=== PATIENT | male | born 1945 | race Caucasian/White ===

== ENCOUNTER 2016-11-21 09:59 | Outpatient (CLI) | payer MEDICARE ==
[~2016-11-21] VITALS: Ht 167.6 cm; Wt 105.8 kg
[~2016-11-21 09:59] MED LIST: ASPI-587 PO; ATEN100T PO; ATEN100T88 PO; CYCL10TA45 PO; EZET1TAB26 PO; EZET1TAB41 PO; FENO135C PO; FENO135C4 PO; GLUC100016 PO; GLUC1TAB20 PO; HCT25T PO; HYDR25TA4 PO; IRBE150T19 PO; IRBE150T26 PO; LANS30CA PO; LIRA0.6P2 SQ; LIRA0.6P3 SQ; MECL-124 PO; MTF500T PO; MULT-1029 PO; NIAC500T6 PO; OMEG-109 PO; OMEG1CAP PO; OXYC-12 PO
[2016-11-21] MEDS ORDERED: FENO135C PO (10:14)
[2016-11-21] MEDS ORDERED: VITA1CAP PO (10:14)
[2016-11-21] MEDS ORDERED: TAMS0.4C98 PO (10:14)
[2016-11-21 10:18] VITALS: BP 143/82
[2016-11-21 10:47] LABS: BASOPHILS # (AUTO) 0.1 10^3/uL (0.0-0.1); BASOPHILS % (AUTO) 1 % (0-10); BILIRUBIN,URINE NEGATIVE (NEGATIVE); EOSINOPHILS # (AUTO) 0.3 10^3/uL (0.0-0.3); EOSINOPHILS % (AUTO) 4 % (0-10); KETONES,URINE NEGATIVE (NEGATIVE); LEUKOCYTE ESTERASE ,URINE NEGATIVE (NEGATIVE); LYMPHOCYTES # (AUTO) 2.2 X 10^3 (1.0-4.0); LYMPHOCYTES % (AUTO) 29 % (12-44); MEAN CORPUSCULAR HEMOGLOBIN 31 PG (25-34); MEAN CORPUSCULAR HGB CONC 35 G/DL (32-36); MEAN CORPUSCULAR VOLUME 89 FL (80-99); MEAN PLATELET VOLUME 10.2 FL (7.4-10.4); MONOCYTES # (AUTO) 0.8 X 10^3 (0.0-1.0); MONOCYTES % (AUTO) 11 % (0-12); NEUTROPHILS # (AUTO) 4.1 X 10^3 (1.8-7.8); NEUTROPHILS % (AUTO) 55 % (42-75); NITRITE,URINE NEGATIVE (NEGATIVE); PH,URINE 5 (5-9); PLATELET COUNT 117 10^3/uL (130-400); PROTEIN,URINE NEGATIVE (NEGATIVE); RED BLOOD COUNT 4.94 10^6/uL (4.35-5.85); RED CELL DISTRIBUTION WIDTH 13.5 % (10.0-14.5); UROBILINOGEN,URINE NORMAL (NORMAL); WHITE BLOOD COUNT 7.5 10^3/uL (4.3-11.0)
[2016-11-21 10:56] LABS: PROTHROMBIN TIME PATIENT 12.8 SEC (12.2-14.7)
[2016-11-21 10:58] LABS: SQUAMOUS EPITHELIAL CELL,UR RARE /HPF
[2016-11-21 11:09] LABS: ERYTHROCYTE SEDIMENTATION RATE 3 MM/HR (0-30)
[2016-11-21 11:42] LABS: ALBUMIN 4.3 GM/DL (3.2-4.5); BILIRUBIN,TOTAL 0.5 MG/DL (0.1-1.0); CALCIUM 9.4 MG/DL (8.5-10.1); CREATININE SERUM 1.37 MG/DL (0.60-1.30); POTASSIUM 3.9 MMOL/L (3.6-5.0); TOTAL PROTEIN 7.1 GM/DL (6.4-8.2)
--- NOTE | 2016-11-21 12:03 | Diagnostic Imaging Report ---
PA and lateral chest 1104 hours. INDICATION: Preop total knee replacement. FINDINGS: The heart size is within normal limits and stable when compared to 12/03/13. The lungs remain clear. There is still no sign of failure, pneumonia or pleural effusion. Mediastinum is not widened. The osseous structures are intact. IMPRESSION: There is no evidence for an acute cardiopulmonary abnormality. When compared to the prior study, there has been no significant change. Dictated by: Dictated on workstation # [id number]
[2016-11-28] MEDS ORDERED: OXYC-197 PO (12:48)
== END 2016-11-21 12:59 | disposition home or self-care (01) ==
LOC: PREOP 09:59
PROVIDERS: ATTEND Orthopaedic Surgery
DX: Z01.812 Encounter for preprocedural laboratory examination (principal); Z01.810 Encounter for preprocedural cardiovascular examination; M17.11 Unilateral primary osteoarthritis, right knee
CPT/HCPCS: 36415; 71020; 80053; 81000; 85025; 85610; 85652; 86850; 86900; 86901; 87081; 93005

== ENCOUNTER 2016-11-28 05:59 | Inpatient (IN) | payer MEDICARE ==
--- NOTE | 2016-11-20 12:48 | HISTORY AND PHYSICAL ---
DATE OF SERVICE: REASON FOR ADMISSION: On 11/28/2016 for a right total knee arthroplasty. HISTORY: The patient is a 71-year-old with progressively worsening right knee pain. He has undergone treatment with injections, arthroscopy and antiinflammatories as well as activity modifications without relief. Radiographs reveal complete loss of his medial and patellofemoral joint spaces. He reports functional impairment that has been progressive and because of this, the patient has elected to proceed with surgical intervention. REVIEW OF SYSTEMS: No chest pain, no shortness of breath, no dysuria. PAST MEDICAL HISTORY: Diabetes, reflux, hypertension, osteoarthritis, sleep apnea, hypercholesterolemia. PAST SURGICAL HISTORY: Herniorrhaphy, lipoma, bilateral knee arthroscopy, left total knee arthroplasty. FAMILY HISTORY: Significant for hypertension. PRIMARY CARE PROVIDER: ____ MEDICATIONS: 1. Victoza. 2. Metformin. 3. Avapro. 4. Prevacid. 6. Trilipix. 7. Atenolol. 8. Hydrochlorothiazide. 9 Vytorin. 10. Niacin. 11. Flomax. ALLERGIES: No known drug allergies. SOCIAL HISTORY: The patient is a former smoker and drinks alcohol socially. PHYSICAL EXAM: GENERAL: The patient is well-developed, well-nourished, in no acute distress. HEENT: Normocephalic, atraumatic. Pupils are equal, round and reactive to light. Oropharynx is clear. NECK: Supple. No lymphadenopathy. LUNGS: Clear to auscultation bilaterally. HEART: Regular rate and rhythm. ABDOMEN: Soft, nontender, nondistended. EXTREMITIES: The right knee demonstrates a moderate effusion. There is no erythema or warmth. He ambulates with an antalgic gait on the right. He has varus alignment. He has patellofemoral crepitus. Pain with patellar loading. Range of motion is 0/4/120. There is no varus or valgus laxity. Negative anterior and posterior drawer. IMPRESSION: Right knee, severe osteoarthritis, unresponsive to conservative measures. PLAN: Right total knee arthroplasty. The risks, benefits, options, ramifications and recovery were discussed at length with the patient. He understands and wishes to proceed. Job ID: [id number] DocumentID: [id number] Dictated Date: 11/20/2016 09:48:21 Woven Label Designer Date: 11/20/2016 10:06:59 Dictated By: YUDELKA URRUTIA MD
[~2016-11-28] VITALS: Ht 167.6 cm; Wt 105.8 kg
[~2016-11-28 05:59] MED LIST changes: +TAMS0.4C98 PO; +VITA1CAP PO
[2016-11-28] MEDS: LACTATED RINGERS 1,000 ML IV PRN ×3 (06:20→09:51)
[2016-11-28] MEDS ORDERED: FAMOTIDINE 20MG/2ML IV (PEPCID) ONE (06:24)
[2016-11-28] MEDS ORDERED: CEFUROXIME 1.5 GM (ZINACEF) VIAL ONE (06:24)
[2016-11-28] MEDS ORDERED: NS (IVPB) 50 ML ONE (06:25)
[2016-11-28] MEDS ORDERED: SEVOFLURANE (ULTANE) 15 ML INHAL SOLN ONE (06:30)
[2016-11-28] MEDS ORDERED: ROCURONIUM 50 MG/5 ML (ZEMURON) VIAL IV ONE (06:30)
[2016-11-28] MEDS ORDERED: proPOfol 200 MG/20 ML (DIPRIVAN) VIAL IV ONE (06:30)
[2016-11-28] MEDS ORDERED: LIDOCAINE PF 2% 5 ML (XYLOCAINE) VIAL ONE (06:30)
[2016-11-28] MEDS ORDERED: MIDAZOLAM 2 MG/2 ML (VERSED) VIAL ONE (06:30)
[2016-11-28] MEDS ORDERED: ONDANSETRON 4 MG/2 ML (SDV) Z0FRAN ONE (06:30)
[2016-11-28] MEDS ORDERED: LACTATED RINGERS 1,000 ML IV ONE ×2 (06:30→09:45)
[2016-11-28] MEDS ORDERED: fentaNYL INJECTION 100 MCG/2 ML AMP ONE (06:30)
[2016-11-28] MEDS ORDERED: CEFUROXIME 1.5 GM/NS 50 ML IVPB IV ONE ×2 (06:45)
--- NOTE | 2016-11-28 07:27 | Progress Note-Pre Operative ---
Pre-Operative Progress Note H&P Reviewed The H&P was reviewed, patient examined and no changes noted. Date Seen by Provider: Nov 28, 2016 Time Seen by Provider: 07:15 Date H&P Reviewed: Nov 28, 2016 Time H&P Reviewed: 07:11 Pre-Operative Diagnosis: right knee primary osteoarthritis YUDELKA URRUTIA MD Nov 28, 2016 07:27
--- NOTE | 2016-11-28 07:28 | Progress Note-Post Operative ---
Post-Operative Progess Note Surgeon (s)/Punch Machine Operator (s) Surgeon YUDELKA URRUTIA MD Punch Machine Operator: Blake Greco Pre-Operative Diagnosis right knee primary osteoarthritis Post-Operative Diagnosis right knee primary osteoarthritis Procedure & Operative Findings Date of Procedure 11/28/16 Procedure Performed/Findings right total knee arthroplasty Anesthesia Type GETA Estimated Blood Loss Estimated blood loss (mL): minimal Specimens/Packing Specimens Removed none Packing: none YUDELKA URRUTIA MD Nov 28, 2016 07:28
[2016-11-28] MEDS ORDERED: diphenhydrAMINE 50 MG/ML INJ (BENADRYL) IVP PRN (07:30)
[2016-11-28] MEDS ORDERED: ONDANSETRON 4 MG/2 ML (SDV) Z0FRAN IVP PRN ×2 (07:30→08:45)
[2016-11-28] MEDS ORDERED: ACETAMINOPHEN 325 MG TABLET/CAPLET (TYLENOL) PO PRN (07:30)
[2016-11-28] MEDS ORDERED: FAMOTIDINE 20MG/2ML IV (PEPCID) IV ONE (07:45)
[2016-11-28] MEDS ORDERED: INTRA-ARTICULAR INJ ONE ×5 (07:45)
[2016-11-28] MEDS ORDERED: fentaNYL INJECTION 250 MCG/5 ML AMP ONE (07:57)
[2016-11-28] MEDS ORDERED: NEOSTIGMINE (BLOXIVERZ ) 1 MG/1ML 10 ML VIAL ONE (08:17)
[2016-11-28] MEDS ORDERED: GLYCOPYRROLATE 0.2 MG/ML (ROBINUL) 2 ML VIAL ONE (08:17)
[2016-11-28] MEDS ORDERED: HYDROmorphone (DILAUDID) 2 MG/ML VIAL ONE (09:37)
[2016-11-28] MEDS: morphine INJ 10 MG/ML 1ML (SYR OR VIAL) IVP PRN ×3 (09:38→11:05)
[2016-11-28] MEDS: HYDROmorphone (DILAUDID) 2 MG/ML VIAL IVP PRN ×2 (09:45→09:55)
[2016-11-28 10:30] VITALS: BP 171/76
--- NOTE | 2016-11-28 10:52 | Diagnostic Imaging Report ---
EXAMINATION: Right knee in OR at 0933 hours. INDICATION: Total knee replacement. TECHNIQUE: AP and lateral views of the right knee were received from the OR. COMPARISON: There are no prior studies available for comparison. FINDINGS: There is a total knee prosthesis in place. The prosthetic components seem to be in good position. There is also some gas in the soft tissues about the knee joint and there are skin yen evident along the anterior margin of the knee joint. There is no fracture or acute bony abnormality evident. IMPRESSION: Stable post operative right knee. Dictated by: Dictated on workstation # [id number]
[2016-11-28] MEDS ORDERED: NS IV 500 ML 500 ML IV SCH (11:00)
[2016-11-28] MEDS: morphine PCA 30 MG/30 ML VIAL IV PRN (11:11)
[2016-11-28] MEDS: NS IV 1000 ML 1,000 ML IV SCH (11:15)
[2016-11-28 12:00] VITALS: BP 122/77
[2016-11-28] MEDS: SENNA W/DOCUSATE (SENOKOT S) TABLET PO SCH ×2 (12:06→21:16)
--- NOTE | 2016-11-28 12:31 | OPERATIVE REPORT ---
DATE OF SERVICE: 11/28/2016 PREOPERATIVE DIAGNOSIS: Right knee primary osteoarthritis. POSTOPERATIVE DIAGNOSIS: Right knee primary osteoarthritis. PROCEDURE: Right total knee arthroplasty. SURGEON: YUDELKA URRUTIA MD WELL BLOWER: CHANDRIKA NORMAN who assisted throughout the procedure and closed the incision. ANESTHESIA: General endotracheal by Billy Isaac CRNA. TOURNIQUET TIME: Approximately 70 minutes at 300 mmHg. ESTIMATED BLOOD LOSS: Minimal. DRAINS: None. COMPLICATIONS: None. MATERIALS: MicroPort cemented size 5 humerus, cemented size 5 tibia with a 10 mm insert and cemented size 32 patella. The patient was transported to the recovery room awake and in stable condition. STATEMENT OF MEDICAL NECESSITY: The patient is a 71-year-old gentleman with progressively worsening right knee pain with tricompartmental osteoarthritis. He had undergone treatment with injections, arthroscopy, activity modifications and anti-inflammatories without relief due to functional impairment and failure to improve with conservative measures. The patient elected to proceed with surgical intervention. PROCEDURE: After risks and benefits of the procedure were discussed and questions were answered, an informed consent was signed and placed on the chart. The operative site was confirmed in the preoperative area and initialed by surgeon. The patient was then transported to the operating room and a time out was performed confirming the operative site. The right lower extremity was then prepped and draped in the usual sterile fashion with the leg elevated and the knee flexed. The tourniquet was deflated to 300 mmHg. A standard anterior approach was utilized, hemostasis was obtained with cautery. A new parapatellar arthrotomy was performed leaving a 1 cm cuff on the patella for later reattachment and a portion of the fat pad was resected. The ACL was resected. Subperiosteal release was performed in the proximal medial tibia, with a curved osteotome, being careful to stay on the bony surface. The intramedullary guide was passed into the femur and the distal cutting block was placed. A distal cut was made and the femur sized to size 5. The 5 cutting block was placed parallel to the epicondylar axis and cuts were made from posterior to anterior. Subperiosteal release was then performed on the posterior distal femur, being careful to stay on the bony surface. The intramedullary guide was then passed into the tibia and the cutting block was placed. The drop colleen transected the intramedullary access and the cut was made. A 5 baseplate was placed and prepared with the drill and Keel punch after ensuring the drop colleen was well positioned. The femoral trial was placed and the trochlear cut was made. The 10 mm insert was placed. The patella was then prepared by using the free-hand technique and resecting 10 mm off the undersurface. The peg guide was placed and the peg holes were drilled. The trial was placed and the knee was taken through range of motion. Full extension was easily obtained. There was no varus/valgus laxity in flexion or extension. Trace anterior drawer and flexion. No anterior/posterior laxity in extension or through the mid range of motion. The trials were removed. The joint was copiously irrigated with the pulse lavage. The tami-articular block was placed in the posterior capsule, medial and lateral retinaculum extensor mechanism and subcutaneous tissues. The bone ends were irrigated and dried. The tibial baseplate was cemented into position and excessive cement was removed. The superior surface was irrigated and the polyethylene insert was placed. The distal femur was irrigated and dried and the femoral prosthesis was cemented into position removing excessive cement. The knee was brought out at full extension and held until the cement had cured. The undersurface of the patella was irrigated and dried and the patella button was cemented into position and held until the cement had cured. Once the cement had cured, the knee was taken through range of motion and the patella tracked well. There was no varus/valgus laxity or anterior/posterior laxity in flexion or extension. The joint was further irrigated with the pulse lavage. The arthrotomy was closed with #2 Tevdek in figure of eight interrupted fashion. The knee was then flexed and no undue tension was noted at the repair site and the patella tracked well. Subcutaneous tissues were irrigated with pulse lavage using a total of 6 liters throughout the procedure. A 0 Vicryl was used to reapproximate the deep subcutaneous tissue, 2-0 Vicryl for the superficial subcutaneous tissue. The skin was closed with yen. A soft dressing was applied and the tourniquet was deflated and the patient was transported to the recovery room awake and in stable condition. Job ID: [id number] DocumentID: [id number] Dictated Date: 11/28/2016 09:29:56 Creative Arts Therapist Date: 11/28/2016 12:31:37 Dictated By: YUDELKA URRUTIA MD
--- NOTE | 2016-11-28 12:46 | Progress Note-Standard ---
Standard Progress Note Progress Notes/Assess & Plan Date Seen by Provider: Nov 28, 2016 Time Seen by Provider: 11:40 Progress/Assessment & Plan Post op check No complaints radiographs--HW well positioned. No fractures RLE-- 2 plus DP pulse with brisk cap refill. Intact sensation throughout. Intact DF and PF of toes and ankle s/p RTKA doing well Mobilize as able YUDELKA URRUTIA MD Nov 28, 2016 12:46
[2016-11-28] MEDS ORDERED: OXYC-197 PO (12:48)
--- NOTE | 2016-11-28 12:50 | D/C HH Face to Face Order ---
D/C Face to Face Orders Instructions for Patient Patient Instructions/FollowUp: three weeks Physician to follow Patient: three weeks Discharge Diet for Home: Regular Diet Patient Data-Allergies,Ht & Wt Patient Allergies: Coded Allergies: No Known Drug Allergies (Unverified , 11/21/16) Height (Feet): 5 Height (Inches): 6.00 Weight (Pounds): 233 Weight (Ounces): 3.0 Home Health Need/Face to Face Date of Face to Face: Nov 28, 2016 Clinical Findings: Generalized weakness and fatigue, Non or partial weight bearing, Pain with ambulation I have seen Pt [id number]: Yes Discharged To: Home Diagnosis/Conditions: right total knee arthroplasty Problems/Diagnosis/Condition: Patient is Homebound due to: Joan fall risk due to instabilty, Pain w/ ambulation Homebound Status Due to the above stated illness, injury or surgical procedure (medical condition or diagnosis) and associated clinical findings, the patient is homebound because of his/her inability to leave home except with aid of a supportive device and/or person AND leaving the home requires a considerable and taxing effort or is medically contraindicated. Pt req the following assistanc: Walker Home Health Nursing Orders Home Health Services Order: Physical Therapy-Evaluate & Treat Home Health Infusion Therapy Line Start Date: Nov 28, 2016 Line Start Time: 0620 Line Type: Saline Lock Site Location: Wrist Certify Stmt I certify that this patient is under my care and that I, a nurse practitioner or a physician; a retail assistant store manager working with me, had a face to face encounter that - meets the physician face to face encounter requirements with this patient as dated. YUDELKA URRUTIA MD Nov 28, 2016 12:50
--- NOTE | 2016-11-28 14:34 | Physical Therapy Evaluation ---
PT Evaluation-General Medical Diagnosis Admission Date Nov 28, 2016 at 05:59 Medical Diagnosis: right TKA Onset Date: Nov 28, 2016 Therapy Diagnosis Therapy Diagnosis: impaired mobility, strength, ROM Height/Weight Height (Feet): 5 Height (Inches): 6.00 Weight (Pounds): 233 Weight (Ounces): 3.0 Precautions Precautions/Isolations: Standard Precautions Weight Bear Status Weight Bearing Restriction: Weight Bearing/Tolerated Location Restriction: R LE Referral Physician: Blake Greco Reason for Referral: Evaluation/Treatment Medical History Pertinent Medical History: DM, HTN, OA Additional Medical History reflux, sleep apnea, hypercholesterolemia, surg (herniorrhaphy, lipoma, bilateral knee arthroscopy, left total knee) Current History progressively worsening right knee pain, loss of medial and patellofemoral joint spaces Reviewed History: Yes Social History Home: Single Level Current Living Status: Spouse Entry Into Home: Stairs With Railing PT Steps Into Home: 1 Prior/Core FIM Prior Level of Function Functional Gunpowder Measure 0=Not Assessed/NA 4=Minimal Assistance 1=Total Assistance 5=Supervision or Setup 2=Maximal Assistance 6=Modified Gunpowder 3=Moderate Assistance 7=Complete Gunpowder Bed Mobility: 7 Transfers (B,C,W/C) (FIM): 7 Gait: 7 PT Evaluation-Current Subjective Patient in bed pre tx, agrees to PT, has no pain, states that his leg is pretty numb, but he does have intact light touch sensation. Pt/Family Goals to be independent at home Objective Patient Orientation: Person, Place, Situation Attachments: IV ROM/Strength ROM Lower Extremities right knee flexion 90 degrees, extension +5 degrees Strenght Lower Extremities NT due to recent surgery Integumentary/Posture Bowel Incontinence: No Bladder Incontinence: No Neuromuscular (Tone, Coordination, Reflexes) WNL Sensory Vision: Wears Glasses Hearing: Functional Sensation Right Lower Extremit: Intact Sensation Left Lower Extremity: Intact Transfers Functional Gunpowder Measure 0=Not Assessed/NA 4=Minimal Assistance 1=Total Assistance 5=Supervision or Setup 2=Maximal Assistance 6=Modified Gunpowder 3=Moderate Assistance 7=Complete Gunpowder Transfers (B, C, W/C) (FIM): 4 Scootin Rollin Supine to/from Sit: 5 Sit to/from Stand: 4 Patient did have some minor dizziness upon sitting and standing but it resolved quickly. Cues for safety and hand placement. Gait Mode of Locomotion: Walk Anticipated Mode of Locomotion: Walk Gait (FIM): 1 Distance: 20'x2 Gait Level of Assist: 4 Gait Persons Needed: 1 Gait Assistive Device: FWW Comments/Gait Description Antalgic, slow, decreased right step length and knee flexion Balance Sitting Static: Normal Sitting Dynamic: Normal Standing Static: Fair Standing Dynamic: Fair Treatment Patient in bed post tx with CPM donned at 60 degrees flexion and -2 degrees extension. He also performed right lower extremity supine exercises x10 (AP, QS , HS, SLR, SAQ) Assessment/Needs Patient has impaired mobility, strength, ROM post right TKA Rehab Potential: Good PT It Risk And Assurance Senior Manager Goals It Risk And Assurance Senior Manager Goals PT [facility] Goals Time Frame: Dec 05, 2016 Transfers (B,C,W/C) (FIM): 5 Gait (FIM): 5 Distance: 150' Gait Level of Assist: 5 Gait Assistive Device: FWW PT Plan Problem List Problem List: Activity Tolerance, Functional Strength, Safety, Balance, Gait, Transfer, Bed Mobility, ROM Treatment/Plan Treatment Plan: Continue Plan of Care Treatment Plan: Bed Mobility, Concurrent Therapy, Education, Functional Activity Ho, Functional Strength, Gait, Therapeutic Exercise, Transfers Treatment Duration: Dec 05, 2016 Frequency: Twice Daily (6 days a week) Estimated Hrs Per Day: .25 hour per day (15-30' per day) Patient and/or Family Agrees t: Yes Safety Risks/Education Patient Education: Gait Training, Transfer Techniques, Correct Positioning, Safety Issues Teaching Recipient: Patient Teaching Methods: Demonstration, Discussion Response to Teaching: Reinforcement Needed Discharge Recommendations Plan Patient will perform bed mobility and transfer training, balance and endurance training, functional strengthening, stair training, gait training, and education , to improve functional mobility and independence at home. Therapy D/C Recommendations: Home w/ Family Support Time/GCodes Time In: 1405 Time Out: 1430 Total Billed Treatment Time: 25 Total Billed Treatment 1 visit EVL 15' GT 10' FLORECITA GARZA PT Nov 28, 2016 14:34
[2016-11-28] MEDS: CEFUROXIME INJECTION 750 MG in NS (IVPB) 50 ML IV SCH (15:58)
[2016-11-28 16:40] VITALS: BP 133/75
[2016-11-28 19:40] VITALS: BP 128/87
[2016-11-28 23:40] VITALS: BP 130/60
[2016-11-29] MEDS: NS IV 1000 ML 1,000 ML IV SCH ×3 (00:33→13:10)
[2016-11-29] MEDS: CEFUROXIME INJECTION 750 MG in NS (IVPB) 50 ML IV SCH (00:33)
[2016-11-29 03:30] VITALS: BP 129/68
[2016-11-29] MEDS ORDERED: MULTIVIT W/MINERALS TAB (THERAGRAN M) PO SCH (07:00)
--- NOTE | 2016-11-29 07:49 | Progress Note-Standard ---
Standard Progress Note Progress Notes/Assess & Plan Date Seen by Provider: Nov 29, 2016 Time Seen by Provider: 07:48 Progress/Assessment & Plan Post op check No complaints radiographs--HW well positioned. No fractures RLE-- 2 plus DP pulse with brisk cap refill. Intact sensation throughout. Intact DF and PF of toes and ankle s/p RTKA doing well Mobilize as able Final Diagnosis No complaints Vital Signs Date Time Temp Pulse Resp B/P (MAP) Pulse Ox O2 Delivery O2 Flow Rate FiO2 11/29/16 03:30 98.6 75 20 129/68 96 Nasal Cannula 1.00 11/28/16 23:40 98.9 77 20 130/60 96 Nasal Cannula 1.00 11/28/16 20:00 95 Nasal Cannula 1.00 11/28/16 19:40 98.9 80 20 128/87 97 Nasal Cannula 1.00 11/28/16 18:24 20 11/28/16 16:40 97.0 75 18 133/75 97 Nasal Cannula 2.00 11/28/16 12:10 93 Nasal Cannula 2.50 11/28/16 12:02 98.1 11/28/16 12:02 98.1 11/28/16 12:00 97.0 71 20 122/77 95 Nasal Cannula 2.00 11/28/16 11:15 20 11/28/16 11:11 20 11/28/16 11:05 98.1 11/28/16 10:30 98.1 67 20 171/76 92 Simple Mask 2.50 11/28/16 10:30 93 Simple Mask 2.50 Laboratory Tests Test 11/29/16 06:02 Range/Units Hemoglobin 10.6 L 13.3-17.7 G/DL Hematocrit 32 L 40-54 % RLE--dressing intact. NVI distally. No calf tenderness. Neg Chloe's s/p RTKA mobilize YUDELKA URRUTIA MD Nov 29, 2016 07:49
[2016-11-29 08:00] VITALS: BP 113/70
[2016-11-29] MEDS: SENNA W/DOCUSATE (SENOKOT S) TABLET PO SCH ×2 (08:17→20:10)
[2016-11-29] MEDS: ASPIRIN E.C. 81 MG (ECOTRIN) TAB PO SCH ×2 (08:19→09:25)
[2016-11-29] MEDS: ENOXAPARIN 30 MG/0.3 ML (LOVENOX) SYR SC SCH ×2 (08:19→20:10)
[2016-11-29] MEDS: oxyCODONE/APAP 5/325MG (PERCOCET 5) TABLET PO PRN ×8 (08:59→23:29)
[2016-11-29] MEDS ORDERED: ATENOLOL 50 MG (TENORMIN) TAB PO SCH (10:28)
[2016-11-29] MEDS ORDERED: PANTOPRAZOLE 40 MG (PROTONIX) TAB PO SCH (10:29)
--- NOTE | 2016-11-29 10:53 | Consultation-Hospitalist ---
HPI History of Present Illness: HPI/Chief Complaint CC: Medical management following uncomplicated right total knee replacement POD # 1 HPI: This is a [address] Gutierrez who presented after surgery with Dr. Martinez. 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 Pt states that he already took his home meds by himself today Pt confirms PCP as Dr. 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 Pt states he recently took his pain meds Pt confirmed working with PT Physical exam stable Pt denies having BMs but is urinating regularly Pt wondered why we needed to take labs again tomorrow Scribed by Agnieszka Champagne under the direct supervision of Dr. Dowd. 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) Alcohol Use: Occasionally Uses Recreational Drug Use: No Smoking Status: Former Smoker Former Smoker, Quit: Apr 02, 1994 Physical Abuse Screen: No Sexual Abuse: No Recent Foreign Travel: No Contact w/other who traveled: No Recent Hopitalizations: No Recent Infectious Disease Expo: No Immunizations Up To Date Tetanus Booster (TDap): Unknown Pediatric: No Date of Pneumonia Vaccine: Feb 03, 2015 Seasonal Allergies Seasonal Allergies: No Surgeries Yes (ING HERNIA, BL KNEE SCOPES, GOITER REMOVED, LYPOMAS REMOVED, SKIN LESIONS, ) Respiratory Yes (USES CPAP) Sleep Apnea Currently Using CPAP: Yes Currently Using BIPAP: No Cardiovascular Yes High Cholesterol, Hypertension Neurological No Reproductive System Hx Reproductive Disorders: No Sexually Transmitted Disease: No HIV/AIDS: No Genitourinary Yes (URINARY FREQUENCY) Gastrointestinal Yes Gastroesophageal Reflux Musculoskeletal Yes (OSTEOARTHRITIS) Degenerate Disk Disease, Arthritis Endocrine History of Endocrine Disorders: Yes Endocrine Disorders: Diabetes, Non-Insulin dep HEENT History of HEENT Disorders: Yes (GLASSES, BEGINING OF CATARACTS) HEENT Disorders: Cataract Loss of Vision: Bilateral Hearing Impairment: Denies Cancer Yes (PRE-SKIN CANCER REMOVAL) Skin Psychosocial History of Psychiatric Problem: No Integumentary History of Skin or Integumenta: No Blood Transfusions History of Blood Disorders: No Adverse Reaction to a Blood Tr: No Family Medical History Family Hx: Alcoholism 19 FATHER G8 BROTHER Drug abuse G8 BROTHER No Family History of: AIDS Alzheimer's disease Arthritis Asthma Cancer of mouth Cardiovascular disease Colon cancer Completed stroke Dementia Diabetes mellitus Hypertension Kidney disease Myocardial infarction Parkinson's disease Prostate cancer Psychosocial problem Respiratory disorder Seizure disorder Severe allergy Thyroid disease Tuberculosis Review of Systems Constitutional: see HPI EENTM: no symptoms reported Respiratory: no symptoms reported Cardiovascular: no symptoms reported Gastrointestinal: no symptoms reported Genitourinary: no symptoms reported Musculoskeletal: joint pain Skin: no symptoms reported Psychiatric/Neurological: No Symptoms Reported All Other Systems Reviewed Negative Unless Noted: Yes Physical Exam Physical Exam Vital Signs Vital Sign - Last 12Hours 11/28/ 10:30 Temp 98.1 Pulse 67 Resp 20 B/P (MAP) 171/76 Pulse Ox 93 O2 Delivery Simple Mask O2 Flow Rate 2.50 Capillary Refill : Less Than 3 Seconds General Appearance: No Apparent Distress, WD/WN, Obese Eyes: Bilateral Eye Normal Inspection, Bilateral Eye PERRL HEENT: PERRL/EOMI, Normal ENT Inspection, Pharynx Normal Neck: Full Range of Motion, Normal Inspection, Non Tender, Supple, Carotid Bruit Respiratory: Chest Non Tender, Lungs Clear, Normal Breath Sounds, No Accessory Muscle Use, No Respiratory Distress Cardiovascular: Regular Rate, Rhythm, No Edema, No Gallop, No JVD, No Murmur, Normal Peripheral Pulses Gastrointestinal: Normal Bowel Sounds, No Organomegaly, No Pulsatile Mass, Non Tender, Soft Back: Normal Inspection, No CVA Tenderness, No Vertebral Tenderness Extremity: Normal Capillary Refill, Normal Inspection, Normal Range of Motion, Non Tender, No Calf Tenderness, No Pedal Edema Neurologic/Psychiatric: Alert, Oriented x3, No Motor/Sensory Deficits, Normal Mood/Affect Skin: Normal Color, Warm/Dry Lymphatic: No Adenopathy Results Results/Procedures Lab Laboratory Tests 11/29/16 06:02 Assessment/Plan Admission Diagnosis Assessment: Status post uncomplicated right total knee replacement POD # 1 Diabetes mellitus Hypertension Hyperlipidemia Obstructive sleep apnea maintained on CPAP Assessment and Plan Plan: Restart home meds Hold Hydrochlorothiazide due to low BP and propensity for hyponatremia Labs in am Clinical Quality Measures DVT/VTE Risk/Contraindication: Risk Factor Score Per Nursin RFS Level Per Nursing on Admit: 4+=Very High MARILYN DOWD DO Nov 29, 2016 10:53
[2016-11-29] MEDS ORDERED: PATIENT MAY USE OWN MEDS, ALL MC SCH (11:15)
--- NOTE | 2016-11-29 11:29 | Physical Therapy Daily Note ---
PT Daily Note-Current Subjective Patient agrees to PT. No c/o at this time. Pain Numeric Pain Scale: 8 Location: Right Location Body Site: Knee Pain Description: Acute Mental Status Patient Orientation: Normal For Age Attachments: Polar Pack, IV Transfers Functional [place] Measure 0=Not Assessed/NA 4=Minimal Assistance 1=Total Assistance 5=Supervision or Setup 2=Maximal Assistance 6=Modified [place] 3=Moderate Assistance 7=Complete IndependenceIRFPAI Quality Coding Scale 6 Independent with activity with or without an assistive device 5 Patient requires set up or clean up by helper. Patient completes activity by themselves 4 Supervision or touching assist (CGA). [place] provide cues , steadying assist 3 The helper provides less than half the effort to complete the activity 2 The helper provides more than half the effort to complete the activity 1 Dependent. The helper does all the effort to complete an activity 7 Patient refused to complete or attempt activity 9 The patient did not perform the activity before the current illness or injury 88 Not attempted due to Medical conditions or safety concerns Transfers (B, C, W/C) (FIM): 5 Scootin Rollin Supine to/from Sit: 5 Sit to/from Stand: 5 Weight Bearing Weight Bearing Restriction: Weight Bearing/Tolerated Location Restriction: R LE Gait Training Gait (FIM): 5 Distance (FIM): 3=150 ft Distance: 225' Gait Level of Assist: 5 Gait Assistive Device: FWW safe and functional with FWW Exercises Supine Ex: Ankle pumps, Quad Set, Heel Slides, Straight leg raise Supine Reps: 10 Seated Therapy Exercises: Ankle pumps, Long arc quads Seated Reps: 15 Treatments CPM 0-[address] Assessment Patient improving with treatment plan. PT encouraged patient to perform exercises PRN. PT Cooper Apprentice Goals Shelter Goals PT Cooper Apprentice Goals Time Frame: Dec 05, 2016 Transfers (B,C,W/C) (FIM): 5 Gait (FIM): 5 Distance: 150' Gait Level of Assist: 5 Gait Assistive Device: FWW PT Plan Treatment/Plan Treatment Plan: Continue Plan of Care Treatment Plan: Bed Mobility, Concurrent Therapy, Education, Functional Activity Ho, Functional Strength, Gait, Therapeutic Exercise, Transfers Treatment Duration: Dec 05, 2016 Frequency: Twice Daily (6 days a week) Estimated Hrs Per Day: .25 hour per day (15-30' per day) Patient and/or Family Agrees t: Yes Time/GCodes Time In: 810 Time Out: 835 Total Billed Treatment Time: 25 Total Billed Treatment 1 visit EX 15 min GT 10 min NOEMI HUGGINS PT Nov 29, 2016 11:29
[2016-11-29 12:00] VITALS: BP 152/72
[2016-11-29] MEDS: OMEGA 3 (FISH OIL) 1000 MG CAP PO SCH ×2 (12:33→17:30)
--- NOTE | 2016-11-29 13:39 | Physical Therapy Daily Note ---
PT Daily Note-Current Subjective Patient c/o 9/10 right knee pain. RN notified and is issuing. Pain Numeric Pain Scale: 9 Location: Right Location Body Site: Knee Pain Description: Acute Mental Status Patient Orientation: Normal For Age Attachments: Polar Pack, IV Transfers Functional [place] Measure 0=Not Assessed/NA 4=Minimal Assistance 1=Total Assistance 5=Supervision or Setup 2=Maximal Assistance 6=Modified [place] 3=Moderate Assistance 7=Complete IndependenceIRFPAI Quality Coding Scale 6 Independent with activity with or without an assistive device 5 Patient requires set up or clean up by helper. Patient completes activity by themselves 4 Supervision or touching assist (CGA). [place] provide cues , steadying assist 3 The helper provides less than half the effort to complete the activity 2 The helper provides more than half the effort to complete the activity 1 Dependent. The helper does all the effort to complete an activity 7 Patient refused to complete or attempt activity 9 The patient did not perform the activity before the current illness or injury 88 Not attempted due to Medical conditions or safety concerns Transfers (B, C, W/C) (FIM): 5 Scootin Rollin Supine to/from Sit: 5 Sit to/from Stand: 5 Weight Bearing Weight Bearing Restriction: Weight Bearing/Tolerated Location Restriction: R LE Gait Training Gait (FIM): 5 Distance (FIM): 3=150 ft Distance: 225' Gait Level of Assist: 5 Gait Assistive Device: FWW antalgic, reciprocal pattern Exercises Supine Ex: Ankle pumps, Quad Set, Heel Slides, Straight leg raise, Hip abd/add Supine Reps: 15 (to increase ROM right knee; patient has ~20 degree lack of extension) Assessment CPM 0-60 degrees with polar pack in place. Patient improving with treatment plan and is very aware of knee "block" wearing off. Patient is limited with right knee ROM due to pain and edema. Education with patient on importance of attaining knee ROM actively to benefit from elective surgery. PT Professor Of Business Administration Goals Professor Of Business Administration Goals PT Professor Of Business Administration Goals Time Frame: Dec 05, 2016 Transfers (B,C,W/C) (FIM): 5 Gait (FIM): 5 Distance: 150' Gait Level of Assist: 5 Gait Assistive Device: FWW PT Plan Treatment/Plan Treatment Plan: Continue Plan of Care Treatment Plan: Bed Mobility, Concurrent Therapy, Education, Functional Activity Ho, Functional Strength, Gait, Therapeutic Exercise, Transfers Treatment Duration: Dec 05, 2016 Frequency: Twice Daily (6 days a week) Estimated Hrs Per Day: .25 hour per day (15-30' per day) Patient and/or Family Agrees t: Yes Time/GCodes Time In: 1305 Time Out: 1330 Total Billed Treatment Time: 25 Total Billed Treatment 1 visit EX 15 min GT 10 min NOEMI HUGGINS PT Nov 29, 2016 13:39
--- NOTE | 2016-11-29 13:44 | Occ Therapy Progress Note ---
Therapy Progress Note 1330 to 1335 Pt seen in room, up in bed, present. After introduction to OT, pt indicated that he has done this before and he had no questions or concerns. Per hx, he has had L TKA. pt did not feel that he needed OT because he has all the equipment that he needs. Per patient's wishes, will DC OT. KATHIE ANDUJAR OT Nov 29, 2016 13:44
--- NOTE | 2016-11-29 14:06 | Anesthesia-General Post-Op ---
General Patient Condition Mental Status/LOC: Same as Preop Cardiovascular: Satisfactory Nausea/Vomiting: Absent Respiratory: Satisfactory Pain: Controlled Complications: Absent Post Op Complications Complications None Follow Up Care/Instructions Patient Instructions None needed. Anesthesia/Patient Condition Patient Condition Patient is doing well, no complaints, stable vital signs, no apparent adverse anesthesia problems. No complications reported per nursing. MIREYA SADLER CRNA Nov 29, 2016 14:06
[2016-11-29] MEDS: morphine PCA 30 MG/30 ML VIAL IV PRN (14:47)
[2016-11-29 16:00] VITALS: BP 148/75
[2016-11-29] MEDS: metFORMIN 500 MG (GLUCOPHAGE) TAB PO SCH (17:29)
[2016-11-29] MEDS: TAMSULOSIN 0.4MG PO SCH (17:29)
[2016-11-29 20:06] VITALS: BP 145/78
[2016-11-29] MEDS: ATENOLOL 100 MG PO SCH (20:10)
[2016-11-29] MEDS: VYTORIN PO SCH (20:11)
[2016-11-29] MEDS: FENOFIBRIC 135 MG PO SCH (20:12)
[2016-11-29] MEDS: IRBESARTAN 150 MG (AVAPRO) TAB PO SCH (20:13)
[2016-11-29] MEDS ORDERED: eZETimibe 10 MG (ZETIA) TABLET PO SCH (21:00)
[2016-11-29] MEDS ORDERED: SIMvastatin 40 MG (ZOCOR) TAB PO SCH (21:00)
[2016-11-29] MEDS: NIACIN ER (NIASPAN) 500 MG TAB PO SCH (21:30)
[2016-11-29 23:40] VITALS: BP 127/69
[2016-11-30] MEDS: NS IV 1000 ML 1,000 ML IV SCH (01:14)
[2016-11-30] MEDS: oxyCODONE/APAP 5/325MG (PERCOCET 5) TABLET PO PRN ×10 (01:31→23:40)
[2016-11-30 03:30] VITALS: BP 119/51
[2016-11-30] MEDS: OMEGA 3 (FISH OIL) 1000 MG CAP PO SCH ×2 (06:08→17:16)
[2016-11-30] MEDS: metFORMIN 500 MG (GLUCOPHAGE) TAB PO SCH ×2 (06:09→17:11)
[2016-11-30] MEDS: MULTIVIT W/MINERALS TAB (THERAGRAN M) PO SCH (06:09)
[2016-11-30] MEDS: LANSOPRAZOLE 30 MG PO SCH (06:09)
[2016-11-30 06:11] LABS: BASOPHILS % (AUTO) 0 % (0-10); EOSINOPHILS # (AUTO) 0.1 10^3/uL (0.0-0.3); EOSINOPHILS % (AUTO) 1 % (0-10); LYMPHOCYTES # (AUTO) 1.5 X 10^3 (1.0-4.0); LYMPHOCYTES % (AUTO) 14 % (12-44); MEAN CORPUSCULAR HEMOGLOBIN 31 PG (25-34); MEAN CORPUSCULAR HGB CONC 35 G/DL (32-36); MEAN CORPUSCULAR VOLUME 91 FL (80-99); MEAN PLATELET VOLUME 9.6 FL (7.4-10.4); MONOCYTES # (AUTO) 1.8 X 10^3 (0.0-1.0); MONOCYTES % (AUTO) 16 % (0-12); NEUTROPHILS # (AUTO) 7.4 X 10^3 (1.8-7.8); NEUTROPHILS % (AUTO) 69 % (42-75); PLATELET COUNT 144 10^3/uL (130-400); RED CELL DISTRIBUTION WIDTH 13.5 % (10.0-14.5); WHITE BLOOD COUNT 10.7 10^3/uL (4.3-11.0)
[2016-11-30 06:33] LABS: ALBUMIN 3.5 GM/DL (3.2-4.5); BILIRUBIN,TOTAL 0.8 MG/DL (0.1-1.0); CALCIUM 8.1 MG/DL (8.5-10.1); CREATININE SERUM 1.39 MG/DL (0.60-1.30); POTASSIUM 3.7 MMOL/L (3.6-5.0); TOTAL PROTEIN 6.1 GM/DL (6.4-8.2)
[2016-11-30] MEDS ORDERED: morphine INJ 4 MG/ML 1 ML (VIAL/SYRINGE) IVP PRN (07:00)
--- NOTE | 2016-11-30 07:02 | Progress Note-Standard ---
Standard Progress Note Progress Notes/Assess & Plan Date Seen by Provider: Nov 30, 2016 Time Seen by Provider: 06:33 Progress/Assessment & Plan POD2 Patient has no complaints and reports good pain control. States he feels ready to go home tomorrow. Rt. knee incision well approx with no warmth, erythema or drainage. Small fracture blister noted with no warmth or erythema or purulence. H and H 32 and 11. Tmax 98.3 and VSS. Calves soft and nontender with negative Chloe's signs. Able to SLR. Doing well S/P Rt. TKA Continue PT/OT/mobilization and DVT prophylaxis DC IV and SENIOR TAX ANALYST Dressing changed today. Plan to discharge to home tomorrow. CHANDRIKA PATTERSON Nov 30, 2016 07:02
[2016-11-30 08:00] VITALS: BP 142/62
[2016-11-30] MEDS: ATENOLOL 100 MG PO SCH ×2 (08:43→21:26)
[2016-11-30] MEDS: SENNA W/DOCUSATE (SENOKOT S) TABLET PO SCH ×2 (08:47→21:25)
[2016-11-30] MEDS: LIRAGLUTIDE SQ SCH (08:50)
[2016-11-30] MEDS: ENOXAPARIN 30 MG/0.3 ML (LOVENOX) SYR SC SCH ×2 (08:51→21:25)
[2016-11-30] MEDS: ASPIRIN E.C. 81 MG (ECOTRIN) TAB PO SCH (08:53)
--- NOTE | 2016-11-30 09:07 | Physical Therapy Daily Note ---
PT Daily Note-Current Subjective Patient agrees to PT. C/o 5/10 pain. Pain Numeric Pain Scale: 5-Moderate Pain Location: Right Location Body Site: Knee Pain Description: Acute Mental Status Patient Orientation: Normal For Age Attachments: Polar Pack Transfers Functional [place] Measure 0=Not Assessed/NA 4=Minimal Assistance 1=Total Assistance 5=Supervision or Setup 2=Maximal Assistance 6=Modified [place] 3=Moderate Assistance 7=Complete IndependenceIRFPAI Quality Coding Scale 6 Independent with activity with or without an assistive device 5 Patient requires set up or clean up by helper. Patient completes activity by themselves 4 Supervision or touching assist (CGA). [place] provide cues , steadying assist 3 The helper provides less than half the effort to complete the activity 2 The helper provides more than half the effort to complete the activity 1 Dependent. The helper does all the effort to complete an activity 7 Patient refused to complete or attempt activity 9 The patient did not perform the activity before the current illness or injury 88 Not attempted due to Medical conditions or safety concerns Transfers (B, C, W/C) (FIM): 6 Scootin Rollin Supine to/from Sit: 6 Sit to/from Stand: 6 Weight Bearing Weight Bearing Restriction: Weight Bearing/Tolerated Location Restriction: R LE Gait Training Gait (FIM): 6 Distance (FIM): 3=150 ft Distance: 350' Gait Level of Assist: 6 Gait Assistive Device: FWW reciprocal pattern Exercises Supine Ex: Ankle pumps, Quad Set, Heel Slides, Straight leg raise Supine Reps: 20 (to increase AROM to improve functional mobility) Seated Therapy Exercises: Long arc quads Seated Reps: 25 Assessment Patient progressing with treatment plan. He is actively performing 15-88 degrees ROM right knee. PT Shelter Goals Crisis Mental Health Therapist Goals PT Shelter Goals Time Frame: Dec 05, 2016 Transfers (B,C,W/C) (FIM): 5 Gait (FIM): 5 Distance: 150' Gait Level of Assist: 5 Gait Assistive Device: FWW PT Plan Treatment/Plan Treatment Plan: Continue Plan of Care Treatment Plan: Bed Mobility, Concurrent Therapy, Education, Functional Activity Ho, Functional Strength, Gait, Therapeutic Exercise, Transfers Treatment Duration: Dec 05, 2016 Frequency: Twice Daily (6 days a week) Estimated Hrs Per Day: .25 hour per day (15-30' per day) Patient and/or Family Agrees t: Yes Time/GCodes Time In: 815 Time Out: 838 Total Billed Treatment Time: 23 Total Billed Treatment 1 visit EX 13 min GT 10 min NOEMI HUGGINS PT Nov 30, 2016 09:07
--- NOTE | 2016-11-30 11:21 | Progress Note-Hospitalist ---
Progress Note HPI/CC on Admission CC: Medical management following uncomplicated right total knee replacement POD # 1 HPI: This is a [address] 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 Pt states that he already took his home meds by himself today Pt confirms PCP as Dr. 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 Pt states he recently took his pain meds Pt confirmed working with PT Physical exam stable Pt denies having BMs but is urinating regularly Pt wondered why we needed to take labs again tomorrow Scribed by Agnieszka Champagne under the direct supervision of Dr. Dowd. Progress Notes/Assess & Plan Date Seen 11/30/16 Time Seen by Provider: 10:00 Admission Dx/Process Assessment: Status post uncomplicated right total knee replacement POD # 1 Diabetes mellitus Hypertension Hyperlipidemia Obstructive sleep apnea maintained on CPAP Diagonsis/Assessment & Plan Patient appears to not remember me seeing him yesterday but took off his CPAP to talk to me today Rales or not moving and declines any additional medications Hyponatremia of 131 resulted from taking the hydrochlorothiazide that I told him not to yesterday and mild dehydration noted from diuretic of creatinine elevation Set for discharge tomorrow AFVSS, pleasant, O x 3 but subtle slow recall RRR, CTAB No edema Laboratory Tests 11/30/16 06:03 Assessment: Status post uncomplicated right total knee replacement POD # 2 Diabetes mellitus Hypertension Hyperlipidemia Obstructive sleep apnea maintained on CPAP Hyponatremia due to HCTZ taken yesterday before I told him to hold it since he took his home meds that his brought Mild elevated creatinine due to diuretic Post op constipation Plan: Restart home meds Hold Hydrochlorothiazide due to low BP and propensity for hyponatremia DC in am MARILYN DOWD DO Nov 30, 2016 11:21
[2016-11-30 12:00] VITALS: BP 115/55
--- NOTE | 2016-11-30 14:23 | Physical Therapy Daily Note ---
PT Daily Note-Current Subjective Patient c/o fatigue and 6/10 right knee pain. Nursing aware. Pain Numeric Pain Scale: 6 Location: Right Location Body Site: Knee Pain Description: Acute Mental Status Patient Orientation: Normal For Age Transfers Functional [place] Measure 0=Not Assessed/NA 4=Minimal Assistance 1=Total Assistance 5=Supervision or Setup 2=Maximal Assistance 6=Modified [place] 3=Moderate Assistance 7=Complete IndependenceIRFPAI Quality Coding Scale 6 Independent with activity with or without an assistive device 5 Patient requires set up or clean up by helper. Patient completes activity by themselves 4 Supervision or touching assist (CGA). [place] provide cues , steadying assist 3 The helper provides less than half the effort to complete the activity 2 The helper provides more than half the effort to complete the activity 1 Dependent. The helper does all the effort to complete an activity 7 Patient refused to complete or attempt activity 9 The patient did not perform the activity before the current illness or injury 88 Not attempted due to Medical conditions or safety concerns Transfers (B, C, W/C) (FIM): 6 Scootin Rollin Supine to/from Sit: 6 Sit to/from Stand: 6 Weight Bearing Weight Bearing Restriction: Weight Bearing/Tolerated Location Restriction: R LE Gait Training Gait (FIM): 6 Distance (FIM): 3=150 ft Distance: 350' Gait Level of Assist: 6 Gait Assistive Device: FWW antalgic, functional Exercises Supine Ex: Ankle pumps, Quad Set, Heel Slides Supine Reps: 15 Seated Therapy Exercises: Long arc quads Seated Reps: 25 Assessment Patient improving with right knee ROM. Limited by pain and edema. Will dismiss to home tomorrow. PT Professional Bass Fisher Goals Professional Bass Fisher Goals PT Skilled Nursing Goals Time Frame: Dec 05, 2016 Transfers (B,C,W/C) (FIM): 5 Gait (FIM): 5 Distance: 150' Gait Level of Assist: 5 Gait Assistive Device: FWW PT Plan Treatment/Plan Treatment Plan: Continue Plan of Care Treatment Plan: Bed Mobility, Concurrent Therapy, Education, Functional Activity Ho, Functional Strength, Gait, Therapeutic Exercise, Transfers Treatment Duration: Dec 05, 2016 Frequency: Twice Daily (6 days a week) Estimated Hrs Per Day: .25 hour per day (15-30' per day) Patient and/or Family Agrees t: Yes Time/GCodes Time In: 1300 Time Out: 1323 Total Billed Treatment Time: 23 Total Billed Treatment 1 visit EX 13 min GT 10 min NOEMI HUGGINS PT Nov 30, 2016 14:23
[2016-11-30 16:00] VITALS: BP 131/76
[2016-11-30] MEDS: TAMSULOSIN 0.4MG PO SCH (18:14)
[2016-11-30 20:43] VITALS: BP 127/60
[2016-11-30] MEDS: FENOFIBRIC 135 MG PO SCH (21:26)
[2016-11-30] MEDS: VYTORIN PO SCH (21:26)
[2016-11-30] MEDS: IRBESARTAN 150 MG (AVAPRO) TAB PO SCH (21:26)
[2016-11-30] MEDS: NIACIN ER (NIASPAN) 500 MG TAB PO SCH (21:26)
[2016-12-01 00:36] VITALS: BP 137/61
[2016-12-01] MEDS: oxyCODONE/APAP 5/325MG (PERCOCET 5) TABLET PO PRN ×4 (01:37→07:58)
[2016-12-01 03:24] VITALS: BP 117/70
[2016-12-01] MEDS: LANSOPRAZOLE 30 MG PO SCH (06:29)
[2016-12-01] MEDS: metFORMIN 500 MG (GLUCOPHAGE) TAB PO SCH (06:29)
[2016-12-01] MEDS: OMEGA 3 (FISH OIL) 1000 MG CAP PO SCH (06:29)
[2016-12-01] MEDS: MULTIVIT W/MINERALS TAB (THERAGRAN M) PO SCH (06:29)
[2016-12-01] MEDS: ENOXAPARIN 30 MG/0.3 ML (LOVENOX) SYR SC SCH (07:59)
[2016-12-01 08:00] VITALS: BP 117/56
[2016-12-01] MEDS: LIRAGLUTIDE SQ SCH (08:00)
[2016-12-01] MEDS: ATENOLOL 100 MG PO SCH (08:01)
--- NOTE | 2016-12-01 08:42 | Progress Note-Standard ---
Standard Progress Note Progress Notes/Assess & Plan Date Seen by Provider: Dec 01, 2016 Time Seen by Provider: 08:41 Progress/Assessment & Plan Post op check No complaints radiographs--HW well positioned. No fractures RLE-- 2 plus DP pulse with brisk cap refill. Intact sensation throughout. Intact DF and PF of toes and ankle s/p RTKA doing well Mobilize as able Final Diagnosis NO complaints Vital Signs Date Time Temp Pulse Resp B/P (MAP) Pulse Ox O2 Delivery O2 Flow Rate FiO2 12/01/16 03:24 98.8 93 18 117/70 95 Nasal Cannula 1.00 12/01/16 00:36 98.7 97 19 137/61 96 Nasal Cannula 1.00 11/30/16 23:05 Nasal Cannula 1.00 11/30/16 20:43 98.9 93 21 127/60 95 Nasal Cannula 1.00 11/30/16 16:00 97.3 83 20 131/76 96 Nasal Cannula 1.00 11/30/16 12:00 96.2 84 16 115/55 96 Nasal Cannula 1.00 Laboratory Tests Test 12/01/16 05:25 Range/Units Hemoglobin 9.1 L 13.3-17.7 G/DL Hematocrit 27 L 40-54 % RLE--dressing intact. No calf tenderness. pos SLR. flexion to 90 s/p RTKA doing well DC home YUDELKA URRUTIA MD Dec 01, 2016 08:42
--- NOTE | 2016-12-01 08:50 | Physical Therapy Daily Note ---
PT Daily Note-Current Subjective States that he is doing well and ready to go home. Transfers Functional [place] Measure 0=Not Assessed/NA 4=Minimal Assistance 1=Total Assistance 5=Supervision or Setup 2=Maximal Assistance 6=Modified [place] 3=Moderate Assistance 7=Complete IndependenceIRFPAI Quality Coding Scale 6 Independent with activity with or without an assistive device 5 Patient requires set up or clean up by helper. Patient completes activity by themselves 4 Supervision or touching assist (CGA). [place] provide cues , steadying assist 3 The helper provides less than half the effort to complete the activity 2 The helper provides more than half the effort to complete the activity 1 Dependent. The helper does all the effort to complete an activity 7 Patient refused to complete or attempt activity 9 The patient did not perform the activity before the current illness or injury 88 Not attempted due to Medical conditions or safety concerns Transfers (B, C, W/C) (FIM): 6 Scootin Rollin Supine to/from Sit: 6 Sit to/from Stand: 6 Gait Training Gait (FIM): 6 Distance (FIM): 3=150 ft Distance: 300 feet Gait Level of Assist: 6 Gait Assistive Device: FWW Exercises Supine Ex: Ankle pumps, Quad Set Supine Reps: 20 Seated Therapy Exercises: Long arc quads Seated Reps: 20 Assessment Current Status: Excellent Progress Patient is doing well. PT Senior Care Goals Senior Care Goals PT Senior Care Goals Time Frame: Dec 05, 2016 Transfers (B,C,W/C) (FIM): 5 Gait (FIM): 5 Distance: 150' Gait Level of Assist: 5 Gait Assistive Device: FWW PT Plan Treatment/Plan Treatment Plan: Continue Plan of Care Treatment Plan: Bed Mobility, Concurrent Therapy, Education, Functional Activity Ho, Functional Strength, Gait, Therapeutic Exercise, Transfers Treatment Duration: Dec 05, 2016 Frequency: Twice Daily (6 days a week) Estimated Hrs Per Day: .25 hour per day (15-30' per day) Patient and/or Family Agrees t: Yes Time/GCodes Time In: 819 Time Out: 0845 Total Billed Treatment Time: 25 Total Billed Treatment 1, GT x 15, EX x 10 EDIHT THORPE PT Dec 01, 2016 08:50
[2016-12-01] MEDS: SENNA W/DOCUSATE (SENOKOT S) TABLET PO SCH (09:59)
[2016-12-01] MEDS: ASPIRIN E.C. 81 MG (ECOTRIN) TAB PO SCH (09:59)
--- NOTE | 2016-12-01 11:41 | Progress Note-Hospitalist ---
Progress Note HPI/CC on Admission CC: Medical management following uncomplicated right total knee replacement POD # 1 HPI: This is a [address] 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 Pt states that he already took his home meds by himself today Pt confirms PCP as Dr. 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 Pt states he recently took his pain meds Pt confirmed working with PT Physical exam stable Pt denies having BMs but is urinating regularly Pt wondered why we needed to take labs again tomorrow Scribed by Agnieszka Champagne under the direct supervision of Dr. Dowd. Progress Notes/Assess & Plan Date Seen 12/01/16 Time Seen by Provider: 10:45 Admission Dx/Process Assessment: Status post uncomplicated right total knee replacement POD # 1 Diabetes mellitus Hypertension Hyperlipidemia Obstructive sleep apnea maintained on CPAP Diagonsis/Assessment & Plan Pt being DC today no BM but has meds at home to use AFVSS, pleasant, O x 3 but subtle slow recall RRR, CTAB No edema Assessment: Status post uncomplicated right total knee replacement POD # 3 Diabetes mellitus Hypertension Hyperlipidemia Obstructive sleep apnea maintained on CPAP Hyponatremia due to HCTZ taken yesterday before I told him to hold it since he took his home meds that his brought Mild elevated creatinine due to diuretic Post op constipation Plan: DC home MARILYN DOWD DO Dec 01, 2016 11:41
--- NOTE | 2016-12-02 10:33 | DISCHARGE SUMMARY ---
DATE OF SERVICE: 12/01/2016 DIAGNOSES: 1. Right knee primary osteoarthritis. 2. Diabetes mellitus. 3. Reflux. 4. Hypertension. 5. Osteoarthritis. 6. Sleep apnea. 7. Hypercholesterolemia. PROCEDURE: 1. Right total knee arthroplasty. SUMMARY: The patient is a 71-year-old gentleman who underwent a right total knee arthroplasty the day of admission. Postoperatively, he did well. At the time of discharge, his wound is clean and dry. He had no calf tenderness and negative Chloe's sign. He could perform straight leg raise and had active flexion to 90 degrees. He was tolerating his diet well and tolerating pain with oral pain medication. CONDITION AT DISCHARGE: Good. DISCHARGE DIET: Diabetic. FOLLOW UP: In 3 weeks. ACTIVITY: Weightbear as tolerated with walker. Home physical therapy has been arranged. Job ID: [id number] DocumentID: [id number] Dictated Date: 12/01/2016 08:41:19 Special Education Professor Date: 12/02/2016 10:32:36 Dictated By: YUDELKA URRUTIA MD
== END 2016-12-01 10:30 | disposition home or self-care (01) | DRG 470 ==
LOC: 4TH 05:59 → SURG 06:00 → 4TH 10:20
PROVIDERS: ADMIT Orthopaedic Surgery; ATTEND Orthopaedic Surgery
PROC: 0SRC0J9 Replacement of Right Knee Joint with Synthetic Substitute, Cemented, Open Approach (ICD-10-PCS; principal; 2016-11-29)
DX: M17.11 Unilateral primary osteoarthritis, right knee (principal); E11.9 Type 2 diabetes mellitus without complications; I12.9 Hypertensive chronic kidney disease with stage 1 through stage 4 chronic kidney disease, or unspecified chronic kidney disease; N18.3 Chronic kidney disease, stage 3 (moderate); G47.33 Obstructive sleep apnea (adult) (pediatric); E78.00 Pure hypercholesterolemia, unspecified; K21.9 Gastro-esophageal reflux disease without esophagitis; E66.9 Obesity, unspecified; E87.1 Hypo-osmolality and hyponatremia; E86.0 Dehydration; R35.0 Frequency of micturition; K59.09 Other constipation; Z87.891 Personal history of nicotine dependence; Z79.84 Long term (current) use of oral hypoglycemic drugs; Z96.652 Presence of left artificial knee joint; Z68.37 Body mass index [BMI] 37.0-37.9, adult; T50.2X5A Adverse effect of carbonic-anhydrase inhibitors, benzothiadiazides and other diuretics, initial encounter
CPT/HCPCS: 36415; 73560; 80053; 82962; 85014; 85018; 85025; 94664

== ENCOUNTER 2017-08-08 05:56 | Outpatient (CLI) | payer MEDICARE ==
[~2017-08-08] VITALS: Ht 167.6 cm; Wt 105.7 kg
[~2017-08-08 05:56] MED LIST changes: +OXYC-197 PO
== END 2017-08-08 13:33 ==
LOC: PREOP 05:56
PROVIDERS: ATTEND Surgery
DX: Z01.818 Encounter for other preprocedural examination (principal); R19.5 Other fecal abnormalities

== ENCOUNTER 2017-08-13 08:22 | Day surgery (SDC) | payer MEDICARE ==
[~2017-08-13] VITALS: Ht 167.6 cm; Wt 105.7 kg
[2017-08-13 08:25] VITALS: BP 127/74
[2017-08-13] MEDS ORDERED: ceFAZolin 2 GM IV Premixed 50 ML ONE (08:34)
[2017-08-13] MEDS ORDERED: LACTATED RINGERS 1,000 ML IV ONE (08:37)
[2017-08-13] MEDS ORDERED: proPOfol 200 MG/20 ML (DIPRIVAN) VIAL IV ONE (08:44)
[2017-08-13] MEDS ORDERED: PROPOFOL INJECTION 50 ML IV ONE (08:44)
[2017-08-13] MEDS ORDERED: CATHETER FLUSH 10 ML SYR IV PRN (08:45)
[2017-08-13] MEDS ORDERED: ceFAZolin 2 GM/50 ML PRE-MIX IVPB IV ONE (08:45)
[2017-08-13] MEDS ORDERED: LACTATED RINGERS 1,000 ML IV PRN (08:45)
--- NOTE | 2017-08-13 09:34 | Progress Note-Pre Operative ---
Pre-Operative Progress Note H&P Reviewed The H&P was reviewed, patient examined and no changes noted. Date Seen by Provider: August 13, 2017 Time Seen by Provider: 09:33 Date H&P Reviewed: August 13, 2017 Time H&P Reviewed: 09:33 Pre-Operative Diagnosis: occult + stool, gerd, dark stools PAVEL STONE DO August 13, 2017 09:34
--- NOTE | 2017-08-13 10:19 | Progress Note-Post Operative ---
Post-Operative Progess Note Surgeon (s)/Resource Conservationist (s) Surgeon PAVEL STONE DO Resource Conservationist: na Pre-Operative Diagnosis occult + stool, gerd, dark stools Post-Operative Diagnosis slight gastritis, rectal polyp, hemorrhoids, diverticulosis Procedure & Operative Findings Date of Procedure 08/13/17 Procedure Performed/Findings egd c biopsy antrum and colonoscopy c hot biopsy polypectomy of rectal polyp Anesthesia Type per financial aid counselor Estimated Blood Loss Estimated blood loss (mL): none Specimens/Packing Specimens Removed antrum, rectal polyp PAVEL STONE DO August 13, 2017 10:19
--- NOTE | 2017-08-13 10:21 | Discharge Inst-Simple/Standard ---
Discharge Inst-Standard Patient Instructions/Follow Up Plan of Care/Instructions/FU: 2 weeks [place] Activity as Tolerated: Yes Discharge Diet: Regular Diet (high fiber) PAVEL STONE DO August 13, 2017 10:21
[2017-08-13] MEDS ORDERED: HURRICAINE EXT TUBE (BENZOCAINE) ONE (10:28)
[2017-08-13] MEDS ORDERED: HURRICAINE EXT TUBE (BENZOCAINE) XX PRN (10:30)
[2017-08-13 10:45] VITALS: BP 106/66
[2017-08-13 11:20] VITALS: BP 125/63
[2017-08-13 11:30] VITALS: BP 125/63
--- NOTE | 2017-08-13 13:53 | Anesthesia-General Post-Op ---
MAC Patient Condition Mental Status/LOC: Same as Preop Cardiovascular: Satisfactory Nausea/Vomiting: Absent Respiratory: Satisfactory Pain: Controlled Complications: Absent Post Op Complications Complications None Follow Up Care/Instructions Patient Instructions None needed. Anesthesiology Discharge Order Discharge Order Patient is doing well, no complaints, stable vital signs, no apparent adverse anesthesia problems. No complications reported per nursing. CHANDRIKA PINO CRNA August 13, 2017 13:53
--- NOTE | 2017-08-13 16:59 | OPERATIVE REPORT ---
DATE OF SERVICE: 08/13/2017 PREOPERATIVE DIAGNOSES: Occult positive stool, gastroesophageal reflux disease, dark stools. POSTOPERATIVE DIAGNOSES: Gastritis, rectal polyp, hemorrhoids, diverticulosis. PROCEDURE: EGD with biopsy of the antrum and colonoscopy with hot biopsy polypectomy of rectal polyp. SURGEON: Pavel Alvarado DO ANESTHESIA: Per BRIDGE INSTRUCTOR. ESTIMATED BLOOD LOSS: None. COMPLICATIONS: None. INDICATIONS: The patient is a 72-year-old male with recent dark stools. He also had GERD and with occult positive stools. The patient was explained the risks and benefits of procedure and wished to proceed with procedure. Consent was signed in the chart. DESCRIPTION OF PROCEDURE: The patient was taken to the endoscopy suite, placed in left lower recumbent position. Timeout was performed. Scope was inserted into mouth, down the esophagus, stomach and into the duodenum. There are no polyps, mass or ulcerations within the duodenum. Scope was slowly retracted back into the stomach where some slight erythematous changes present. Biopsy of the antrum was obtained. Scope was retroflexed noting no other pathology. There are no polyps, masses or ulcerations. Scope was returned to its normal position, slowly withdrawn to the distal esophagus, which had normal appearance. Scope was slowly retracted back until completely removed, noting no other pathology. Digital rectal exam was performed. Some slight hemorrhoidal disease. No polyps, masses or ulcerations. Scope was inserted into the rectum and advanced all the way to the cecum with minimal difficulty. The terminal ileum was intubated noting no other pathology. Scope was withdrawn back into the colon. The prep was adequate. The scope was then slowly retracted back. There were no polyps, masses or ulcerations within the cecum, ascending, transverse, descending colon. Within the sigmoid colon, there was some diverticulosis present. No polyps, masses or ulcerations were visualized. Scope was slowly retracted back into the rectum where a small polyp was present, which hot biopsy polypectomy was performed. Scope was also retroflexed noting the hemorrhoids. No other pathology noted. Scope was returned to its normal position, slowly withdrawn until completely removed. The patient tolerated the procedure well without any complications, taken to recovery room in stable condition. RECOMMENDATIONS: The patient will follow up in the office in 2 weeks to discuss pathology results. We will see how he is doing at that time. A repeat colonoscopy in 5 years. If he has any problems prior to that should be reevaluated at that time. Job ID: [id number] DocumentID: [id number] Dictated Date: 08/13/2017 10:24:49 Water Leak Repairer Date: 08/13/2017 16:58:24 Dictated By: PAVEL ALVARADO DO
== END 2017-08-13 11:30 | disposition home or self-care (01) ==
LOC: ENDO 08:22
PROVIDERS: ATTEND Surgery
DX: D12.8 Benign neoplasm of rectum (principal); K57.30 Diverticulosis of large intestine without perforation or abscess without bleeding; K29.70 Gastritis, unspecified, without bleeding; K64.9 Unspecified hemorrhoids; R19.5 Other fecal abnormalities; E11.9 Type 2 diabetes mellitus without complications; I10 Essential (primary) hypertension; Z79.84 Long term (current) use of oral hypoglycemic drugs; Z79.899 Other long term (current) drug therapy
CPT/HCPCS: 82962; 88305

== ENCOUNTER → 2019-02-03 | Outpatient (CLI) | payer MEDICARE ==
[~2019-02-03] MED LIST changes: -OXYC-197 PO; +OXYC1TAB87 PO
--- NOTE | 2019-02-03 11:56 | Diagnostic Imaging Report ---
PROCEDURE: US Renal Bilateral. TECHNIQUE: Multiple real-time grayscale images were obtained over the kidneys in various projections bilaterally. INDICATION: Chronic kidney disease stage III. FINDINGS: Right kidney measures 11.1 x 6.5 x 5.5 cm. Left kidney measures 10.5 x 5.2 x 4.6 cm. Both kidneys demonstrate normal renal cortical thickness and echogenicity. There is no hydronephrosis, calculi or mass. Prevoid bladder volume is 96 cc. Postvoid bladder volume is 7 cc. Neither ureteral jet was visualized. IMPRESSION: Unremarkable sonographic appearance of both kidneys. Dictated by: Dictated on workstation # [id number]
== END ==
LOC: RAD 09:24
PROVIDERS: ATTEND Nurse Practitioner
DX: E11.22 Type 2 diabetes mellitus with diabetic chronic kidney disease (principal); I12.9 Hypertensive chronic kidney disease with stage 1 through stage 4 chronic kidney disease, or unspecified chronic kidney disease; N18.3 Chronic kidney disease, stage 3 (moderate); E11.21 Type 2 diabetes mellitus with diabetic nephropathy; E78.5 Hyperlipidemia, unspecified; E66.3 Overweight; M19.90 Unspecified osteoarthritis, unspecified site
CPT/HCPCS: 76770

== ENCOUNTER → 2020-02-15 | Outpatient (CLI) | payer MEDICARE ==
[~2020-02-15] MED LIST changes: +IRBE150T23 PO; -IRBE150T26 PO; -TAMS0.4C98 PO; +TMSL.4C PO
--- NOTE | 2020-02-16 08:00 | NUR ---
Notified patient of COVID Positive Test.
== END ==
LOC: LABNPT 08:46
PROVIDERS: ATTEND Internal Medicine
DX: U07.1 COVID-19 (principal)
CPT/HCPCS: 87635

== ENCOUNTER 2020-02-19 22:48 | Inpatient (IN) | payer MEDICARE ==
[~2020-02-19] VITALS: Ht 167 cm; Wt 102.8 kg
--- NOTE | 2020-02-19 23:04 | ED General ---
General Stated Complaint: COVID POSITIVE/FEVER/WEAKNESS Source of Information: Patient History of Present Illness Date Seen by Provider: Feb 19, 2020 Time Seen by Provider: 23:00 Initial Comments PT ARRIVES VIA POV FROM HOME--PT DROVE HIMSELF HERE PT HAD + COVID-19 TEST ON 02/15/20-DONE OUTPATIENT STATES HE BEGAN GETTING SICK LAST SATURDAY/SATURDAY PT C/O FEVER UP TO 106--TOOK TYLENOL AT 1900 TONIGHT, TEMP IS 102 ON ARRIVAL HERE DENIES SHORTNESS OF BREATH, BUT PT APPEARS TO BE MILDLY DYSPNEIC ON ARRIVAL C/O GENERALIZED WEAKNESS C/O NON-PRODUCTIVE COUGH C/O BODY ACHES C/O NAUSEA, HAS VOMITED A COUPLE OF TIMES TODAY. HAS HAD DIARRHEA--2 EPISODES TODAY NO LOSS OF TASTE OR SMELL NO CHEST PAIN OR PAIN WITH BREATHING. HAD A TELEPHONE VISIT ON Saturday02/15/20 AND OUTPATIENT COVID TESTING WAS DONE, WHICH WAS POSITIVE. PT LIVES AT HOME, BY HIMSELF DAUGHTER AND GRANDCHILDREN VISIT FREQUENTLY PT HAS NON-INSULIN DEPENDENT DIABETES, AND HTN DENIES ANY HISTORY OF HEART OR LUNG PROBLEMS PCP: DR. COHEN Allergies and Home Medications Allergies Coded Allergies: No Known Drug Allergies (Verified , 08/13/17) Home Medications Aspirin 81 Mg Tablet.dr, 81 MG PO HS, (Reported) Atenolol 100 Mg Tablet, 100 MG PO BID, (Reported) Ezetimibe/Simvastatin 1 Each Tablet, 1 TAB PO DAILY, (Reported) Fenofibric Acid (Choline) 135 Mg Capsule.dr, 135 MG PO DAILY, (Reported) Gluc Jessica/Chondro Jessica A/Vit C/Mn 1 Each Tablet, 1 TAB PO BID, (Reported) Hydrochlorothiazide 25 Mg Tablet, 25 MG PO DAILY, (Reported) Irbesartan 150 Mg Tablet, 150 MG PO HS, (Reported) Lansoprazole 30 Mg Capsule.dr, 30 MG PO DAILY, (Reported) Liraglutide 0.6 Mg/0.1 Ml Pen.injctr, 1.2 MG SQ DAILY, (Reported) Metformin Hcl 500 Mg Tablet, 500 MG PO BID WITH MEALS, (Reported) Mu-Vits-Min Th/Lycopene/Lutein 1 Each Tablet, 1 TAB PO HS, (Reported) Niacin 500 Mg Tablet.sa, 2,000 MG PO HS, (Reported) TAKE 4 (500MG) TABS [place]-3 Fatty Acids/Fish Oil 1 Each Capsule, 2,400 MG PO BID, (Reported) TAKES 2 (1,200 MG) CAPSULES Tamsulosin HCl 0.4 Mg Cap, 0.4 MG PO DAILY, (Reported) Vitamin B Complex 1 Each Capsule, 1 EACH PO DAILY, (Reported) Patient Home Medication List Home Medication List Reviewed: Yes Review of Systems Review of Systems Constitutional: see HPI, fever, malaise, weakness EENTM: no symptoms reported Respiratory: see HPI, cough, other (PT DENIES FEELING SHORT OF BREATH, BUT IS MILDLY DYSPNEIC ON ARRIVAL, AND HAS SOME ORTHOPNEA ON ARRIVAL. ) Cardiovascular: No chest pain, No edema, No palpitations, No syncope Gastrointestinal: see HPI; No abdominal pain; diarrhea, loss of appetite, nausea, vomiting Genitourinary: no symptoms reported Musculoskeletal: see HPI (BODY ACHES) Skin: no symptoms reported Psychiatric/Neurological: Other (PT DENIES ANY SYMPTOMS, BUT DAUGHTER REPORTED TO RN THAT HE SEEMED A LITTLE SLOW OR CONFUSED WHEN SHE TALKED TO HIM ON THE PHONE TONIGHT. ) Hematologic/Lymphatic: No Symptoms Reported Immunological/Allergic: no symptoms reported Past Yqmfaaf-Bawpxe-Acpyov Hx Past Med/Social Hx: Reviewed and Corrections made Patient Social History Smoking Status: Former Smoker Former Smoker, Quit: Apr 02, 1994 Recent Foreign Travel: No Contact w/Someone Who Travel: No Recent Hopitalizations: No Immunizations Up To Date Tetanus Booster (TDap): Unknown PED Vaccines UTD: No Date of Pneumonia Vaccine: Feb 03, 2015 Seasonal Allergies Seasonal Allergies: No Past Medical History Surgeries: Yes (ING HERNIA;BILAT KNEE SCOPES & TKR;GOITER;LIPOMAS;SKIN LES IONS;EGD/C-SCOPE ) Abdominal, Joint Replacement, Orthopedic Respiratory: Yes (USES CPAP) Sleep Apnea Currently Using CPAP: Yes Currently Using BIPAP: No Cardiac: Yes High Cholesterol, Hypertension Neurological: No Reproductive Disorders: No Sexually Transmitted Disease: No HIV/AIDS: No Genitourinary: Yes (URINARY FREQUENCY; RENAL INSUFFICIENCY) Gastrointestinal: Yes (RECTAL POLYPECTOMY; DIVERTICULAR DZ NOTED ON COLON OSCOPY;GASTRITIS) Gastroesophageal Reflux, Diverticulosis, Hemorrhoids, Polyps Musculoskeletal: Yes (OSTEOARTHRITIS;BILAT KNEE SCOPES AND BILAT TKR) Degenerate Disk Disease, Arthritis, Chronic Back Pain Endocrine: Yes (GOITER REMOVED) Diabetes, Non-Insulin dep HEENT: Yes (GLASSES, BEGINING OF CATARACTS) Cataract Loss of Vision: Bilateral Hearing Impairment: Denies Cancer: Yes (PRE-SKIN CANCER REMOVAL) Skin Did You Recieve Any Treatments: Yes What Type of Treatment Did You: Surgical Intervention Psychosocial: No Integumentary: Yes (PRECANCEROUS SKIN LESIONS; LIPOMAS) Blood Disorders: No Adverse Reaction/Blood Tranf: No Family Medical History Alcoholism 19 FATHER G8 BROTHER Drug abuse G8 BROTHER No Family History of: AIDS Alzheimer's disease Arthritis Asthma Cancer of mouth Cardiovascular disease Colon cancer Completed stroke Dementia Diabetes mellitus Hypertension Kidney disease Myocardial infarction Parkinson's disease Prostate cancer Psychosocial problem Respiratory disorder Seizure disorder Severe allergy Thyroid disease Tuberculosis Physical Exam Vital Signs Vital Signs - First Documented 02/19/20 02/20/20 22:55 00:00 Temp 38.9 Pulse 146 Resp 32 B/P (MAP) 143/99 (114) Pulse Ox 91 O2 Delivery Room Air O2 Flow Rate 3.00 FiO2 98 Capillary Refill : Height, Weight, BMI Height: 5'6.00" Weight: 233lbs. 0.0oz. 105.509191ps; 37.6 BMI Method:Stated General Appearance: WD/WN, Mild Distress, Obese, Other (MILDLY LETHARGIC. SLIGHTLY SLOW MENTATION. FACE FLUSHED AND SKIN VERY WARM, ) HEENT: PERRL/EOMI Neck: Normal Inspection Respiratory: Accessory Muscle Use, Rales, Rhonci, Other (MILDLY DYSPNEIC ; BIBASILAR RALES/RHONCHI) Cardiovascular: No JVD, No Murmur, Irregularly Irregular, Tachycardia Gastrointestinal: Non Tender, Soft Extremity: Normal Capillary Refill, Normal Range of Motion, Non Tender, Pedal Edema (TRACE EDEMA BILATERALLY) Neurologic/Psychiatric: Alert, Oriented x3, No Motor/Sensory Deficits, registry np II- XII Norm as Tested Skin: Warm/Dry (FACE FLUSHED; VERY WARM) Focused Exam Sepsis Stage: Sepsis Possible Source: Pulmonary Lactate Level 02/19/20 23:10: Lactic Acid Level 1.16 Time of Focused Exam: 23:30 Respiratory: Other (MILDLY DYSPNEIC, RALES/RHONCHI IN BASES) Cardiovascular: Irregularly Irregular, Tachycardia Skin: normal color Lactic Acid Level Laboratory Tests Test 02/19/20 23:10 Lactic Acid Level 1.16 MMOL/L (0.50-2.00) Within 3hrs of presentation: Admin fluids, Admin ABX, Blood cultures prior to ABX's, Focus exam, Lactate level Progress/Results/Core Measures Suspected Sepsis SIRS Temperature: Pulse: Respiratory Rate: Laboratory Tests 02/19/20 23:10: White Blood Count 7.9 Blood Pressure / Mean: 02/19/20 23:10: Lactic Acid Level 1.16 Laboratory Tests 02/19/20 23:10: Creatinine 2.99H, INR Comment 1.2, Platelet Count 205, Total Bilirubin 0.5 Results/Orders Lab Results Laboratory Tests Test 02/19/20 01:20 02/19/20 23:10 02/19/20 23:25 Range/Units Urine Color YELLOW Urine Clarity SL CLOUDY Urine pH 5.0 5-9 Urine Specific [place] 1.025 H 1.016-1.022 Urine Protein 2+ H NEGATIVE Urine Glucose (UA) NEGATIVE NEGATIVE Urine Ketones TRACE H NEGATIVE Urine Nitrite NEGATIVE NEGATIVE Urine Bilirubin NEGATIVE NEGATIVE Urine Urobilinogen 0.2 < = 1.0 MG/DL Urine Leukocyte Esterase NEGATIVE NEGATIVE Urine RBC (Auto) NEGATIVE NEGATIVE Urine RBC NONE /HPF Urine WBC 0-2 /HPF Urine Squamous Epithelial Cells 0-2 /HPF Urine Crystals PRESENT H /LPF Urine Amorphous Sediment MOD ROLANDO URATES H /LPF Urine Bacteria FEW H /HPF Urine Casts NONE /LPF Urine Mucus NEGATIVE /LPF Urine Culture Indicated YES White Blood Count 7.9 4.3-11.0 10^3/uL Red Blood Count 4.38 4.30-5.52 10^6/uL Hemoglobin 13.2 L 13.3-17.7 g/dL Hematocrit 39 L 40-54 % Mean Corpuscular Volume 89 80-99 fL Mean Corpuscular Hemoglobin 30 25-34 pg Mean Corpuscular Hemoglobin Concent 34 32-36 g/dL Red Cell Distribution Width 13.5 10.0-14.5 % Platelet Count 205 130-400 10^3/uL Mean Platelet Volume 10.9 9.0-12.2 fL Immature Granulocyte % (Auto) 1 % Neutrophils (%) (Auto) 85 H 42-75 % Lymphocytes (%) (Auto) 10 L 12-44 % Monocytes (%) (Auto) 5 0-12 % Eosinophils (%) (Auto) 0 0-10 % Basophils (%) (Auto) 0 0-10 % Neutrophils # (Auto) 6.7 1.8-7.8 10^3/uL Lymphocytes # (Auto) 0.8 L 1.0-4.0 10^3/uL Monocytes # (Auto) 0.4 0.0-1.0 10^3/uL Eosinophils # (Auto) 0.0 0.0-0.3 10^3/uL Basophils # (Auto) 0.0 0.0-0.1 10^3/uL Immature Granulocyte # (Auto) 0.1 0.0-0.1 10^3/uL Erythrocyte Sedimentation Rate 76 H 0-30 MM/HR Prothrombin Time 15.9 H 12.2-14.7 SEC INR Comment 1.2 0.8-1.4 Activated Partial Thromboplast Time 40 H 24-35 SEC D-Dimer 1.41 H 0.00-0.49 UG/ML Sodium Level 123 *L 135-145 MMOL/L Potassium Level 4.9 3.6-5.0 MMOL/L Chloride Level 91 L 98-107 MMOL/L Carbon Dioxide Level 15 L 21-32 MMOL/L Anion Gap 17 H 5-14 MMOL/L Blood Urea Nitrogen 47 H 7-18 MG/DL Creatinine 2.99 H 0.60-1.30 MG/DL Estimat Glomerular Filtration Rate 21 BUN/Creatinine Ratio 16 Glucose Level 125 H 70-105 MG/DL Lactic Acid Level 1.16 0.50-2.00 MMOL/L Calcium Level 8.2 L 8.5-10.1 MG/DL Corrected Calcium 8.4 L 8.5-10.1 MG/DL Magnesium Level 1.8 1.6-2.4 MG/DL Total Bilirubin 0.5 0.1-1.0 MG/DL Aspartate Amino Transf (AST/SGOT) 66 H 5-34 U/L Alanine Aminotransferase (ALT/SGPT) 40 0-55 U/L Alkaline Phosphatase 64 40-136 U/L Total Creatine Kinase 653 H 30-200 U/L Creatine Kinase MB 3.1 <6.6 NG/ML Myoglobin 708.9 H 10.0-92.0 NG/ML Troponin I < 0.028 <0.028 NG/ML C-Reactive Protein High Sensitivity 21.09 H 0.00-0.50 MG/DL B-Type Natriuretic Peptide 482.3 H <100.0 PG/ML Total Protein 7.3 6.4-8.2 GM/DL Albumin 3.8 3.2-4.5 GM/DL Procalcitonin 5.88 H <0.10 NG/ML Blood Gas Puncture Site RIGHT RADIAL Blood Gas Patient Temperature 39.3 Arterial Blood pH 7.33 *L 7.37-7.43 Arterial Blood Partial Pressure CO2 27 L 35-45 MMHG Arterial Blood Partial Pressure O2 118 H 79-93 MMHG Arterial Blood HCO3 14 *L 23-27 MMOL/L Arterial Blood Total CO2 14.3 L 21.0-31.0 MMOL/L Arterial Blood Oxygen Saturation 97 94-100 % Arterial Blood Base Excess -10.9 L -2.5-2.5 MMOL/L Jared Test UNKNOWN Blood Gas Ventilator Setting NO Blood Gas Inspired Oxygen 3 Micro Results Microbiology 02/19/20 Influenza Types A,B Antigen (CATY) - Final, Complete My Orders Orders - DEE DILLARD DO Ed Iv/Invasive Line Start (02/19/20:00) Ekg Tracing (02/19/20:) O2 (02/19/20:) Monitor-Rhythm Ecg Trace Only (02/19/20:00) BNP (02/19/20:00) Cbc With Automated Diff (02/19/20) Comprehensive Metabolic Panel (02/19/20:) Creatine Kinase (02/19/20:) Creatine Kinase Mb (02/19/20:00) Hs C Reactive Protein (02/19/20:00) Fibrin Degradation Products (02/19/20:) Lactic Acid Analyzer (02/19/20:) Magnesium (02/19/20:) Procalcitonin (Pct) (02/19/20:) Protime With Inr (02/19/20:) Partial Thromboplastin Time (02/19/20:) Ua Culture If Indicated (02/19/20:) Blood Culture (02/19/20:) Influenza A And B Antigens (02/19/20:) Erythrocyte Sedimentation Rate (02/19/20:00) Myoglobin Serum (02/19/20:) Troponin I (11/20/20 23:00) Chest 1 View, Ap/Pa Only (02/19/20 23:00) Acetaminophen Tablet (Tylenol Tablet) (02/19/20 23:15) Ibuprofen Tablet (Motrin Tablet) (02/19/20 23:15) Dexamethasone Injection (Decadron Injec (02/19/20 23:15) Ed Iv/Invasive Line Start (02/19/20 23:08) Ns Iv 1000 Ml (Sodium Chloride 0.9%) (02/19/20 23:08) Ns Iv 1000 Ml (Sodium Chloride 0.9%) (02/19/20 23:08) Enoxaparin Injection (Lovenox Injection) (02/19/20 23:15) Diltiazem Injection (Cardizem Injection) (02/19/20 23:15) Diltiazem Drip Pre-Mix (Cardizem Drip Pr (02/19/20 23:18) Diltiazem Drip Pre-Mix (Cardizem Drip Pr (02/19/20 23:45) Ceftriaxone For Iv Use (Rocephin For I (02/19/20 23:45) Azithromycin Injection (Zithromax Inject (02/19/20 23:45) Aspirin Chewable Tablet (Baby Aspirin Ch (02/19/20 23:45) Aspirin Chewable Tablet (Baby Aspirin Ch (02/19/20 23:41) Water (Sterile) For Injection (Sterile W (02/19/20 23:41) Ns (Ivpb) (Sodium Chloride 0.9%) (02/19/20 23:41) Ceftriaxone For Iv Use (Rocephin For I (02/19/20 23:41) Azithromycin Injection (Zithromax Inject (02/19/20 23:41) Arterial Blood Gas (02/19/20 23:25) Ed Iv/Invasive Line Start (02/19/20 23:59) Ns Iv 1000 Ml (Sodium Chloride 0.9%) (02/19/20 23:59) Amiodarone Injection (Cordarone Injectio (02/20/20 00:15) Amiodarone Injection (Cordarone Injectio (02/20/20 00:15) Albuterol/Ipratropium Inhaler (Combivent (02/20/20 09:00) Fluticasone/Salmeterol 115/21 (Advair Hf (02/20/20 08:00) Rt Request For Service (02/20/20 00:15) Urine Culture (02/19/20 01:20) Medications Given in ED Current Medications Medications Dose Ordered Sig/Celi Route Start Time Stop Time Status Last Admin Dose Admin Acetaminophen 1,000 mg ONCE ONCE PO 02/19/20 23:15 02/19/20 23:16 DC 02/19/20 23:16 1,000 MG Aspirin 324 mg ONCE ONCE PO 02/19/20 23:45 02/19/20 23:46 DC 02/19/20 23:49 324 MG Azithromycin 500 mg/Sodium Chloride 250 ml @ 250 mls/hr ONCE ONCE IV 02/19/20 23:45 02/20/20 00:44 DC 02/20/20 00:13 250 MLS/HR Ceftriaxone Sodium 1000 mg/ Sterile Water 10 ml @ 200 mls/hr ONCE ONCE IV 02/19/20 23:45 02/19/20 23:47 DC 02/19/20 23:50 200 MLS/HR Dexamethasone Sodium Phosphate 6 mg ONCE ONCE IV 02/19/20 23:15 02/19/20 23:16 DC 02/19/20 23:18 6 MG Diltiazem HCl 10 mg ONCE ONCE IVP 02/19/20 23:15 02/19/20 23:17 DC 02/19/20 23:22 10 MG Enoxaparin Sodium 100 mg ONCE ONCE SC 02/19/20 23:15 02/19/20 23:16 DC 02/19/20 23:36 100 MG Ibuprofen 800 mg ONCE ONCE PO 02/19/20 23:15 02/19/20 23:16 DC 02/19/20 23:16 800 MG Vital Signs/I&O 02/19/20 02/20/20 22:55 00:00 Temp 38.9 Pulse 146 Resp 32 B/P (MAP) 143/99 (114) Pulse Ox 91 O2 Delivery Room Air Nasal Cannula O2 Flow Rate 3.00 FiO2 98 Capillary Refill : Progress Note : Progress Note O2 SAT 90% ON ROOM AIR ON ARRIVAL, PLACED ON O2 AT 3L/NC AND O2 SATS UP TO 97% INITIAL HEART RATE 140-180, ATRIAL FIBRILLATION WITH RVR. GIVEN DECADRON GIVEN COMBIVENT AND ADVAIR INHALERS GIVEN LOVENOX AND ASPIRIN STARTED ON CARDIZEM--GIVEN BOLUS AND STARTED ON CARDIZEM DRIP AMIODARONE BOLUS AND DRIP GIVEN, PER DR. ROSEN'S ORDERS GIVEN ROCEPHIN AND ZITHROMAX TEMP 102.8 ON ARRIVAL--GIVEN TYLENOL AND MOTRIN--PT BEGAN TO SWEAT PROFUSELY AND TEMP DOWN TO NORMAL. HEART RATE DOWN, DID HAVE SOME HYPOTENSION WITH CARDIZEM, BUT GIVEN IV FLUIDS AND BP > 100 SYSTOLIC OTHERWISE UNEVENTFUL ER STAY. ECG Initial ECG Impression Date: Feb 19, 2020 Initial ECG Impression Time: 23:20 Initial ECG Rate: 163 Initial ECG Impression: Atrial Fibrillation w/RVR Initial ECG Comparisson: No Previous ECG Available Diagnostic Imaging Comments CXR--BILATERAL INFILTRATES, PENDING RADIOLOGIST REVIEW Reviewed: Reviewed by Me Critical Care Note Critical Care Total Time (minutes) 30 Departure Communication (Admissions) Family Conversation [id number]--SPOKE WITH PT'S DAUGHTER, AND UPDATED HER ON PT'S CONDITION. ADVISED OF NEED FOR QUARANTINE FOR HER ENTIRE HOUSEHOLD. 0001--SPOKE WITH DR. HORN, HOSPITALIST, ACCEPTS PT FOR ADMIT [id number]--SPOKE WITH DR. ROSEN, FORM DRAFTER. ORDERS NOTED TO ADD AMIODARONE BOLUS AND DRIP, IN ADDITION TO CARDIZEM DRIP [id number]--CALLED E-ICU AND REPORT GIVEN TO PHYSICIAN. Impression Primary Impression: Pneumonia due to COVID-19 virus Additional Impressions: Acute respiratory failure due to COVID-19 Acute renal failure superimposed on chronic kidney disease Hyponatremia NEW ONSET ATRIAL FIBRILLATION WITH RAPID VENTRICULAR RESPONSE Non-insulin dependent diabetes mellitus Sepsis Acidosis Disposition: ADMITTED INPATIENT Condition: Stable Admissions Decision to Admit Reason: Admit from ER (General) Decision to Admit/Date: Feb 20, 2020 Time/Decision to Admit Time: 00:01 Departure-Patient Inst. Referrals: ASIM COHEN MD (PCP/Family) Primary Care Physician DEE DILLARD DO Feb 19, 2020 23:04
[2020-02-19] MEDS ORDERED: NS IV 1000 ML 1,000 ML IV SCH ×2 (23:08→23:59)
[2020-02-19] MEDS ORDERED: NS IV 1000 ML 1,000 ML ONE (23:08)
[2020-02-19] MEDS ORDERED: ENOXAPARIN 100 MG/1 ML (LOVENOX) SYR SC ONE (23:15)
[2020-02-19] MEDS ORDERED: IBUPROFEN 800 MG (MOTRIN) TAB PO ONE (23:15)
[2020-02-19] MEDS ORDERED: ACETAMINOPHEN 500 MG TAB (TYLENOL) PO ONE (23:15)
[2020-02-19] MEDS ORDERED: dilTIAZem DRIP PRE-MIX 125 ML IV ONE (23:18)
[2020-02-19 23:23] LABS: BASOPHILS % (AUTO) 0 % (0-10); EOSINOPHILS % (AUTO) 0 % (0-10); HEMATOCRIT 39 % (40-54); HEMOGLOBIN 13.2 g/dL (13.3-17.7); LYMPHOCYTES # (AUTO) 0.8 10^3/uL (1.0-4.0); LYMPHOCYTES % (AUTO) 10 % (12-44); MEAN CORPUSCULAR HEMOGLOBIN 30 pg (25-34); MEAN CORPUSCULAR HGB CONC 34 g/dL (32-36); MEAN CORPUSCULAR VOLUME 89 fL (80-99); MEAN PLATELET VOLUME 10.9 fL (9.0-12.2); MONOCYTES # (AUTO) 0.4 10^3/uL (0.0-1.0); MONOCYTES % (AUTO) 5 % (0-12); NEUTROPHILS # (AUTO) 6.7 10^3/uL (1.8-7.8); NEUTROPHILS % (AUTO) 85 % (42-75); PLATELET COUNT 205 10^3/uL (130-400); WHITE BLOOD COUNT 7.9 10^3/uL (4.3-11.0)
--- NOTE | 2020-02-19 23:30 | NUR ---
Late entry: Pt here with shob, fever, and general malaise after being diagnosed with Covid on the . Pt reports he last had antipyretics at 1900hrs today. Pt is tachypneic and tachycardic with a-fib rvr noted. Pt denies hx of a-fib. Pt to bed and onto monitor; IV started and labs drawn. Pt to 02 at 3 lpm. ECG obtained.
[2020-02-19 23:37] LABS: ALBUMIN 3.8 GM/DL (3.2-4.5); CHLORIDE 91 MMOL/L (98-107); POTASSIUM 4.9 MMOL/L (3.6-5.0)
[2020-02-19 23:38] LABS: CALCIUM 8.2 MG/DL (8.5-10.1)
[2020-02-19 23:39] LABS: FIBRIN DEGRADATION PRODUCTS 1.41 UG/ML (0.00-0.49); INR 1.2 (0.8-1.4); PROTHROMBIN TIME PATIENT 15.9 SEC (12.2-14.7)
[2020-02-19 23:40] LABS: GLUCOSE 125 MG/DL (70-105); TOTAL PROTEIN 7.3 GM/DL (6.4-8.2)
[2020-02-19 23:41] LABS: CARBON DIOXIDE 15 MMOL/L (21-32)
[2020-02-19] MEDS ORDERED: cefTRIAXone 1,000 MG IV (ROCEPHIN) VIAL ONE (23:41)
[2020-02-19] MEDS ORDERED: NS (IVPB) 0 ML ONE (23:41)
[2020-02-19] MEDS ORDERED: WATER (STERILE) FOR INJECTION 0 ML ONE (23:41)
[2020-02-19] MEDS ORDERED: AZITHROMYCIN INJECTION 500 MG/5 ML VIAL ONE (23:41)
[2020-02-19] MEDS ORDERED: ASPIRIN 81 MG CHEW (CHILDREN'S ASA) ONE (23:41)
[2020-02-19 23:42] LABS: BILIRUBIN,TOTAL 0.5 MG/DL (0.1-1.0)
[2020-02-19 23:43] LABS: ALKALINE PHOSPHATASE 64 U/L (40-136); CREATININE SERUM 2.99 MG/DL (0.60-1.30); GFR ESTIMATED 21
[2020-02-19] MEDS ORDERED: dilTIAZem DRIP PRE-MIX 125 ML IV SCH (23:45)
[2020-02-19] MEDS ORDERED: ASPIRIN 81 MG CHEW (CHILDREN'S ASA) PO ONE (23:45)
[2020-02-19] MEDS ORDERED: cefTRIAXone FOR IV USE 1,000 MG in WATER (STERILE) FOR INJECTION 10 ML IV ONE (23:45)
[2020-02-19] MEDS ORDERED: AZITHROMYCIN INJECTION 500 MG in NS (IVPB) 250 ML IV ONE (23:45)
[2020-02-19 23:46] LABS: ALANINE AMINOTRANSFERASE 40 U/L (0-55); MAGNESIUM 1.8 MG/DL (1.6-2.4)
[2020-02-19 23:47] LABS: CREATINE KINASE 653 U/L (30-200)
[2020-02-19 23:49] LABS: ERYTHROCYTE SEDIMENTATION RATE 76 MM/HR (0-30)
[2020-02-19 23:54] LABS: BUN/CREATININE RATIO 16; CREATINE KINASE MB 3.1 NG/ML (<6.6)
[2020-02-19 23:56] LABS: SODIUM 123 MMOL/L (135-145)
[2020-02-19 23:58] LABS: ABG BASE EXCESS -10.9 MMOL/L (-2.5-2.5); ABG OXYGEN SATURATION 97 % (94-100); ABG PCO2 27 MMHG (35-45); ABG PO2 118 MMHG (79-93); ABG TCO2 14.3 MMOL/L (21.0-31.0)
[2020-02-20] LABS: ABG PH 7.33 (7.37-7.43); INSPIRED O2 3; PATIENT TEMP 39.3; VENTILATOR NO
--- NOTE | 2020-02-20 00:05 | NUR ---
Pt very diaphoretic; IV to left AC noted to have dc'd self due to sweating and loss of IV secure. 2 other IV's started.
[2020-02-20] MEDS ORDERED: AMIODARONE INJECTION 450 MG in D5W IV SOLUTION (EXCEL) 250 ML IV SCH (00:15)
[2020-02-20] MEDS ORDERED: AMIODARONE INJECTION 150 MG in D5W 100 ML IVPB 100 ML IV ONE (00:15)
[2020-02-20] MEDS ORDERED: ALBUTEROL/IPRATROP (COMBIVENT RESPIMAT) 4 GM INHALER ONE (00:53)
[2020-02-20] MEDS ORDERED: ADVAIR HFA 115/21 MCG INHALER 8 GM IH ONE ×2 (00:53→08:00)
[2020-02-20 01:27] LABS: BILIRUBIN,URINE NEGATIVE (NEGATIVE); CLARITY,URINE SL CLOUDY; COLOR,URINE YELLOW; GLUCOSE, URINE (UA) NEGATIVE (NEGATIVE); KETONES,URINE TRACE (NEGATIVE); LEUKOCYTE ESTERASE ,URINE NEGATIVE (NEGATIVE); NITRITE,URINE NEGATIVE (NEGATIVE); PROTEIN,URINE 2+ (NEGATIVE)
[2020-02-20 01:42] LABS: BACTERIA,URINE FEW /HPF; WBC,URINE 0-2 /HPF
[2020-02-20 01:43] LABS: SQUAMOUS EPITHELIAL CELL,UR 0-2 /HPF
[2020-02-20 01:44] LABS: AMORPHOUS SEDIMENT,UR MOD AMOR URATES /LPF
[2020-02-20] MEDS ORDERED: ACETAMINOPHEN 500 MG TAB (TYLENOL) PO PRN (02:15)
[2020-02-20] MEDS ORDERED: ONDANSETRON 4 MG/2 ML (SDV) Z0FRAN IVP PRN (02:15)
[2020-02-20] MEDS ORDERED: IBUPROFEN 800 MG (MOTRIN) TAB PO PRN (02:15)
[2020-02-20] MEDS: NS IV 1000 ML 1,000 ML IV SCH ×2 (02:43→10:00)
[2020-02-20] MEDS: POTASSIUM CL 10MEQ/50ML IVPB 50 ML IV SCH (05:25)
[2020-02-20] MEDS: MAGNESIUM 1 GM/100 ML IVPB 100 ML IV SCH (05:26)
[2020-02-20] MEDS: KCL 20 MEQ TAB (K-DUR) PO SCH (05:26)
[2020-02-20] MEDS: inSUlin ASPART (NovoLOG) 1 UNIT/0.01 ML (CHARGE PER UNIT) SC SCH ×4 (05:48→20:55)
[2020-02-20 06:21] LABS: BASOPHILS % (AUTO) 0 % (0-10); EOSINOPHILS % (AUTO) 0 % (0-10); HEMATOCRIT 35 % (40-54); HEMOGLOBIN 11.3 g/dL (13.3-17.7); LYMPHOCYTES # (AUTO) 0.6 10^3/uL (1.0-4.0); LYMPHOCYTES % (AUTO) 9 % (12-44); MEAN CORPUSCULAR HEMOGLOBIN 30 pg (25-34); MEAN CORPUSCULAR HGB CONC 32 g/dL (32-36); MEAN CORPUSCULAR VOLUME 91 fL (80-99); MEAN PLATELET VOLUME 11.3 fL (9.0-12.2); MONOCYTES # (AUTO) 0.2 10^3/uL (0.0-1.0); MONOCYTES % (AUTO) 3 % (0-12); NEUTROPHILS # (AUTO) 5.7 10^3/uL (1.8-7.8); NEUTROPHILS % (AUTO) 86 % (42-75); PLATELET COUNT 157 10^3/uL (130-400); WHITE BLOOD COUNT 6.6 10^3/uL (4.3-11.0)
[2020-02-20 06:38] LABS: ALBUMIN 3.3 GM/DL (3.2-4.5); CHLORIDE 96 MMOL/L (98-107); POTASSIUM 5.4 MMOL/L (3.6-5.0)
[2020-02-20 06:39] LABS: CALCIUM 7.2 MG/DL (8.5-10.1)
[2020-02-20 06:40] LABS: GLUCOSE 310 MG/DL (70-105)
[2020-02-20 06:41] LABS: TOTAL PROTEIN 6.2 GM/DL (6.4-8.2)
[2020-02-20 06:42] LABS: BILIRUBIN,TOTAL 0.4 MG/DL (0.1-1.0); CARBON DIOXIDE 10 MMOL/L (21-32)
[2020-02-20 06:44] LABS: ALKALINE PHOSPHATASE 61 U/L (40-136); CREATININE SERUM 3.02 MG/DL (0.60-1.30); GFR ESTIMATED 20
[2020-02-20 06:45] LABS: BUN/CREATININE RATIO 16
[2020-02-20 06:47] LABS: ALANINE AMINOTRANSFERASE 60 U/L (0-55)
[2020-02-20 06:48] LABS: SODIUM 121 MMOL/L (135-145)
[2020-02-20] MEDS: ASPIRIN E.C. 325 MG (ECOTRIN) TABLET PO SCH (08:38)
--- NOTE | 2020-02-20 08:41 | Diagnostic Imaging Report ---
EXAMINATION: Chest radiograph, portable AP view. DATE: 02/19/2020 11:43 PM hours. INDICATION: 74-year-old male, COVID positive. Fever and shortness of breath. COMPARISON: November 21, 2016. FINDINGS: There is multifocal bilateral lung consolidation which is an interval change since the comparison study. Heart size and mediastinal contours are grossly unchanged given differences in technique and lung volumes. There is no identified pneumothorax. There are technical limitations of the exam relating to patient body habitus and difficulties with exposure. There appear to be bilateral carotid vascular calcifications. IMPRESSION: 1. Multifocal nonspecific bilateral alveolar consolidation. This potentially can be seen with provided history of COVID 19 infection. Dictated by: Dictated on workstation # [id number]
[2020-02-20] MEDS ORDERED: ALBUTEROL/IPRATROP (COMBIVENT RESPIMAT) 4 GM INHALER IH ONE (09:00)
[2020-02-20] MEDS: AMIODARONE 450 MG/250 ML D5W EXCEL IV SCH ×4 (09:04→23:54)
[2020-02-20] MEDS ORDERED: NS IV 500 ML 500 ML IV SCH (09:27)
[2020-02-20] MEDS: SODIUM CHLORIDE 3% 500 ML IV SCH ×3 (09:34→17:04)
--- NOTE | 2020-02-20 09:37 | History & Physical-Hospitalist ---
History of Present Illness HPI/Chief Complaint Pt is a 74yoCM with a PMH HTN, HLD, NIDDMII who presented to the ER due to confusion. He was tested for COVID on 02/14 and was found to be positive. He became symptomatic roughly 1 week ago with fevers and malaise. He states that yesterday he became confused and his daughter advised him to seek evaluation in the ER. He was febrile on a arrival and reports it was up to 106 at home. He was in a-fib, which is new for him on arrival as well. He did not tolerate cardizem gtt in the ER and was switched to amiodarone gtt. He had nausea and poor oral intake. He had two episodes of diarrhea yesterday. Source: patient Exam Limitations: no limitations Date Seen 02/20/20 Time Seen by a Provider: 09:26 Attending Physician Tsering Mandel MD PCP Asim Cohen MD Referring Physician Date of Admission Feb 20, 2020 at 00:01 Home Medications & Allergies Home Medications Reviewed patient Home Medication Reconciliation performed by pharmacy medication reconciliations restoration technician and/or nursing. Patients Allergies have been reviewed. Allergies Allergies Coded Allergies No Known Drug Allergies (Verified08/13/17) Past Mdnswvj-Finyrn-Vysyrk Hx Past Med/Social Hx: Reviewed and Corrections made Patient Social History Marrital Status: Alcohol Use: Denies Use Recreational Drug Use: No Smoking Status: Former Smoker Former Smoker, Quit: Apr 02, 1994 Recent Foreign Travel: No Contact w/other who traveled: No Recent Hopitalizations: No Recent Infectious Disease Expo: Yes Immunizations Up To Date Tetanus Booster (TDap): Unknown Pediatric: No Date of Pneumonia Vaccine: Feb 03, 2015 Seasonal Allergies Seasonal Allergies: No Past Medical History Surgeries: Abdominal, Joint Replacement, Orthopedic Respiratory: Sleep Apnea Currently Using CPAP: Yes Currently Using BIPAP: No Cardiac: High Cholesterol, Hypertension Reproductive: No Sexually Transmitted Disease: No HIV/AIDS: No Gastrointestinal: Gastroesophageal Reflux, Diverticulosis, Hemorrhoids, Polyps Musculoskeletal: Degenerate Disk Disease, Arthritis, Chronic Back Pain Endocrine: Diabetes, Non-Insulin dep HEENT: Cataract Loss of Vision: Bilateral Hearing Impairment: Denies Cancer: Skin Did You Recieve Any Treatments: Yes What Type of Treatment Did You: Surgical Intervention History of Blood Disorders: No Adverse Reaction to Blood Boland: No Family History Alcoholism 19 FATHER G8 BROTHER Drug abuse G8 BROTHER No Family History of: AIDS Alzheimer's disease Arthritis Asthma Cancer of mouth Cardiovascular disease Colon cancer Completed stroke Dementia Diabetes mellitus Hypertension Kidney disease Myocardial infarction Parkinson's disease Prostate cancer Psychosocial problem Respiratory disorder Seizure disorder Severe allergy Thyroid disease Tuberculosis No Pertinent Family Hx Review of Systems Constitutional: fever, malaise, weakness EENTM: other (no loss of smell or taste) Respiratory: cough; No phlegm, No short of breath Cardiovascular: No edema, No Hx of Intervention, No palpitations Gastrointestinal: No abdominal pain; diarrhea, nausea Genitourinary: No dysuria Musculoskeletal: no symptoms reported, other (body aches) Skin: no symptoms reported Psychiatric/Neurological: No Symptoms Reported Physical Exam Physical Exam Vital Signs Vital Signs - First Documented 02/19/20 02/20/20 22:55 00:00 Temp 38.9 Pulse 146 Resp 32 B/P (MAP) 143/99 (114) Pulse Ox 91 O2 Delivery Room Air O2 Flow Rate 3.00 FiO2 98 Capillary Refill : Less Than 3 Seconds Height, Weight, BMI Height: 5'6.00" Weight: 233lbs. 0.0oz. 105.121679cz; 33.00 BMI Method:Stated General Appearance: No Apparent Distress, Chronically ill, Obese HEENT: PERRL/EOMI, Moist Mucous Membranes Neck: Normal Inspection, Supple Respiratory: No Respiratory Distress, Other (3lpm) Cardiovascular: No JVD, No Murmur, Irregularly Irregular Results Results/Procedures Labs Laboratory Tests 02/19/20 23:10 02/20/20 05:38 02/20/20 10:48 02/20/20 14:57 Patient resulted labs reviewed. Imaging: Reviewed Imaging Report [facility] [place] [place] NAME: [facility] REC#: [id number] PT STATUS: ADM IN : 1945 PHYSICIAN: DEE DILLARD DO ADMIT DATE: 02/20/20/ICU Draft Date of Exam:02/19/20 CHEST 1 VIEW, AP/PA ONLY EXAMINATION: Chest radiograph, portable AP view. DATE: 02/19/2020 11:43 PM hours. INDICATION: 74-year-old male, COVID positive. Fever and shortness of breath. COMPARISON: November 21, 2016. FINDINGS: There is multifocal bilateral lung consolidation which is an interval change since the comparison study. Heart size and mediastinal contours are grossly unchanged given differences in technique and lung volumes. There is no identified pneumothorax. There are technical limitations of the exam relating to patient body habitus and difficulties with exposure. There appear to be bilateral carotid vascular calcifications. IMPRESSION: 1. Multifocal nonspecific bilateral alveolar consolidation. This potentially can be seen with provided history of COVID 19 infection. Dictated on workstation # [id number] Dict: 02/20/20 0837 Trans: 02/20/20 0841 CVB [id number] Interpreted by: CEDRICK SUTTON MD Electronically signed by: Assessment/Plan Admission Diagnosis Acute Respiratory Failure from COVID19 Admission Status: Inpatient Order (span 2 midnights) Reason for Inpatient Admission: see below Assessment and Plan Acute Respiratory Failure from COVID19 Wean oxygen as able Remdesivir and Decadron started Discussed EUA status of convalescent plasma with patient who accepts risks Lovenox IS Supportive care New onset a-fib Cardiology consulted, appreciate recs Currently on amio gtt Lovenox Acute of CKD Stage 3 Hyponatremia Daughter reports known stage 3 CKD but unsure of baseline creatinine Continue IVF 3% saline started by [facility]- defer management to them HTN trend, BP well controlled NIDDMII SSI Anticipate higher blood sugars with steroids DVT ppx: Lovenox Diagnosis/Problems Diagnosis/Problems (1) Pneumonia due to COVID-19 virus Status: Acute (2) Acute respiratory failure due to COVID-19 Status: Acute (3) Acute renal failure superimposed on chronic kidney disease Status: Acute Qualifiers: Acute renal failure type: unspecified Chronic kidney disease stage: stage 3 (moderate) Qualified Codes: N17.9 - Acute kidney failure, unspecified; N18.3 - Chronic kidney disease, stage 3 (moderate) (4) Hyponatremia Status: Acute (5) Non-insulin dependent diabetes mellitus Status: Acute Clinical Quality Measures DVT/VTE Risk/Contraindication: Risk Factor Score Per Nursin RFS Level Per Nursing on Admit: 4+=Very High Copy Copies To 1: ASIM COHEN MD, KATELYN M MD Feb 20, 2020 09:37
[2020-02-20] MEDS ORDERED: ALLO100T PO ×2 (09:56)
[2020-02-20] MEDS ORDERED: LIRA0.6P3 SQ ×2 (09:56)
[2020-02-20 10:02] VITALS: BP 143/99
[2020-02-20] MEDS ORDERED: RT-ALBUTEROL INHALER HFA (VENTOLIN HFA) 18 GM IH PRN (10:15)
[2020-02-20] MEDS ORDERED: REMDESIVIR INJ 200 MG in NS (IVPB) 210 ML IV ONE (10:30)
[2020-02-20] MEDS: PANTOPRAZOLE 40 MG (PROTONIX) TAB PO SCH (10:51)
[2020-02-20 11:16] LABS: CALCIUM 7.4 MG/DL (8.5-10.1)
[2020-02-20 11:20] LABS: CREATININE SERUM 2.92 MG/DL (0.60-1.30)
--- NOTE | 2020-02-20 12:45 | Consultation - Surgery ---
History of Present Illness History of Present Illness Patient Consulted On(magalys/time) 02/20/20 12:34 Time Seen by Provider: 09:02 History of Present Illness Surgery asked to consult regarding need for central line. HPI per ED: PT ARRIVES VIA POV FROM HOME--PT DROVE HIMSELF HERE, PT HAD + COVID-19 TEST ON 02/15/20-DONE OUTPATIENT, STATES HE BEGAN GETTING SICK LAST SATURDAY/SATURDAY PT C/O FEVER UP TO 106--TOOK TYLENOL AT 1900 TONIGHT, TEMP IS 102 ON ARRIVAL HERE, DENIES SHORTNESS OF BREATH, BUT PT APPEARS TO BE MILDLY DYSPNEIC ON AR RIVAL C/O GENERALIZED WEAKNESS, C/O NON-PRODUCTIVE COUGH, C/O BODY ACHES, C/O NAUSEA, HAS VOMITED A COUPLE OF TIMES TODAY. HAS HAD DIARRHEA--2 EPISODES TODAY NO LOSS OF TASTE OR SMELL, NO CHEST PAIN OR PAIN WITH BREATHING. PT HAS NON- INSULIN DEPENDENT DIABETES, AND HTN. DENIES ANY HISTORY OF HEART OR LUNG PROBLEMS When I spoke to pt this am, he stated he was doing ok. He understood the need for central line, secondary to hyponatremia which will be treated with hypertonic saline. Allergies and Home Medications Allergies Coded Allergies: No Known Drug Allergies (Verified , 08/13/17) Home Medications Allopurinol 100 Mg Tablet, 100 MG PO BID, (Reported) Ezetimibe/Simvastatin 1 Each Tablet, 1 TAB PO DAILY, (Reported) Fenofibric Acid (Choline) 135 Mg Capsule.dr, 135 MG PO DAILY, (Reported) Lansoprazole 30 Mg Capsule.dr, 30 MG PO DAILY, (Reported) Liraglutide 0.6 Mg/0.1 Ml Pen.injctr, 1.8 MG SQ DAILY, (Reported) Tamsulosin HCl 0.4 Mg Cap, 0.4 MG PO DAILY, (Reported) Patient Home Medication List Home Medication List Reviewed: Yes Past Wpniqja-Aguytv-Hzysqu Hx Patient Social History Alcohol Use: Denies Use Recreational Drug Use: No Smoking Status: Former Smoker Former Smoker, Quit: Apr 02, 1994 Recent Foreign Travel: No Contact w/Someone Who Travel: No Recent Infectious Disease Expo: Yes Recent Hopitalizations: No Immunizations Up To Date Tetanus Booster (TDap): Unknown PED Vaccines UTD: No Date of Pneumonia Vaccine: Feb 03, 2015 Seasonal Allergies Seasonal Allergies: No Surgeries History of Surgeries: Yes (ING HERNIA;BILAT KNEE SCOPES & TKR;GOITER;LIPOMAS;SKIN LESIONS;EGD/C-SCOPE ) Surgeries: Abdominal, Joint Replacement, Orthopedic Respiratory History of Respiratory Disorde: Yes (USES CPAP) Respiratory Disorders: Sleep Apnea Cardiovascular History of Cardiac Disorders: Yes Cardiac Disorders: High Cholesterol, Hypertension Neurological History of Neurological Disord: No Reproductive System Hx Reproductive Disorders: No Sexually Transmitted Disease: No HIV/AIDS: No Genitourinary History of Genitourinary Disor: Yes (URINARY FREQUENCY; RENAL INSUFFICIENCY) Gastrointestinal History of Gastrointestinal Di: Yes (RECTAL POLYPECTOMY; DIVERTICULAR DZ NOTED ON COLONOSCOPY;GASTRITIS) Gastrointestinal Disorders: Gastroesophageal Reflux, Diverticulosis, Hemorrhoids, Polyps Musculoskeletal History of Musculoskeletal Dis: Yes (OSTEOARTHRITIS;BILAT KNEE SCOPES AND BILAT TKR) Musculoskeletal Disorders: Degenerate Disk Disease, Arthritis, Chronic Back Pain Endocrine History of Endocrine Disorders: Yes (GOITER REMOVED) Endocrine Disorders: Diabetes, Non-Insulin dep HEENT History of HEENT Disorders: Yes (GLASSES, BEGINING OF CATARACTS) HEENT Disorders: Cataract Loss of Vision: Bilateral Hearing Impairment: Denies Cancer History of Cancer: Yes (PRE-SKIN CANCER REMOVAL) Cancer: Skin Psychosocial History of Psychiatric Problem: No Integumentary History of Skin or Integumenta: Yes (PRECANCEROUS SKIN LESIONS; LIPOMAS) Blood Transfusions History of Blood Disorders: No Adverse Reaction to a Blood Tr: No Family Medical History Significant Family History: Other Conditions/Hx (Alcoholism and drug abuse) Family Medial History: Alcoholism 19 FATHER G8 BROTHER Drug abuse G8 BROTHER Review of Systems-General Constitutional: No chills, No diaphoresis EENTM: No blurred vision, No double vision, No mouth pain, No epistaxis Respiratory: cough, dyspnea on exertion; No hemoptysis, No short of breath Cardiovascular: No chest pain, No palpitations Gastrointestinal: No abdominal pain; diarrhea, nausea, vomiting Genitourinary: No dysuria, No frequency, No hematuria Musculoskeletal: joint pain, joint swelling Skin: No change in color, No change in hair/nails Psychiatric/Neurological: Denies Anxiety, Denies Depressed, Denies Seizure, Denies Tremors Other pt denies any hx of abnormal bleeding or bruising Physical Exam-General Problems Physical Exam Vital Signs Vital Signs - First Documented 02/19/20 02/20/20 22:55 00:00 Temp 38.9 Pulse 146 Resp 32 B/P (MAP) 143/99 (114) Pulse Ox 91 O2 Delivery Room Air O2 Flow Rate 3.00 FiO2 98 Capillary Refill : Less Than 3 Seconds General Appearance: WD/WN, no apparent distress, obese Eyes: Bilateral Eye PERRL, Bilateral Eye EOMI HEENT: pharynx normal; No scleral icterus (R), No scleral icterus (L) Neck: non-tender, supple Respiratory: lungs clear, normal breath sounds, no respiratory distress, no accessory muscle use Cardiovascular: regular rate, rhythm, no murmur Gastrointestinal: non tender, soft, no organomegaly, no pulsatile mass Back: no CVA tenderness, no vertebral tenderness Extremities: normal range of motion, no pedal edema, no calf tenderness Neurologic/Psychiatric: performance improvement consultant II-XII nml as tested, no motor/sensory deficits, alert, normal mood/affect, oriented x 3 Skin: normal color, warm/dry Lymphatic: no adenopathy (neck, axilla or groin) Data Review Labs Laboratory Tests 02/19/20 23:10: White Blood Count 7.9, Red Blood Count 4.38, Hemoglobin 13.2L, Hematocrit 39L, Mean Corpuscular Volume 89, Mean Corpuscular Hemoglobin 30, Mean Corpuscular Hemoglobin Concent 34, Red Cell Distribution Width 13.5, Platelet Count 205, Mean Platelet Volume 10.9, Immature Granulocyte % (Auto) 1, Neutrophils (%) (Auto) 85H, Lymphocytes (%) (Auto) 10L, Monocytes (%) (Auto) 5, Eosinophils (%) (Auto) 0, Basophils (%) (Auto) 0, Neutrophils # (Auto) 6.7, Lymphocytes # (Auto) 0.8L, Monocytes # (Auto) 0.4, Eosinophils # (Auto) 0.0, Basophils # (Auto) 0.0, Immature Granulocyte # (Auto) 0.1, Erythrocyte Sedimentation Rate 76H, Prothrombin Time 15.9H, INR Comment 1.2, Activated Partial Thromboplast Time 40H , D-Dimer 1.41H, Sodium Level 123*L, Potassium Level 4.9, Chloride Level 91L, Carbon Dioxide Level 15L, Anion Gap 17H, Blood Urea Nitrogen 47H, Creatinine 2.99H, Estimat Glomerular Filtration Rate 21, BUN/Creatinine Ratio 16, Glucose Level 125H, Lactic Acid Level 1.16, Calcium Level 8.2L, Corrected Calcium 8.4L, Magnesium Level 1.8, Total Bilirubin 0.5, Aspartate Amino Transf (AST/SGOT) 66H, Alanine Aminotransferase (ALT/SGPT) 40, Alkaline Phosphatase 64, Total Creatine Kinase 653H, Creatine Kinase MB 3.1, Myoglobin 708.9H, Troponin I < 0.028, C- Reactive Protein High Sensitivity 21.09H, B-Type Natriuretic Peptide 482.3H, Total Protein 7.3, Albumin 3.8, Procalcitonin 5.88H 02/19/20 23:25: Blood Gas Puncture Site RIGHT RADIAL, Blood Gas Patient Temperature 39.3, Arteri al Blood pH 7.33*L, Arterial Blood Partial Pressure CO2 27L, Arterial Blood Partial Pressure O2 118H, Arterial Blood HCO3 14*L, Arterial Blood Total CO2 14.3L, Arterial Blood Oxygen Saturation 97, Arterial Blood Base Excess -10.9L, Jared Test UNKNOWN, Blood Gas Ventilator Setting NO, Blood Gas Inspired Oxygen 3 02/20/20 05:38: White Blood Count 6.6, Red Blood Count 3.83L, Hemoglobin 11.3L, Hematocrit 35L, Mean Corpuscular Volume 91, Mean Corpuscular Hemoglobin 30, Mean Corpuscular Hemoglobin Concent 32, Red Cell Distribution Width 13.9, Platelet Count 157, Mean Platelet Volume 11.3, Immature Granulocyte % (Auto) 1, Neutrophils (%) (Auto) 86H, Lymphocytes (%) (Auto) 9L, Monocytes (%) (Auto) 3, Eosinophils (%) (Auto) 0, Basophils (%) (Auto) 0, Neutrophils # (Auto) 5.7, Lymphocytes # (Auto) 0.6L, Monocytes # (Auto) 0.2, Eosinophils # (Auto) 0.0, Basophils # (Auto) 0.0, Immature Granulocyte # (Auto) 0.1, Sodium Level 121*L, Potassium Level 5.4H, Chloride Level 96L, Carbon Dioxide Level 10L, Anion Gap 15H, Blood Urea Nitrogen 49H, Creatinine 3.02H, Estimat Glomerular Filtration Rate 20, BUN/Creatinine Ratio 16, Glucose Level 310H, Calcium Level 7.2L, Corrected Calcium 7.8L, Total Bilirubin 0.4, Aspartate Amino Transf (AST/SGOT) 125H, Alanine Aminotransferase (ALT/SGPT) 60H, Alkaline Phosphatase 61, Troponin I < 0.028, Total Protein 6.2L, Albumin 3.3, Glucometer 292H 02/20/20 10:47: Glucometer 271H 02/20/20 10:48: Sodium Level 127L, Potassium Level 5.0, Chloride Level 100, Carbon Dioxide Level 14L, Anion Gap 13, Blood Urea Nitrogen 51H, Creatinine 2.92H, Estimat Glomerular Filtration Rate 21, BUN/Creatinine Ratio 17, Glucose Level 289H, Calcium Level 7.4L Microbiology 02/19/20 Influenza Types A,B Antigen (CATY) - Final, Complete Assessment/Plan Assessment/Plan Assessment/Plan Hyponatremia Venous insufficiency Covid-19 Pt needs a central line so he can get hypertonic saline to treat Hyponatremia. Discussed the procedure with pt; risks and complications not limited to pain, bleeding, infection, scare and even pneumothorax. All questions answered to his satisfaction. Clinical Quality Measures DVT/VTE Risk/Contraindication: Risk Factor Score Per Nursin RFS Level Per Nursing on Admit: 4+=Very High ANIA COULTER DO Feb 20, 2020 12:45
--- NOTE | 2020-02-20 13:06 | Progress Note-Post Operative ---
Post-Operative Progess Note Surgeon (s)/Claim Benefit Specialist (s) Surgeon ANIA COULTER DO Claim Benefit Specialist: none Pre-Operative Diagnosis Hyponatremia, Venous lnsufficiency Post-Operative Diagnosis same Procedure & Operative Findings Date of Procedure 02/20/20 Procedure Performed/Findings PROCEDURE: [Right] internal jugular central line placement using ultrasound guidance. COMPLICATIONS: None. INDICATIONS: The patient is a 74 year old male with hyponatremia and venous insufficiency. Patient understands the risks and benefits of central line placement and wished to proceed with the procedure. Consent was signed on the chart. PROCEDURE: The patient was in his bed in the ICU, was prepped and draped in the sterile fashion. A surgical pause was performed. Ultrasound was used to locate the internal jugular vein. Once located anesthetic was infiltrated above it. Using 18 gauge finder needle with negative inspiration the right internal vein was accessed and watched with US as needle entered vein. Dark nonpulsatile blood was withdrawn. The wire was inserted using the Seldinger technique. US assured proper placement and wire see in the IJ. The needle was removed, a stab incision was made with a #11 blade and then the dilator was advanced over the wire using the Seldinger technique and then removed. Next the catheter was advanced over wire using the Seldinger technique, it went in easily and the wire was removed. Locking ports had been placed on all three lumens; each was then accessed good flash of blood and were then flushed with saline. The central line was then sutured in with 3-0 silk on a Jorge Alberto needle. The area was then washed and dried and sterile dressing placed over catheter. The patient tolerated the procedure well without complication. Anesthesia Type local lidocaine Estimated Blood Loss Estimated blood loss (mL): scant Specimens/Packing Specimens Removed none ANIA COULTER DO Feb 20, 2020 13:06
[2020-02-20 14:51] VITALS: BP 119/83
[2020-02-20 14:58] VITALS: BP 117/83
[2020-02-20] MEDS ORDERED: RT-ALBUTEROL INHALER HFA (VENTOLIN HFA) 18 GM IH SCH (15:00)
[2020-02-20 15:24] LABS: CALCIUM 7.3 MG/DL (8.5-10.1); CREATININE SERUM 2.51 MG/DL (0.60-1.30); POTASSIUM 4.4 MMOL/L (3.6-5.0)
[2020-02-20] MEDS: RT-ALBUTEROL INHALER HFA (VENTOLIN HFA) 18 GM IH SCH ×2 (16:14→19:02)
--- NOTE | 2020-02-20 16:39 | Consultation-Cardiology ---
HPI-Cardiology Cardiology Consultation: Date of Consultation 02/20/20 Date of Admission Attending Physician Tsering Mandel MD Admitting Physician Brayden Moeller MD Consulting Physician Larry RAMACHANDRAN MD HPI: Time Seen by a Provider: 13:00 Chief Complaint: Confusion This is a 74-year-old gentleman with history of hypertension, diabetes, hyperlipidemia who presented to the ER with complains of confusion. He is COVID positive. And has had fever and malaise. Febrile. He was found to be in atrial fibrillation with rapid ventricular rate. He was started on amiodarone infusion. Episodes of diarrhea. When I saw the patient he was less confused. He denied active smoking and pertinent family history. His heart rate was better controlled, atrial fibrillation with heart rate in the 70s and 80s. He was given amiodarone infusion overnight. Review of Systems-Cardiology Review of Systems Constitutional: As described under HPI; No As described under HPI, No no symptoms reported, No chills, No fever, No lightheadedness Eyes: No As described under HPI, No no symptoms reported, No blindness, No blurred vision, No contact lenses, No drainage, No decreased acuity, No foreign body sensation, No pain, No vision change Ears/Nose/Throat: No As described under HPI, No no symptoms reported, No chronic hearing loss, No ear discharge, No ear pain, No nasal drainage, No ulcerations Respiratory: No no symptoms reported; As described under HPI; No As described under HPI, No cough, No orthopnea, No shortness of breath, No SOB with excertion Cardiovascular: No no symptoms reported; As described under HPI; No As described under HPI, No chest pain, No edema; irregular heart rate; No lightheadedness, No palpitations Gastrointestinal: No no symptoms reported, No As described under HPI, No abdomen distended, No abdominal pain, No blood streaked bowels, No constipation, No diarrhea, No nausea, No vomiting; nausea/vomiting/diarrhea; No stool coloration changes Genitourinary: No As described under HPI, No burning, No dysuria, No discharge, No frequency, No flank pain, No hematuria, No urgency Skin: No rash, No skin related problems, No ulcerations Psychiatric/Neurological: As described under HPI; No anxiety, No depression, No seizure, No focal weakness, No syncope Hematologic: No bleeding abnormalities HQM-Tazmcr-[id number] Hx Patient Social History Marrital Status: Alcohol Use: Denies Use Recreational Drug Use: No Smoking Status: Former Smoker Former smoker/When Quit: Apr 02, 1994 Recent Foreign Travel: No Recent Infectious Disease Expo: Yes Hospitalization with Isolation: Denies Immunizations Up To Date Tetanus Booster (TDap): Unknown Date of Pneumonia Vaccine: Feb 03, 2015 Past Medical History PMH As described under Assessment. Family Medical History Family History: Alcoholism 19 FATHER G8 BROTHER Drug abuse G8 BROTHER No Family History of: AIDS Alzheimer's disease Arthritis Asthma Cancer of mouth Cardiovascular disease Colon cancer Completed stroke Dementia Diabetes mellitus Hypertension Kidney disease Myocardial infarction Parkinson's disease Prostate cancer Psychosocial problem Respiratory disorder Seizure disorder Severe allergy Thyroid disease Tuberculosis Allergies and Home Medications Allergies Coded Allergies: No Known Drug Allergies (Verified , 08/13/17) Home Medications Allopurinol 100 Mg Tablet, 100 MG PO BID, (Reported) Ezetimibe/Simvastatin 1 Each Tablet, 1 TAB PO DAILY, (Reported) Fenofibric Acid (Choline) 135 Mg Capsule.dr, 135 MG PO DAILY, (Reported) Lansoprazole 30 Mg Capsule.dr, 30 MG PO DAILY, (Reported) Liraglutide 0.6 Mg/0.1 Ml Pen.injctr, 1.8 MG SQ DAILY, (Reported) Tamsulosin HCl 0.4 Mg Cap, 0.4 MG PO DAILY, (Reported) Patient Home Medication List Home Medication List Reviewed: Yes Physical Exam-Cardiology Physical Exam Vital Signs/I&O 02/21/20 02/21/20 02/21/20 02/21/20 02:00 03:00 04:00 04:30 Temp 37.0 Pulse 89 105 89 Resp 20 B/P (MAP) 144/82 128/68 140/76 Pulse Ox 96 96 94 O2 Delivery Nasal Cannula Nasal Cannula Nasal Cannula O2 Flow Rate 1.00 1.00 1.00 02/21/20 02/21/20 02/21/20 02/21/20 05:00 06:00 07:00 07:00 Pulse 82 96 109 103 Resp 20 23 29 B/P (MAP) 133/72 144/97 139/62 Pulse Ox 93 93 95 O2 Delivery Nasal Cannula Nasal Cannula Nasal Cannula O2 Flow Rate 1.00 1.00 1.00 02/21/20 02/21/20 02/21/20 02/21/20 07:23 07:52 08:00 08:13 Temp 36.8 Pulse 114 Resp 19 B/P (MAP) 136/96 Pulse Ox 82 97 O2 Delivery Nasal Cannula Nasal Cannula Nasal Cannula O2 Flow Rate 2.00 1.00 1.00 02/21/20 02/21/20 02/21/20 02/21/20 09:00 10:00 10:58 11:00 Temp 37.2 Pulse 114 122 120 Resp 31 38 31 B/P (MAP) 113/73 120/81 140/104 Pulse Ox 95 96 95 O2 Delivery Nasal Cannula Nasal Cannula Nasal Cannula O2 Flow Rate 1.00 1.00 1.00 02/21/20 02/21/20 11:35 12:14 Pulse 109 Pulse Ox 96 O2 Delivery Nasal Cannula O2 Flow Rate 2.00 02/21/20 00:00 Intake Total 1900 ml Output Total 3700 ml Balance -1800 ml Capillary Refill : Less Than 3 Seconds Constitutional: appears stated age, AAO x 3; No apparent distress; well- developed, well-nourished HEENT: PERRL; No discharge; hearing is well preserved, oral hygience is good; No ulceration, No xanthelasmas are seen Neck: No carotid bruit; carotid pulses are 2 + bilaterally Respiratory: chest is bilaterally symmetric, lungs clear to auscultation Cardiovascular: irregularly irregular, S1 and S2 Gastrointestinal: soft, audible bowel sounds; No spleenomegaly Rectal: deferred Extremities: normal range of motion, non-tender, normal inspection; No clubbing, No cyanosis; no lower extremity edema bilateral; No significant edema Neurologic/Psychiatric: no motor/sensory deficits, alert, normal mood/affect, oriented x 3, power is 5/5 both on sides Skin: normal color, warm/dry Data Review Labs Laboratory Tests 02/20/20 14:57: Sodium Level 133L, Potassium Level 4.4, Chloride Level 107, Carbon Dioxide Level 13L, Anion Gap 13, Blood Urea Nitrogen 48H, Creatinine 2.51#H, Estimat Glomer ular Filtration Rate 25, BUN/Creatinine Ratio 19, Glucose Level 222H, Calcium Level 7.3L 02/20/20 20:32: Glucometer 281H 02/20/20 23:30: Sodium Level 135, Potassium Level 4.9, Chloride Level 108H, Carbon Dioxide Level 12L, Anion Gap 15H, Blood Urea Nitrogen 47H, Creatinine 2.34H, Estimat Glomerular Filtration Rate 27, BUN/Creatinine Ratio 20, Glucose Level 247H, Calcium Level 7.7L 02/21/20 02:15: White Blood Count 7.3, Red Blood Count 3.90L, Hemoglobin 11.6L, Hematocrit 35L, Mean Corpuscular Volume 90, Mean Corpuscular Hemoglobin 30, Mean Corpuscular Hemoglobin Concent 33, Red Cell Distribution Width 14.4, Platelet Count 201, Mean Platelet Volume 10.8, Immature Granulocyte % (Auto) 1, Neutrophils (%) (Auto) 88H, Lymphocytes (%) (Auto) 7L, Monocytes (%) (Auto) 5, Eosinophils (%) (Auto) 0, Basophils (%) (Auto) 0, Neutrophils # (Auto) 6.4, Lymphocytes # (Auto) 0.5L, Monocytes # (Auto) 0.3, Eosinophils # (Auto) 0.0, Basophils # (Auto) 0.0, Immature Granulocyte # (Auto) 0.1, Neutrophils % (Manual) 87, Lymphocytes % (Manual) 6, Monocytes % (Manual) 3, Band Neutrophils 3, Atypical Lymphocytes 1, Smudge Cells SLIGHT, Anisocytosis SLIGHT, Microcytosis SLIGHT 02/21/20 02:16: Sodium Level 134L, Potassium Level 4.9, Chloride Level 108H, Carbon Dioxide Level 13L, Anion Gap 13, Blood Urea Nitrogen 46H, Creatinine 2.27H, Estimat Glomerular Filtration Rate 28, BUN/Creatinine Ratio 20, Glucose Level 224H, Calcium Level 7.6L, Phosphorus Level 3.4, Magnesium Level 2.1 02/21/20 10:45: Sodium Level 133L, Potassium Level 5.2H, Chloride Level 107, Carbon Dioxide Level 13L, Anion Gap 13, Blood Urea Nitrogen 43H, Creatinine 2.19H, Estimat Glomerular Filtration Rate 30, BUN/Creatinine Ratio 20, Glucose Level 244H, Calcium Level 7.6L Microbiology 02/20/20 MRSA Screen - Final, Complete MRSA not isolated 02/19/20 Blood Culture - Preliminary, Resulted No growth ECG Impression ECG Initial ECG Impression: Atrial Fibrillation w/RVR A/P-Cardiology Assessment/Admission Diagnosis COVID-19 positive, Atrial fibrillation with RVR, Elevated LFTs, Acute kidney injury, Anemia, Hyponatremia, Positive D dimer, Elevated ESR, Metabolic acidosis Plan COVID-19 with systemic sepsis, elevated LFTs, positive D dimer, elevated ESR and metabolic acidosis. Defer to the primary team. Atrial fibrillation with RVR, much better rate control right now. Oral anticoagulation. Continue amiodarone infusion and then changed to amiodarone 200 mg twice a day. Currently rate is well controlled, however may require Cardizem in the near future. Acute kidney injury, IV fluids. Hyponatremia, 3 percent IV saline. Critically ill patient. Thank you for your consultation. Please call me if you have any questions. Natividad Ramachandran MD, FACP, FACC, FSCAI, FHRS, CCDS Interventional Cardiology Cardiac Electrophysiology Vascular Medicine and Endovascular Interventions Clinical Quality Measures DVT/VTE Risk/Contraindication: Risk Factor Score Per Nursin RFS Level Per Nursing on Admit: 4+=Very High Larry RAMACHANDRAN MD Feb 20, 2020 16:39
[2020-02-20] MEDS: TAMSULOSIN 0.4 MG (FLOMAX) CAP PO SCH (17:05)
[2020-02-20] MEDS: APIXABAN 5 MG (ELIQUIS) TABLET PO SCH (20:50)
[2020-02-20] MEDS: FENOFIBRATE 134 MG (LOFIBRA) CAPSULE PO SCH (20:51)
[2020-02-20] MEDS ORDERED: ENOXAPARIN 100 MG/1 ML (LOVENOX) SYR SC SCH (23:30)
[2020-02-20] MEDS: cefTRIAXone 1,000 MG/SWFI 10 ML IV PUSH IV SCH ×2 (23:48)
[2020-02-20] MEDS: AZITHROMYCIN 250 MG TAB (ZITHROMAX) PO SCH (23:48)
[2020-02-21 00:12] LABS: POTASSIUM 4.9 MMOL/L (3.6-5.0)
[2020-02-21 00:13] LABS: CALCIUM 7.7 MG/DL (8.5-10.1)
[2020-02-21 00:17] LABS: CREATININE SERUM 2.34 MG/DL (0.60-1.30)
[2020-02-21] MEDS: SODIUM CHLORIDE 3% 500 ML IV SCH (02:15)
[2020-02-21 02:41] LABS: BASOPHILS % (AUTO) 0 % (0-10); EOSINOPHILS % (AUTO) 0 % (0-10); HEMATOCRIT 35 % (40-54); HEMOGLOBIN 11.6 g/dL (13.3-17.7); LYMPHOCYTES # (AUTO) 0.5 10^3/uL (1.0-4.0); LYMPHOCYTES % (AUTO) 7 % (12-44); MEAN CORPUSCULAR HEMOGLOBIN 30 pg (25-34); MEAN CORPUSCULAR HGB CONC 33 g/dL (32-36); MEAN CORPUSCULAR VOLUME 90 fL (80-99); MEAN PLATELET VOLUME 10.8 fL (9.0-12.2); MONOCYTES # (AUTO) 0.3 10^3/uL (0.0-1.0); MONOCYTES % (AUTO) 5 % (0-12); NEUTROPHILS # (AUTO) 6.4 10^3/uL (1.8-7.8); NEUTROPHILS % (AUTO) 88 % (42-75); PLATELET COUNT 201 10^3/uL (130-400); WHITE BLOOD COUNT 7.3 10^3/uL (4.3-11.0)
[2020-02-21 02:43] LABS: POTASSIUM 4.9 MMOL/L (3.6-5.0)
[2020-02-21 02:44] LABS: CALCIUM 7.6 MG/DL (8.5-10.1)
[2020-02-21 02:48] LABS: CREATININE SERUM 2.27 MG/DL (0.60-1.30); PHOSPHORUS 3.4 MG/DL (2.3-4.7)
[2020-02-21 02:51] LABS: MAGNESIUM 2.1 MG/DL (1.6-2.4)
[2020-02-21 03:42] LABS: ANISOCYTOSIS SLIGHT; ATYPICAL LYMPHOCYTES 1 %; BAND NEUTROPHILS 3 %; LYMPHOCYTES % (MANUAL) 6 %; MICROCYTOSIS SLIGHT; MONOCYTES % (MANUAL) 3 %; NEUTROPHILS % (MANUAL) 87 %; SMUDGE CELLS SLIGHT
[2020-02-21] MEDS: KCL 20 MEQ TAB (K-DUR) PO SCH ×2 (06:13→23:40)
[2020-02-21] MEDS: AMIODARONE 200 MG (CORDARONE) TAB PO SCH ×2 (06:13→17:10)
[2020-02-21] MEDS: MAGNESIUM 1 GM/100 ML IVPB 100 ML IV SCH ×2 (06:13→23:40)
[2020-02-21] MEDS: POTASSIUM CL 10MEQ/50ML IVPB 50 ML IV SCH ×2 (06:13→23:40)
[2020-02-21] MEDS: inSUlin ASPART (NovoLOG) 1 UNIT/0.01 ML (CHARGE PER UNIT) SC SCH ×5 (06:14→23:28)
[2020-02-21] MEDS: RT-ALBUTEROL INHALER HFA (VENTOLIN HFA) 18 GM IH SCH ×4 (07:22→19:02)
[2020-02-21] MEDS: PANTOPRAZOLE 40 MG (PROTONIX) TAB PO SCH (08:33)
[2020-02-21] MEDS: ASPIRIN E.C. 325 MG (ECOTRIN) TABLET PO SCH (08:33)
[2020-02-21] MEDS: 1/2 NS IV SOLUTION 1,000 ML IV SCH (08:33)
[2020-02-21] MEDS: APIXABAN 5 MG (ELIQUIS) TABLET PO SCH ×2 (08:33→20:02)
[2020-02-21] MEDS ORDERED: VYTORIN PO SCH (09:00)
--- NOTE | 2020-02-21 09:04 | Progress Note - Hospitalist ---
Subjective HPI/CC On Admission Date Seen by Provider: Feb 21, 2020 Time Seen by Provider: 09:00 Pt is a 74yoCM with a PMH HTN, HLD, NIDDMII who presented to the ER due to confusion. He was tested for COVID on 02/14 and was found to be positive. He became symptomatic roughly 1 week ago with fevers and malaise. He states that yesterday he became confused and his daughter advised him to seek evaluation in the ER. He was febrile on a arrival and reports it was up to 106 at home. He was in a-fib, which is new for him on arrival as well. He did not tolerate cardizem gtt in the ER and was switched to amiodarone gtt. He had nausea and poor oral intake. He had two episodes of diarrhea yesterday. Subjective/Events-last exam Pt reports feeling better today but noticed cant blood in his sputum. Also had sharp pain in catheter. Offered to discontinue catheter but he feels he wouldn't be able to get up to urinate when he needed and that the pain resolved and only lasted for a little. Focused Exam Lactate Level 02/19/20 23:10: Lactic Acid Level 1.16 Time of Focused Exam: 23:30 Objective Exam Vital Signs Vital Signs Date Time Temp Pulse Resp B/P (MAP) Pulse Ox O2 Delivery O2 Flow Rate FiO2 02/21/20 08:13 97 Nasal Cannula 1.00 02/21/20 08:00 114 19 136/96 02/21/20 07:52 36.8 02/20/20 10:02 21 Capillary Refill : Less Than 3 Seconds General Appearance: No Apparent Distress, Obese Respiratory: Lungs Clear, Other (on 2lpm NC) Cardiovascular: No Murmur, Irregularly Irregular, Tachycardia Gastrointestinal: Normal Bowel Sounds, Non Tender, Soft Neurologic/Psychiatric: Alert, Oriented x3 Results/Procedures Lab Laboratory Tests 02/20/20 10:48 02/20/20 14:57 02/20/20 23:30 02/21/20 02:15 02/21/20 02:16 Patient resulted labs reviewed. Imaging: Reviewed Imaging Report Assessment/Plan Assessment and Plan Assess & Plan/Chief Complaint Acute Respiratory Failure from COVID19 Wean oxygen as able Remdesivir and Decadron s/p 1 unit CP Lovenox IS Supportive care New onset a-fib Cardiology consulted, appreciate recs Off amio gtt but very tachycardiac (138)- morning meds being given Will monitor to make sure rate improves Lovenox Acute of CKD Stage 3 Hyponatremia Daughter reports known stage 3 CKD but unsure of baseline creatinine Continue IVF hypertonic saline to DC this AM as up to 134 HTN trend, BP well controlled NIDDMII SSI Anticipate higher blood sugars with steroids CKD Stage 3 Creatinine improved to 2.27 this AM Likely near his baseline, trend DVT ppx: Lovenox Diagnosis/Problems Diagnosis/Problems (1) Pneumonia due to COVID-19 virus Status: Acute (2) Acute respiratory failure due to COVID-19 Status: Acute (3) Acute renal failure superimposed on chronic kidney disease Status: Acute Qualifiers: Acute renal failure type: unspecified Chronic kidney disease stage: stage 3 (moderate) Qualified Codes: N17.9 - Acute kidney failure, unspecified; N18.3 - Chronic kidney disease, stage 3 (moderate) (4) Hyponatremia Status: Acute (5) Non-insulin dependent diabetes mellitus Status: Acute Clinical Quality Measures DVT/VTE Risk/Contraindication: Risk Factor Score Per Nursin RFS Level Per Nursing on Admit: 4+=Very High REGAN HORN MD Feb 21, 2020 09:04
[2020-02-21] MEDS: dilTIAZem120 MG (CARDIZEM CD) CAP PO SCH ×2 (09:47→20:02)
[2020-02-21] MEDS: REMDESIVIR INJ 100 MG in NS (IVPB) 230 ML IV SCH (10:45)
[2020-02-21 11:07] LABS: POTASSIUM 5.2 MMOL/L (3.6-5.0)
[2020-02-21 11:08] LABS: CALCIUM 7.6 MG/DL (8.5-10.1)
[2020-02-21 11:13] LABS: CREATININE SERUM 2.19 MG/DL (0.60-1.30)
--- NOTE | 2020-02-21 13:06 | Cardiology Progress Note ---
Cardiology SOAP Progress Note Objective: I&O/Vital Signs 02/21/20 02/21/20 02/21/20 02/21/20 02:00 03:00 04:00 04:30 Temp 37.0 Pulse 89 105 89 Resp 20 B/P (MAP) 144/82 128/68 140/76 Pulse Ox 96 96 94 O2 Delivery Nasal Cannula Nasal Cannula Nasal Cannula O2 Flow Rate 1.00 1.00 1.00 02/21/20 02/21/20 02/21/20 02/21/20 05:00 06:00 07:00 07:00 Pulse 82 96 109 103 Resp 20 23 29 B/P (MAP) 133/72 144/97 139/62 Pulse Ox 93 93 95 O2 Delivery Nasal Cannula Nasal Cannula Nasal Cannula O2 Flow Rate 1.00 1.00 1.00 02/21/20 02/21/20 02/21/20 02/21/20 07:23 07:52 08:00 08:13 Temp 36.8 Pulse 114 Resp 19 B/P (MAP) 136/96 Pulse Ox 82 97 O2 Delivery Nasal Cannula Nasal Cannula Nasal Cannula O2 Flow Rate 2.00 1.00 1.00 02/21/20 02/21/20 02/21/20 02/21/20 09:00 10:00 10:58 11:00 Temp 37.2 Pulse 114 122 120 Resp 31 38 31 B/P (MAP) 113/73 120/81 140/104 Pulse Ox 95 96 95 O2 Delivery Nasal Cannula Nasal Cannula Nasal Cannula O2 Flow Rate 1.00 1.00 1.00 02/21/20 02/21/20 11:35 12:14 Pulse 109 Pulse Ox 96 O2 Delivery Nasal Cannula O2 Flow Rate 2.00 02/21/20 00:00 Intake Total 1900 ml Output Total 3700 ml Balance -1800 ml Weight (Pounds): 233 Weight (Ounces): 0.0 Weight (Calculated Kilograms): 105.960034 Constitutional: appears stated age, AAO x 3; No apparent distress; well- developed, well-nourished Cardiovascular: irregularly irregular, tachycardia Extremities: No clubbing Neurologic/Psychiatric: alert, normal mood/affect, oriented x 3 Skin: normal color Results/Procedures: Labs Laboratory Tests 02/20/20 14:57: Sodium Level 133L, Potassium Level 4.4, Chloride Level 107, Carbon Dioxide Level 13L, Anion Gap 13, Blood Urea Nitrogen 48H, Creatinine 2.51#H, Estimat Glomerular Filtration Rate 25, BUN/Creatinine Ratio 19, Glucose Level 222H, Calcium Level 7.3L 02/20/20 20:32: Glucometer 281H 02/20/20 23:30: Sodium Level 135, Potassium Level 4.9, Chloride Level 108H, Carbon Dioxide Level 12L, Anion Gap 15H, Blood Urea Nitrogen 47H, Creatinine 2.34H, Estimat Glomerular Filtration Rate 27, BUN/Creatinine Ratio 20, Glucose Level 247H, Calcium Level 7.7L 02/21/20 02:15: White Blood Count 7.3, Red Blood Count 3.90L, Hemoglobin 11.6L, Hematocrit 35L, Mean Corpuscular Volume 90, Mean Corpuscular Hemoglobin 30, Mean Corpuscular Hemoglobin Concent 33, Red Cell Distribution Width 14.4, Platelet Count 201, Mean Platelet Volume 10.8, Immature Granulocyte % (Auto) 1, Neutrophils (%) (Auto) 88H, Lymphocytes (%) (Auto) 7L, Monocytes (%) (Auto) 5, Eosinophils (%) (Auto) 0, Basophils (%) (Auto) 0, Neutrophils # (Auto) 6.4, Lymphocytes # (Auto) 0.5L, Monocytes # (Auto) 0.3, Eosinophils # (Auto) 0.0, Basophils # (Auto) 0.0, Immature Granulocyte # (Auto) 0.1, Neutrophils % (Manual) 87, Lymphocytes % (Manual) 6, Monocytes % (Manual) 3, Band Neutrophils 3, Atypical Lymphocytes 1, Smudge Cells SLIGHT, Anisocytosis SLIGHT, Microcytosis SLIGHT 02/21/20 02:16: Sodium Level 134L, Potassium Level 4.9, Chloride Level 108H, Carbon Dioxide Level 13L, Anion Gap 13, Blood Urea Nitrogen 46H, Creatinine 2.27H, Estimat Glomerular Filtration Rate 28, BUN/Creatinine Ratio 20, Glucose Level 224H, Calcium Level 7.6L, Phosphorus Level 3.4, Magnesium Level 2.1 02/21/20 10:45: Sodium Level 133L, Potassium Level 5.2H, Chloride Level 107, Carbon Dioxide Level 13L, Anion Gap 13, Blood Urea Nitrogen 43H, Creatinine 2.19H, Estimat Glomerular Filtration Rate 30, BUN/Creatinine Ratio 20, Glucose Level 244H, Calcium Level 7.6L Microbiology 02/20/20 MRSA Screen - Final, Complete MRSA not isolated 02/19/20 Blood Culture - Preliminary, Resulted No growth A/P: Assessment/Dx: COVID-19 positive, Atrial fibrillation with RVR, Elevated LFTs, Acute kidney injury, Anemia, Hyponatremia, Positive D dimer, Elevated ESR, Metabolic acidosis Plan: COVID-19 with systemic sepsis, elevated LFTs, positive D dimer, elevated ESR and metabolic acidosis. Defer to the primary team. Atrial fibrillation with RVR. Started on amiodarone 200 mg twice a day. Cardizem 120 mg given this morning. We will give Cardizem 15 mg IV push. May require another Cardizem 120 mg in the evening. It is always difficult to control ventricular rate in atrial fibrillation with severe systemic illness. Oral anticoagulation with Eliquis started. Acute kidney injury, IV fluids. Hyponatremia, 3 percent IV saline. Critically ill patient. Thank you for your consultation. Please call me if you have any questions. Natividad Ramachandran MD, FACP, FACC, FSCAI, FHRS, CCDS Interventional Cardiology Cardiac Electrophysiology Vascular Medicine and Endovascular Interventions Focused Exam Lactate Level 02/19/20 23:10: Lactic Acid Level 1.16 Time of Focused Exam: 23:30 Larry RAMACHANDRAN MD Feb 21, 2020 13:06
--- NOTE | 2020-02-21 13:11 | Progress Note - Surgery ---
Subjective Time Seen by a Provider: 11:06 Subjective/Events-last exam Pt seen and examined, doing well with no complaints. Review of Systems General: No Chills, No Night Sweats Pulmonary: Dyspnea, Cough Cardiovascular: No: Chest Pain Gastrointestinal: No: Nausea, Vomiting, Abdominal Pain Focused Exam Lactate Level 02/19/20 23:10: Lactic Acid Level 1.16 Time of Focused Exam: 23:30 Objective Exam Vital Signs Date Time Temp Pulse Resp B/P (MAP) Pulse Ox O2 Delivery O2 Flow Rate FiO2 02/21/20 12:14 109 02/21/20 11:35 96 Nasal Cannula 2.00 02/21/20 11:00 120 31 140/104 95 Nasal Cannula 1.00 02/21/20 10:58 37.2 02/21/20 10:00 122 38 120/81 96 Nasal Cannula 1.00 02/21/20 09:00 114 31 113/73 95 Nasal Cannula 1.00 02/21/20 08:13 97 Nasal Cannula 1.00 02/21/20 08:00 114 19 136/96 Nasal Cannula 1.00 02/21/20 07:52 36.8 02/21/20 07:23 82 Nasal Cannula 2.00 02/21/20 07:00 103 02/21/20 07:00 109 29 139/62 95 Nasal Cannula 1.00 02/21/20 06:00 96 23 144/97 93 Nasal Cannula 1.00 02/21/20 05:00 82 20 133/72 93 Nasal Cannula 1.00 02/21/20 04:30 37.0 02/21/20 04:00 89 20 140/76 94 Nasal Cannula 1.00 02/21/20 03:00 105 20 128/68 96 Nasal Cannula 1.00 02/21/20 02:00 89 21 144/82 96 Nasal Cannula 1.00 02/21/20 01:00 96 19 122/91 98 Nasal Cannula 1.00 02/21/20 01:00 87 02/21/20 00:00 90 22 135/74 97 Nasal Cannula 1.00 02/20/20 23:56 36.2 02/20/20 23:00 99 18 101/68 96 Nasal Cannula 1.00 02/20/20 22:00 94 21 116/75 96 Nasal Cannula 1.00 02/20/20 21:00 97 Nasal Cannula 1.00 02/20/20 21:00 101 21 122/68 96 Nasal Cannula 1.00 02/20/20 20:54 96 25 97 Nasal Cannula 1.00 02/20/20 20:30 36.5 02/20/20 20:00 101 20 119/78 94 Nasal Cannula 1.00 02/20/20 19:03 98 Room Air 02/20/20 19:00 84 02/20/20 19:00 88 18 130/78 96 Nasal Cannula 1.00 02/20/20 18:00 81 21 126/77 96 Nasal Cannula 2.00 02/20/20 17:00 77 18 126/87 96 Nasal Cannula 2.00 02/20/20 16:50 36.3 73 22 97 Nasal Cannula 02/20/20 16:28 36.3 02/20/20 16:00 72 17 110/74 96 Nasal Cannula 2.00 02/20/20 15:00 72 12 110/83 95 Nasal Cannula 2.00 02/20/20 14:58 36.4 75 23 117/83 97 Nasal Cannula 02/20/20 14:51 36.5 72 14 119/83 95 Nasal Cannula 02/20/20 14:00 82 11 134/83 96 Nasal Cannula 2.00 I & O 02/21/20 07:00 Intake Total 4249 ml Output Total 5850 ml Balance -1601 ml Capillary Refill : Less Than 3 Seconds General Appearance: No Apparent Distress, Obese HEENT: PERRL/EOMI, Moist Mucous Membranes Respiratory: Lungs Clear, Other (on 2lpm NC) Cardiovascular: No Murmur, Irregularly Irregular, Tachycardia Gastrointestinal: non tender, soft, no organomegaly, no pulsatile mass Extremity: Pedal Edema (TRACE EDEMA BILATERALLY) Neurologic/Psychiatric: Alert, Oriented x3 Skin: Warm/Dry (FACE FLUSHED; VERY WARM) Results Lab Laboratory Tests 02/20/20 14:57: Sodium Level 133L, Potassium Level 4.4, Chloride Level 107, Carbon Dioxide Level 13L, Anion Gap 13, Blood Urea Nitrogen 48H, Creatinine 2.51#H, Estimat Glomerular Filtration Rate 25, BUN/Creatinine Ratio 19, Glucose Level 222H, Calcium Level 7.3L 02/20/20 20:32: Glucometer 281H 02/20/20 23:30: Sodium Level 135, Potassium Level 4.9, Chloride Level 108H, Carbon Dioxide Level 12L, Anion Gap 15H, Blood Urea Nitrogen 47H, Creatinine 2.34H, Estimat Glomerular Filtration Rate 27, BUN/Creatinine Ratio 20, Glucose Level 247H, Calcium Level 7.7L 02/21/20 02:15: White Blood Count 7.3, Red Blood Count 3.90L, Hemoglobin 11.6L, Hematocrit 35L, Mean Corpuscular Volume 90, Mean Corpuscular Hemoglobin 30, Mean Corpuscular Hemoglobin Concent 33, Red Cell Distribution Width 14.4, Platelet Count 201, Mean Platelet Volume 10.8, Immature Granulocyte % (Auto) 1, Neutrophils (%) (Auto) 88H, Lymphocytes (%) (Auto) 7L, Monocytes (%) (Auto) 5, Eosinophils (%) (Auto) 0, Basophils (%) (Auto) 0, Neutrophils # (Auto) 6.4, Lymphocytes # (Auto) 0.5L, Monocytes # (Auto) 0.3, Eosinophils # (Auto) 0.0, Basophils # (Auto) 0.0, Immature Granulocyte # (Auto) 0.1, Neutrophils % (Manual) 87, Lymphocytes % (Manual) 6, Monocytes % (Manual) 3, Band Neutrophils 3, Atypical Lymphocytes 1, Smudge Cells SLIGHT, Anisocytosis SLIGHT, Microcytosis SLIGHT 02/21/20 02:16: Sodium Level 134L, Potassium Level 4.9, Chloride Level 108H, Carbon Dioxide Level 13L, Anion Gap 13, Blood Urea Nitrogen 46H, Creatinine 2.27H, Estimat Glomerular Filtration Rate 28, BUN/Creatinine Ratio 20, Glucose Level 224H, Calcium Level 7.6L, Phosphorus Level 3.4, Magnesium Level 2.1 02/21/20 10:45: Sodium Level 133L, Potassium Level 5.2H, Chloride Level 107, Carbon Dioxide Level 13L, Anion Gap 13, Blood Urea Nitrogen 43H, Creatinine 2.19H, Estimat Glomerular Filtration Rate 30, BUN/Creatinine Ratio 20, Glucose Level 244H, Calcium Level 7.6L Microbiology 02/20/20 MRSA Screen - Final, Complete MRSA not isolated 02/19/20 Blood Culture - Preliminary, Resulted No growth Assessment/Plan Assessment/Plan Assessment/Plan Hyponatremia Venous insufficiency Covid-19 Pt central line looks good and is being treated for Hyponatremia. Clinical Quality Measures DVT/VTE Risk/Contraindication: Risk Factor Score Per Nursin RFS Level Per Nursing on Admit: 4+=Very High ANIA COULTER DO Feb 21, 2020 13:11
[2020-02-21] MEDS: TAMSULOSIN 0.4 MG (FLOMAX) CAP PO SCH (17:10)
[2020-02-21] MEDS: FENOFIBRATE 134 MG (LOFIBRA) CAPSULE PO SCH (20:02)
[2020-02-21] MEDS: AZITHROMYCIN 250 MG TAB (ZITHROMAX) PO SCH (22:09)
[2020-02-21] MEDS: cefTRIAXone 1,000 MG/SWFI 10 ML IV PUSH IV SCH ×2 (22:09)
[2020-02-21 22:35] LABS: POTASSIUM 5.2 MMOL/L (3.6-5.0)
[2020-02-21 22:36] LABS: CALCIUM 7.7 MG/DL (8.5-10.1)
[2020-02-21 22:40] LABS: CREATININE SERUM 2.25 MG/DL (0.60-1.30)
[2020-02-22 03:21] LABS: BASOPHILS % (AUTO) 0 % (0-10); EOSINOPHILS % (AUTO) 0 % (0-10); HEMATOCRIT 35 % (40-54); HEMOGLOBIN 11.1 g/dL (13.3-17.7); LYMPHOCYTES # (AUTO) 0.5 10^3/uL (1.0-4.0); LYMPHOCYTES % (AUTO) 9 % (12-44); MEAN CORPUSCULAR HEMOGLOBIN 30 pg (25-34); MEAN CORPUSCULAR HGB CONC 32 g/dL (32-36); MEAN CORPUSCULAR VOLUME 92 fL (80-99); MEAN PLATELET VOLUME 10.5 fL (9.0-12.2); MONOCYTES # (AUTO) 0.4 10^3/uL (0.0-1.0); MONOCYTES % (AUTO) 6 % (0-12); NEUTROPHILS # (AUTO) 5.1 10^3/uL (1.8-7.8); NEUTROPHILS % (AUTO) 84 % (42-75); PLATELET COUNT 205 10^3/uL (130-400); WHITE BLOOD COUNT 6.2 10^3/uL (4.3-11.0)
[2020-02-22 03:42] LABS: ALBUMIN 3.1 GM/DL (3.2-4.5)
[2020-02-22 03:43] LABS: CALCIUM 7.6 MG/DL (8.5-10.1)
[2020-02-22 03:44] LABS: TOTAL PROTEIN 6.1 GM/DL (6.4-8.2)
[2020-02-22 03:46] LABS: BILIRUBIN,TOTAL 0.2 MG/DL (0.1-1.0)
[2020-02-22 03:47] LABS: PHOSPHORUS 2.9 MG/DL (2.3-4.7)
[2020-02-22 03:48] LABS: CREATININE SERUM 2.06 MG/DL (0.60-1.30)
[2020-02-22 03:51] LABS: MAGNESIUM 2.2 MG/DL (1.6-2.4)
[2020-02-22] MEDS: RT-ALBUTEROL INHALER HFA (VENTOLIN HFA) 18 GM IH SCH ×4 (06:30→19:37)
[2020-02-22] MEDS: AMIODARONE 200 MG (CORDARONE) TAB PO SCH ×2 (06:38→17:01)
[2020-02-22] MEDS: inSUlin ASPART (NovoLOG) 1 UNIT/0.01 ML (CHARGE PER UNIT) SC SCH ×3 (06:38→18:25)
[2020-02-22] MEDS: REMDESIVIR INJ 100 MG in NS (IVPB) 230 ML IV SCH (08:17)
[2020-02-22] MEDS: PANTOPRAZOLE 40 MG (PROTONIX) TAB PO SCH (08:17)
[2020-02-22] MEDS: APIXABAN 5 MG (ELIQUIS) TABLET PO SCH ×2 (08:17→20:15)
[2020-02-22] MEDS: ASPIRIN E.C. 325 MG (ECOTRIN) TABLET PO SCH (08:17)
[2020-02-22] MEDS: 1/2 NS IV SOLUTION 1,000 ML IV SCH (08:17)
[2020-02-22] MEDS: dilTIAZem120 MG (CARDIZEM CD) CAP PO SCH (08:18)
[2020-02-22] MEDS ORDERED: AZIL1TAB3 PO ×2 (11:41)
[2020-02-22] MEDS ORDERED: ATEN100T PO ×2 (11:41)
[2020-02-22] MEDS ORDERED: OMG1KC PO ×2 (11:41)
[2020-02-22] MEDS ORDERED: METF-397 PO ×2 (11:41)
[2020-02-22] MEDS ORDERED: ASPI-1238 PO ×2 (11:41)
[2020-02-22] MEDS ORDERED: CARB-254 OU ×2 (11:41)
[2020-02-22] MEDS ORDERED: ERGO50006 PO ×2 (11:41)
[2020-02-22] MEDS ORDERED: ASCO100024 PO ×2 (11:41)
[2020-02-22] MEDS ORDERED: MULT-1136 PO ×2 (11:41)
[2020-02-22] MEDS ORDERED: VITA1TAB17 PO ×2 (11:41)
--- NOTE | 2020-02-22 11:43 | NUR ---
I SPOKE WITH THE PATIENT ON THE ROOM PHONE, CALLED HIS DOCTOR'S OFFICE TO GET A MED LIST, CALLED [facility] AND WENT THROUGH THE EXTERNAL MED HISTORY TO COMPLETE THIS MED REC. PATIENT GETS METFORMIN FROM [facility] VS: 11/25/2019 METFORMIN 500MG #180/90DS OTC: VITAMIN B COMPLEX VITAMIN C VITAMIN D2 ARTIFICIAL TEARS MULTIVITAMIN ASPIRIN FISH OIL CHONDROITIN
[2020-02-22] MEDS ORDERED: GLUC1CAP37 PO ×2 (11:47)
--- NOTE | 2020-02-22 12:15 | Cardiology Progress Note ---
Cardiology SOAP Progress Note Subjective: no acute cardiac complaints Objective: I&O/Vital Signs 02/22/20 02/22/20 02/22/20 02/22/20 01:00 01:00 02:00 03:00 Pulse 76 91 97 86 Resp 25 22 20 B/P (MAP) 92/63 93/61 95/63 Pulse Ox 96 96 96 O2 Delivery Nasal Cannula Nasal Cannula Nasal Cannula O2 Flow Rate 1.00 1.00 1.00 02/22/20 02/22/20 02/22/20 02/22/20 04:00 05:00 06:00 06:30 Pulse 87 83 Resp 27 32 32 B/P (MAP) 101/66 101/76 92/68 Pulse Ox 95 97 96 96 O2 Delivery Nasal Cannula Nasal Cannula Nasal Cannula Nasal Cannula O2 Flow Rate 1.00 1.00 1.00 2.00 02/22/20 02/22/20 02/22/20 02/22/20 07:00 07:00 08:00 09:00 Pulse 101 94 129 Resp 25 20 B/P (MAP) 106/70 108/59 Pulse Ox 94 92 94 O2 Delivery Nasal Cannula Nasal Cannula Nasal Cannula O2 Flow Rate 2.00 2.00 2.00 02/22/20 02/22/20 02/22/20 02/22/20 09:00 09:51 10:00 10:31 Temp 35.9 Pulse 123 104 Resp 32 23 B/P (MAP) 140/92 138/70 Pulse Ox 94 95 98 O2 Delivery Nasal Cannula Nasal Cannula Nasal Cannula O2 Flow Rate 2.00 2.00 2.00 02/22/20 00:00 Intake Total 1125 ml Output Total 2000 ml Balance -875 ml Weight (Pounds): 233 Weight (Ounces): 0.0 Weight (Calculated Kilograms): [id number] Constitutional: appears stated age, AAO x 3; No apparent distress; well- developed, well-nourished Cardiovascular: irregularly irregular, tachycardia Extremities: No clubbing Neurologic/Psychiatric: alert, normal mood/affect, oriented x 3 Skin: normal color Results/Procedures: Labs Laboratory Tests 02/21/20 15:23: Glucometer 335H 02/21/20 19:21: Glucometer 365H 02/21/20 19:56: Glucometer 352H 02/21/20 22:10: Sodium Level 132L, Potassium Level 5.2H, Chloride Level 105, Carbon Dioxide Level 16L, Anion Gap 11, Blood Urea Nitrogen 43H, Creatinine 2.25H, Estimat Glomerular Filtration Rate 29, BUN/Creatinine Ratio 19, Glucose Level 320H, Calcium Level 7.7L 02/21/20 23:23: Glucometer 298H 02/22/20 03:05: White Blood Count 6.2, Red Blood Count 3.75L, Hemoglobin 11.1L, Hematocrit 35L, Mean Corpuscular Volume 92, Mean Corpuscular Hemoglobin 30, Mean Corpuscular Hemoglobin Concent 32, Red Cell Distribution Width 14.8H, Platelet Count 205, Mean Platelet Volume 10.5, Immature Granulocyte % (Auto) 2, Neutrophils (%) (Auto) 84H, Lymphocytes (%) (Auto) 9L, Monocytes (%) (Auto) 6, Eosinophils (%) (Auto) 0, Basophils (%) (Auto) 0, Neutrophils # (Auto) 5.1, Lymphocytes # (Auto) 0.5L, Monocytes # (Auto) 0.4, Eosinophils # (Auto) 0.0, Basophils # (Auto) 0.0, Immature Granulocyte # (Auto) 0.1, Sodium Level 134L, Potassium Level 5.0, Chloride Level 106, Carbon Dioxide Level 16L, Anion Gap 12, Blood Urea Nitrogen 42H, Creatinine 2.06H, Estimat Glomerular Filtration Rate 32, BUN/Creatinine Ratio 20, Glucose Level 197H, Calcium Level 7.6L, Corrected Calcium 8.3L, Phosphorus Level 2.9, Magnesium Level 2.2, Total Bilirubin 0.2, Aspartate Amino Transf (AST/SGOT) 47H, Alanine Aminotransferase (ALT/SGPT) 43, Alkaline Phosphatase 60, Total Protein 6.1L, Albumin 3.1L 02/22/20 11:49: Glucometer 292H Microbiology 02/20/20 MRSA Screen - Final, Complete MRSA not isolated 02/19/20 Blood Culture - Preliminary, Resulted No growth 02/19/20 Urine Culture - Preliminary, Resulted NO GROWTH A/P: Assessment/Dx: COVID-19 positive, Atrial fibrillation with RVR, Elevated LFTs, Acute kidney injury, Anemia, Hyponatremia, Positive D dimer, Elevated ESR, Metabolic acidosis Plan: COVID-19 with systemic sepsis, elevated LFTs, positive D dimer, elevated ESR and metabolic acidosis. Defer to the primary team. Atrial fibrillation with RVR. heart rates in the 100-110 bpm. continue amiodarone 200 mg twice a day. Increase Cardizem to 180 mg twice a day. It is always difficult to control ventricular rate in atrial fibrillation with severe systemic illness. Oral anticoagulation with Eliquis Acute kidney injury, IV fluids. Hyponatremia, improved. Thank you for your consultation. Please call me if you have any questions. Natividad Ramachandran MD, FACP, FACC, FSCAI, FHRS, CCDS Interventional Cardiology Cardiac Electrophysiology Vascular Medicine and Endovascular Interventions Focused Exam Lactate Level 02/19/20 23:10: Lactic Acid Level 1.16 Time of Focused Exam: 23:30 Larry RAMACHANDRAN MD Feb 22, 2020 12:15
--- NOTE | 2020-02-22 13:35 | NUR ---
Report called to JASEN Willis who will assume pt care on arrival. VSS at time of transfer. Pt transported via wheelchair with personal belongings with pt.
--- NOTE | 2020-02-22 13:40 | NUR ---
PATIENT ARRIVED TO ROOM AT THIS TIME, REPORT RECEIVED FROM RYNE AGGARWAL. I AGREE WITH PREVIOUS RN'S ASSESSMENT AND WILL ASSUME CARE AT THIS TIME. CALL LIGHT WITHIN REACH.
--- NOTE | 2020-02-22 14:14 | Progress Note - Hospitalist ---
Subjective HPI/CC On Admission Date Seen by Provider: Feb 22, 2020 Time Seen by Provider: 09:40 Pt is a 74yoCM with a PMH HTN, HLD, NIDDMII who presented to the ER due to confusion. He was tested for COVID on 02/14 and was found to be positive. He became symptomatic roughly 1 week ago with fevers and malaise. He states that yesterday he became confused and his daughter advised him to seek evaluation in the ER. He was febrile on a arrival and reports it was up to 106 at home. He was in a-fib, which is new for him on arrival as well. He did not tolerate cardizem gtt in the ER and was switched to amiodarone gtt. He had nausea and poor oral intake. He had two episodes of diarrhea yesterday. Subjective/Events-last exam He is feeling better. He is not having any fevers. He denies shortness of breath. He still has a bit of a cough. He has no other complaints or concerns. He denies chest pain. Focused Exam Lactate Level 02/19/20 23:10: Lactic Acid Level 1.16 Time of Focused Exam: 23:30 Objective Exam Vital Signs Vital Signs Date Time Temp Pulse Resp B/P (MAP) Pulse Ox O2 Delivery O2 Flow Rate FiO2 02/22/20 12:59 35.9 02/22/20 12:00 126 20 126/84 89 Nasal Cannula 2.00 02/20/20 10:02 21 Capillary Refill : Less Than 3 Seconds General Appearance: No Apparent Distress, Obese Respiratory: Lungs Clear, Normal Breath Sounds, No Respiratory Distress Cardiovascular: No Murmur, Irregularly Irregular, Tachycardia Gastrointestinal: Normal Bowel Sounds, Non Tender, Soft Extremity: Normal Inspection, Non Tender, No Pedal Edema Neurologic/Psychiatric: Alert, Oriented x3, No Motor/Sensory Deficits, Normal Mood/Affect Skin: Normal Color, Warm/Dry Results/Procedures Lab Laboratory Tests 02/21/20 22:10 02/22/20 03:05 Patient resulted labs reviewed. Imaging: Reviewed Imaging Report Assessment/Plan Assessment and Plan Assess & Plan/Chief Complaint Acute respiratory failure due to COVID-19 Weaning oxygen as able, currently on 2 L Remdesivir and Decadron s/p 1 unit CP New onset a-fib Cardiology consulted, appreciate recs continue amiodarone and Cardizem Eliquis for stroke prophylaxis KING on CKD 3 Cr 2.06, improving, appears to be near baseline IV fluids discontinued HTN trend, BP well controlled T2DM SSI DVT ppx: already receiving therapeutic anticoagulation Hyponatremia, resolved Diagnosis/Problems Diagnosis/Problems (1) Acute respiratory failure due to COVID-19 Status: Acute (2) Pneumonia due to COVID-19 virus Status: Acute (3) Acute renal failure superimposed on chronic kidney disease Status: Acute Qualifiers: Acute renal failure type: unspecified Chronic kidney disease stage: stage 3 (moderate) Qualified Codes: N17.9 - Acute kidney failure, unspecified; N18.3 - Chronic kidney disease, stage 3 (moderate) (4) Hyponatremia Status: Acute (5) Non-insulin dependent diabetes mellitus Status: Acute (6) Obesity Status: Acute Qualifiers: Obesity type: due to excess calories Serious obesity comorbidity presence: with serious comorbidity Body mass index: BMI 39.0-39.9 Clinical Quality Measures DVT/VTE Risk/Contraindication: Risk Factor Score Per Nursin RFS Level Per Nursing on Admit: 4+=Very High GLYNN HOOKS MD Feb 22, 2020 14:14
[2020-02-22] MEDS: TAMSULOSIN 0.4 MG (FLOMAX) CAP PO SCH (17:01)
[2020-02-22] MEDS: FENOFIBRATE 134 MG (LOFIBRA) CAPSULE PO SCH (20:15)
[2020-02-22] MEDS ORDERED: cefTRIAXone 1,000 MG IV (ROCEPHIN) VIAL ONE (23:47)
[2020-02-22] MEDS ORDERED: WATER (STERILE) FOR INJECTION 10 ML ONE (23:47)
[2020-02-23] MEDS: AZITHROMYCIN 250 MG TAB (ZITHROMAX) PO SCH ×2 (00:12→23:12)
[2020-02-23] MEDS: cefTRIAXone 1,000 MG/SWFI 10 ML IV PUSH IV SCH ×4 (00:12→23:56)
[2020-02-23] MEDS: inSUlin ASPART (NovoLOG) 1 UNIT/0.01 ML (CHARGE PER UNIT) SC SCH ×5 (00:12→21:17)
[2020-02-23 05:44] LABS: BASOPHILS % (AUTO) 0 % (0-10); EOSINOPHILS % (AUTO) 0 % (0-10); HEMATOCRIT 38 % (40-54); HEMOGLOBIN 12.1 g/dL (13.3-17.7); LYMPHOCYTES # (AUTO) 0.6 10^3/uL (1.0-4.0); LYMPHOCYTES % (AUTO) 10 % (12-44); MEAN CORPUSCULAR HEMOGLOBIN 29 pg (25-34); MEAN CORPUSCULAR HGB CONC 32 g/dL (32-36); MEAN CORPUSCULAR VOLUME 91 fL (80-99); MEAN PLATELET VOLUME 10.5 fL (9.0-12.2); MONOCYTES # (AUTO) 0.4 10^3/uL (0.0-1.0); MONOCYTES % (AUTO) 6 % (0-12); NEUTROPHILS # (AUTO) 4.4 10^3/uL (1.8-7.8); NEUTROPHILS % (AUTO) 80 % (42-75); PLATELET COUNT 214 10^3/uL (130-400); WHITE BLOOD COUNT 5.5 10^3/uL (4.3-11.0)
[2020-02-23 06:03] LABS: ALBUMIN 3.2 GM/DL (3.2-4.5); POTASSIUM 5.5 MMOL/L (3.6-5.0)
[2020-02-23 06:04] LABS: CALCIUM 8.3 MG/DL (8.5-10.1)
[2020-02-23 06:05] LABS: TOTAL PROTEIN 6.6 GM/DL (6.4-8.2)
[2020-02-23 06:07] LABS: BILIRUBIN,TOTAL 0.3 MG/DL (0.1-1.0)
[2020-02-23 06:08] LABS: PHOSPHORUS 3.1 MG/DL (2.3-4.7)
[2020-02-23 06:09] LABS: CREATININE SERUM 1.91 MG/DL (0.60-1.30)
[2020-02-23 06:12] LABS: MAGNESIUM 2.5 MG/DL (1.6-2.4)
[2020-02-23] MEDS: RT-ALBUTEROL INHALER HFA (VENTOLIN HFA) 18 GM IH SCH ×4 (06:13→18:15)
[2020-02-23] MEDS: POTASSIUM CL 10MEQ/50ML IVPB 50 ML IV SCH (06:14)
[2020-02-23] MEDS: MAGNESIUM 1 GM/100 ML IVPB 100 ML IV SCH (06:14)
[2020-02-23] MEDS: KCL 20 MEQ TAB (K-DUR) PO SCH (06:14)
[2020-02-23] MEDS: AMIODARONE 200 MG (CORDARONE) TAB PO SCH ×2 (06:37→18:00)
[2020-02-23] MEDS ORDERED: inSUlin ASPART (NovoLOG) 1 UNIT/0.01 ML (CHARGE PER UNIT) SC SCH (07:45)
[2020-02-23] MEDS ORDERED: SOD POLYSTERENE 15 GM/60 ML (KAYEXALATE) UNIT DOSE PO ONE (07:45)
[2020-02-23] MEDS: ASPIRIN E.C. 325 MG (ECOTRIN) TABLET PO SCH (09:28)
[2020-02-23] MEDS: PANTOPRAZOLE 40 MG (PROTONIX) TAB PO SCH (09:28)
[2020-02-23] MEDS: REMDESIVIR INJ 100 MG in NS (IVPB) 230 ML IV SCH (09:28)
[2020-02-23] MEDS: APIXABAN 5 MG (ELIQUIS) TABLET PO SCH ×2 (09:28→20:54)
--- NOTE | 2020-02-23 14:04 | NUR ---
"RD ASSESSMENT PMHx: HTN; DM; HLD; GERD; diverticulosis; CA(skin); PT INTERACTION: Note pt is currently in COVID isolation, per chart review. Note all diet information for nutrition assessment is per Krysta AGGARWAL or per chart review. Krysta states current appetite appears good. Note avg PO intake 96% x2d, per chart review. Krysta states no issues with nausea, vomiting, constipation, or diarrhea that she is aware of, and that pt stated his last BM was 02/21. Note pt not currently on bowel regimen per chart review. Note unable to determine recent wt hx, per chart review. Note unable to determine current level of DM management, and unable to determine recent HbA1c, per chart review. ABNORMAL NUTRITION-RELATED LAB VALUES LOW: HIGH: K 5.5; BUN 43; cr 1.91; glu 284; MG 2.5; AST 55; Est. kcal needs: 9726-8336 kcal | 15-18 kcal/kg Est. Pro needs: 83-104 g Pro | 0.8-1.0 g Pro/kg PES STATEMENT: Given current PO intake, no nutrition diagnosis at this time (NO-1.1). INTERVENTION: Continue with current diet order of CHO 60g/m 1snack diet, with modifier of 2gm Potassium restriction. Did not offer diet education on DM management d/t COVID isolation. Will continue to follow and reassess as pt needs, intake, and status change. Jaylin Salcedo, MS RD LD"
--- NOTE | 2020-02-23 15:08 | Progress Note - Hospitalist ---
Subjective HPI/CC On Admission Date Seen by Provider: Feb 23, 2020 Time Seen by Provider: 09:10 Pt is a 74yoCM with a PMH HTN, HLD, NIDDMII who presented to the ER due to confusion. He was tested for COVID on 02/14 and was found to be positive. He became symptomatic roughly 1 week ago with fevers and malaise. He states that yesterday he became confused and his daughter advised him to seek evaluation in the ER. He was febrile on a arrival and reports it was up to 106 at home. He was in a-fib, which is new for him on arrival as well. He did not tolerate cardizem gtt in the ER and was switched to amiodarone gtt. He had nausea and poor oral intake. He had two episodes of diarrhea yesterday. Subjective/Events-last exam He denies any complaints. He is sitting in his chair. He denies shortness of breath. He still has a cough. He denies fevers. He denies chest pain and palpitations. Focused Exam Time of Focused Exam: 23:30 Objective Exam Vital Signs Vital Signs Date Time Temp Pulse Resp B/P (MAP) Pulse Ox O2 Delivery O2 Flow Rate FiO2 02/23/20 12:46 141 02/23/20 11:30 35.7 24 151/77 91 Room Air 02/23/20 10:43 2.00 02/20/20 10:02 21 Capillary Refill : Less Than 3 Seconds General Appearance: No Apparent Distress, Obese Respiratory: Lungs Clear, Normal Breath Sounds, No Respiratory Distress Cardiovascular: Irregularly Irregular, Tachycardia Gastrointestinal: Normal Bowel Sounds, Non Tender, Soft Extremity: Normal Inspection, Non Tender, No Pedal Edema Neurologic/Psychiatric: Alert, Oriented x3, No Motor/Sensory Deficits, Normal Mood/Affect Skin: Normal Color, Warm/Dry Results/Procedures Lab Laboratory Tests 02/23/20 05:31 Patient resulted labs reviewed. Imaging: Reviewed Imaging Report Assessment/Plan Assessment and Plan Assess & Plan/Chief Complaint Acute respiratory failure due to COVID-19 Weaning oxygen as able, on room air Remdesivir and Decadron s/p 1 unit CP New onset a-fib Cardiology consulted, appreciate recs Continue amiodarone Increasing Cardizem Eliquis for stroke prophylaxis KING on CKD 3 Hyperkalemia Cr 1.91, improving, appears to be near baseline K 5.5 Kayexalate once Low potassium diet HTN trend, BP well controlled T2DM SSI DVT ppx: already receiving therapeutic anticoagulation Hyponatremia, resolved Diagnosis/Problems Diagnosis/Problems (1) Acute respiratory failure due to COVID-19 Status: Acute (2) Pneumonia due to COVID-19 virus Status: Acute (3) Acute renal failure superimposed on chronic kidney disease Status: Acute Qualifiers: Acute renal failure type: unspecified Chronic kidney disease stage: stage 3 (moderate) Qualified Codes: N17.9 - Acute kidney failure, unspecified; N18.3 - Chronic kidney disease, stage 3 (moderate) (4) Hyponatremia Status: Acute (5) Non-insulin dependent diabetes mellitus Status: Acute (6) Obesity Status: Acute Qualifiers: Obesity type: due to excess calories Serious obesity comorbidity presence: with serious comorbidity Body mass index: BMI 39.0-39.9 Clinical Quality Measures DVT/VTE Risk/Contraindication: Risk Factor Score Per Nursin RFS Level Per Nursing on Admit: 4+=Very High GLYNN HOOKS MD Feb 23, 2020 15:08
[2020-02-23 16:03] VITALS: BP 151/77
--- NOTE | 2020-02-23 17:49 | Physician Query Clarification ---
"Physician Query-General Query to Physician: The medical record reflects the following clinical scenario: History/Risk factors: Covid 19, PNA Clinical Findings: P146, RR 32, SpO2 90% on RA, T 38.9, Procalcitonin 5.88 Treatment: IV fluid bolus, IV ABX, Remdesivir Question: Do you agree with the impression of Sepsis per Dr. Zeeshan Bradley and Dr. Tameka Ramachandran? If you agree, please document in Progress Notes or Discharge Summary. 1. Yes; will document Sepsis due to Covid 19 pneumonia present on admission in the Progress Notes 2. No; will continue to document Covid 19 Pneumonia in the Progress Notes 3. Other; will document explanation of clinical findings 4. Clinically undetermined; no explanation for clinical findings Please remember a lack of response to the above will prompt a phone page by CDI/coding staff. In responding to this query, please exercise your independent professional judgment. The purpose of this communication is to more accurately reflect the complexity of your patients condition. The fact that a question is asked does not imply that any particular answer is desired or expected. Thank you for timely response to this clarification. Carmita Altamirano, MSN, RN RN Specialist-Clinical Doc Improvement CD -Health Info Mgmt Operations [address] [facility] t: [phone] | f: [phone] If you are unable to reach me at my extension, I may be working from home. Please contact me at [phone] PHYSICIAN RESPONSE: Based on the clinical findings in the record, please respond to the query above on this document as an addendum. Physician Response: Physician Response 1 If you have questions please contact: Trekking Guide: Ext: Thank you for your time and cooperation. Clinical Continuity Director/Trekking Guide This is a permanent part of the medical record CARMITA ALTAMIRANO Feb 23, 2020 17:49 GLYNN HOOKS MD Mar 07, 2020 16:50"
[2020-02-23] MEDS: TAMSULOSIN 0.4 MG (FLOMAX) CAP PO SCH (18:42)
[2020-02-23] MEDS: FENOFIBRATE 134 MG (LOFIBRA) CAPSULE PO SCH (20:54)
--- NOTE | 2020-02-23 20:54 | NUR ---
2053 Patient Accucheck resulted with blood glucose level of 447. [phone] Mandel and notified her of result. Orders received to administer 9 units of novolog and switch patient from insulin sliding scale "A" to sliding scale "B".
[2020-02-23] MEDS ORDERED: cefTRIAXone 1,000 MG IV (ROCEPHIN) VIAL ONE (23:00)
--- NOTE | 2020-02-24 00:31 | NUR ---
Patient experienced a moderate nosebleed after blowing nose to clear nares. Patient had a second nosebleed after attempting to "remove a clot" from right nare. This RN contacted Dr Mandel and notified her that patients nose has been bleeding and received orders for saline nasal spray: 1 spray prn.
[2020-02-24] MEDS ORDERED: SALINE NASAL SPRAY (OCEAN) 45 ML BTL ONE (00:37)
[2020-02-24] MEDS ORDERED: SALINE NASAL SPRAY (OCEAN) 45 ML BTL PRN (01:00)
[2020-02-24] MEDS: inSUlin ASPART (NovoLOG) 1 UNIT/0.01 ML (CHARGE PER UNIT) SC SCH ×4 (05:54→21:30)
[2020-02-24] MEDS: AMIODARONE 200 MG (CORDARONE) TAB PO SCH ×2 (05:54→17:31)
[2020-02-24 06:07] LABS: BASOPHILS % (AUTO) 1 % (0-10); EOSINOPHILS % (AUTO) 0 % (0-10); HEMATOCRIT 40 % (40-54); HEMOGLOBIN 12.7 g/dL (13.3-17.7); LYMPHOCYTES # (AUTO) 0.7 10^3/uL (1.0-4.0); LYMPHOCYTES % (AUTO) 10 % (12-44); MEAN CORPUSCULAR HEMOGLOBIN 29 pg (25-34); MEAN CORPUSCULAR HGB CONC 32 g/dL (32-36); MEAN CORPUSCULAR VOLUME 92 fL (80-99); MEAN PLATELET VOLUME 10.6 fL (9.0-12.2); MONOCYTES # (AUTO) 0.5 10^3/uL (0.0-1.0); MONOCYTES % (AUTO) 6 % (0-12); NEUTROPHILS # (AUTO) 5.9 10^3/uL (1.8-7.8); NEUTROPHILS % (AUTO) 77 % (42-75); PLATELET COUNT 235 10^3/uL (130-400); WHITE BLOOD COUNT 7.6 10^3/uL (4.3-11.0)
[2020-02-24 06:21] LABS: ALBUMIN 3.2 GM/DL (3.2-4.5); BILIRUBIN,TOTAL 0.4 MG/DL (0.1-1.0); CALCIUM 8.7 MG/DL (8.5-10.1); CREATININE SERUM 1.94 MG/DL (0.60-1.30); MAGNESIUM 2.2 MG/DL (1.6-2.4); PHOSPHORUS 3.4 MG/DL (2.3-4.7); POTASSIUM 5.1 MMOL/L (3.6-5.0); TOTAL PROTEIN 6.2 GM/DL (6.4-8.2)
[2020-02-24] MEDS: POTASSIUM CL 10MEQ/50ML IVPB 50 ML IV SCH (06:54)
[2020-02-24] MEDS: KCL 20 MEQ TAB (K-DUR) PO SCH (06:55)
[2020-02-24] MEDS: MAGNESIUM 1 GM/100 ML IVPB 100 ML IV SCH (06:55)
[2020-02-24] MEDS ORDERED: metFORMIN 500 MG (GLUCOPHAGE) TAB PO ONE (08:00)
[2020-02-24] MEDS: ASPIRIN E.C. 325 MG (ECOTRIN) TABLET PO SCH (08:10)
[2020-02-24] MEDS: APIXABAN 5 MG (ELIQUIS) TABLET PO SCH ×2 (08:11→21:04)
[2020-02-24] MEDS: PANTOPRAZOLE 40 MG (PROTONIX) TAB PO SCH (08:11)
[2020-02-24] MEDS: CEFDINIR 300 MG (OMNICEF) CAP PO SCH ×2 (08:29→21:04)
[2020-02-24] MEDS: RT-ALBUTEROL INHALER HFA (VENTOLIN HFA) 18 GM IH SCH ×2 (08:39→20:54)
--- NOTE | 2020-02-24 10:20 | NUR ---
PT WAS ON ROOM AIR WHEN RT CAME INTO ROOM. PT WAS AT 87% ON ROOM AIR. PT WAS PLACED ON 2L. PT SATURATION CAME UP TO 92. PT WILL NEED 2L CONTINUOUSLY. Addendum: 02/24/20 at 1022 by HUYEN TONG RT Amended: Links added.
[2020-02-24] MEDS: REMDESIVIR INJ 100 MG in NS (IVPB) 230 ML IV SCH (10:47)
--- NOTE | 2020-02-24 13:04 | Cardiology Progress Note ---
Subjective Date Seen by Provider: Feb 24, 2020 Time Seen by Provider: 12:59 Subjective/Events-last exam Patient complaining of some dyspnea, denies any chest pain. Review of Systems General: No Chills, No Night Sweats, No Fatigue, No Malaise, No Appetite, No Other HEENT: No Head Aches, No Visual Changes, No Eye Pain, No Ear Pain, No Dysphasia, No Sinus Congestion, No Post Nasal Drip, No Sore Throat, No Other Pulmonary: Dyspnea Cardiovascular: No: Chest Pain, Palpitations, Orthopnea, Paroxysmal Noc. Dyspnea, Edema, Lt Headedness, Other Focused Exam Time of Focused Exam: 23:30 Objective-Cardiology Exam Last Set of Vital Signs Vital Signs 02/23/20 02/24/20 16:03 16:27 Temp 36.6 Pulse 101 Resp 17 B/P (MAP) 154/96 Pulse Ox 95 O2 Delivery Nasal Cannula O2 Flow Rate 2.00 FiO2 98 Capillary Refill : Less Than 3 Seconds I&O Intake and Output 02/24/20 00:00 Intake Total 1570 ml Output Total 1320 ml Balance 250 ml Intake Oral 1570 ml Output Urine Total 1320 ml # Voids 1 General: Alert, Oriented X3, Cooperative HEENT: Atraumatic, PERRLA Neck: Supple, No JVD, No Thyromegaly Lungs: Other (diminished breath sounds) Heart: Other (irregularly irregular) Abdomen: Normal Bowel Sounds, Soft Extremities: No Edema Skin: No Rashes, No Significant Lesion Neuro: Cranial Nerves 3-12 NL Psych/Mental Status: Mental Status NL, Mood NL Results Lab Laboratory Tests 02/24/20 05:46 A/P-Cardiology Admission Diagnosis Acute respiratory failure d/t COVID-19 Afib with RVR HTN DM Assessment/Plan Acute respiratory failure d/t COVID-19, improving. Atrial fibrillation with RVR, new onset, Cardizem increase yesterday to 240mg BID, continue on Amiodarone, Eliquis. Acute on chronic renal insufficiency, continue to monitor renal function Hyperkalemia, improving, given kayexelate. Continue to monitor. HTN, continue to monitor HLP, monitor as outpatient DM Anemia, continue to monitor H/H. Patient was seen and evaluated with [place], examination performed, management plan was discussed, agree with the current scribed note, I made few changes to the note using Italic font Patient is laying down in bed, feeling well. No new complaint. Borderline tachycardic Still having some shortness of breath I will continue titrating his medication to achieve adequate heart rate contr olled Clinical Quality Measures DVT/VTE Risk/Contraindication: Risk Factor Score Per Nursin RFS Level Per Nursing on Admit: 4+=Very High SPRING LEE Feb 24, 2020 1:04 pm JENNIFER LINDSEY MD Feb 24, 2020 4:46 pm
--- NOTE | 2020-02-24 13:58 | Progress Note - Hospitalist ---
Subjective HPI/CC On Admission Date Seen by Provider: Feb 24, 2020 Time Seen by Provider: 10:20 Pt is a 74yoCM with a PMH HTN, HLD, NIDDMII who presented to the ER due to confusion. He was tested for COVID on 02/14 and was found to be positive. He became symptomatic roughly 1 week ago with fevers and malaise. He states that yesterday he became confused and his daughter advised him to seek evaluation in the ER. He was febrile on a arrival and reports it was up to 106 at home. He was in a-fib, which is new for him on arrival as well. He did not tolerate cardizem gtt in the ER and was switched to amiodarone gtt. He had nausea and poor oral intake. He had two episodes of diarrhea yesterday. Subjective/Events-last exam he is not having any shortness of breath. He denies fevers. He is not having any chest pain or palpitations. Focused Exam Time of Focused Exam: 23:30 Objective Exam Vital Signs Vital Signs Date Time Temp Pulse Resp B/P (MAP) Pulse Ox O2 Delivery O2 Flow Rate FiO2 02/24/20 11:20 36.6 75 20 140/72 93 Nasal Cannula 2.00 02/23/20 16:03 98 Capillary Refill : Less Than 3 Seconds General Appearance: No Apparent Distress, Obese Respiratory: Lungs Clear, Normal Breath Sounds, No Respiratory Distress Cardiovascular: Irregularly Irregular, Tachycardia Gastrointestinal: Normal Bowel Sounds, Non Tender, Soft Extremity: Normal Inspection, Non Tender, No Pedal Edema Neurologic/Psychiatric: Alert, Oriented x3, No Motor/Sensory Deficits, Normal Mood/Affect Skin: Normal Color, Warm/Dry Results/Procedures Lab Laboratory Tests 02/24/20 05:46 Patient resulted labs reviewed. Imaging: Reviewed Imaging Report Assessment/Plan Assessment and Plan Assess & Plan/Chief Complaint Acute respiratory failure due to COVID-19 Weaning oxygen as able Remdesivir and Decadron s/p 1 unit CP Home O2 evaluation revealed need for 2 L continuously New onset A-fib with RVR Cardiology consulted, appreciate recs Continue amiodarone and Cardizem Eliquis for stroke prophylaxis KING on CKD 3 Hyperkalemia Cr 1.94, improving, appears to be near baseline K 5.1 Low potassium diet HTN trend, BP well controlled T2DM SSI DVT ppx: already receiving therapeutic anticoagulation Hyponatremia, resolved Diagnosis/Problems Diagnosis/Problems (1) Acute respiratory failure due to COVID-19 Status: Acute (2) Pneumonia due to COVID-19 virus Status: Acute (3) Acute renal failure superimposed on chronic kidney disease Status: Acute Qualifiers: Acute renal failure type: unspecified Chronic kidney disease stage: stage 3 (moderate) Qualified Codes: N17.9 - Acute kidney failure, unspecified; N18.3 - Chronic kidney disease, stage 3 (moderate) (4) Hyponatremia Status: Acute (5) Non-insulin dependent diabetes mellitus Status: Acute (6) Obesity Status: Acute Qualifiers: Obesity type: due to excess calories Serious obesity comorbidity presence: with serious comorbidity Body mass index: BMI 39.0-39.9 Clinical Quality Measures DVT/VTE Risk/Contraindication: Risk Factor Score Per Nursin RFS Level Per Nursing on Admit: 4+=Very High GLYNN HOOKS MD Feb 24, 2020 13:58
--- NOTE | 2020-02-24 15:23 | NUR ---
CM DISCHARGE PLANNING: Possible discharge to home tomorrow 02/24 vs. Sunday 02/25 with new oxygen need. Ambulating home o2 study has been completed by RT and patient will need 2LPM via [place] continuous. Talked with patient via phone and he reports that he would like to use [facility] for his oxygen provider. Referral faxed to them and talked with them on the phone. They will deliver the oxygen today for probable discharge tomorrow vs. Saturday. Updated the primary care nurse with the above information.
[2020-02-24] MEDS ORDERED: DILT240C91 PO ×2 (17:14)
[2020-02-24] MEDS ORDERED: APIX5TAB PO ×2 (17:14)
[2020-02-24] MEDS ORDERED: CEFD300C3 PO ×2 (17:14)
[2020-02-24] MEDS ORDERED: AMIO200T6 PO ×2 (17:14)
[2020-02-24] MEDS: metFORMIN 500 MG (GLUCOPHAGE) TAB PO SCH (17:26)
[2020-02-24] MEDS: TAMSULOSIN 0.4 MG (FLOMAX) CAP PO SCH (17:31)
[2020-02-24] MEDS: FENOFIBRATE 134 MG (LOFIBRA) CAPSULE PO SCH (21:04)
[2020-02-25 04:59] LABS: BASOPHILS # (AUTO) 0.1 10^3/uL (0.0-0.1); BASOPHILS % (AUTO) 1 % (0-10); EOSINOPHILS % (AUTO) 0 % (0-10); HEMATOCRIT 40 % (40-54); HEMOGLOBIN 12.8 g/dL (13.3-17.7); LYMPHOCYTES # (AUTO) 0.7 10^3/uL (1.0-4.0); LYMPHOCYTES % (AUTO) 8 % (12-44); MEAN CORPUSCULAR HEMOGLOBIN 29 pg (25-34); MEAN CORPUSCULAR HGB CONC 32 g/dL (32-36); MEAN CORPUSCULAR VOLUME 92 fL (80-99); MEAN PLATELET VOLUME 10.7 fL (9.0-12.2); MONOCYTES # (AUTO) 0.6 10^3/uL (0.0-1.0); MONOCYTES % (AUTO) 6 % (0-12); NEUTROPHILS # (AUTO) 7.2 10^3/uL (1.8-7.8); NEUTROPHILS % (AUTO) 78 % (42-75); PLATELET COUNT 258 10^3/uL (130-400); WHITE BLOOD COUNT 9.2 10^3/uL (4.3-11.0)
[2020-02-25 05:29] LABS: ALBUMIN 3.1 GM/DL (3.2-4.5); POTASSIUM 5.2 MMOL/L (3.6-5.0)
[2020-02-25 05:30] LABS: CALCIUM 8.5 MG/DL (8.5-10.1)
[2020-02-25 05:32] LABS: TOTAL PROTEIN 6.2 GM/DL (6.4-8.2)
[2020-02-25 05:33] LABS: BILIRUBIN,TOTAL 0.5 MG/DL (0.1-1.0)
[2020-02-25] MEDS: KCL 20 MEQ TAB (K-DUR) PO SCH (05:33)
[2020-02-25] MEDS: POTASSIUM CL 10MEQ/50ML IVPB 50 ML IV SCH (05:33)
[2020-02-25 05:35] LABS: CREATININE SERUM 1.98 MG/DL (0.60-1.30); PHOSPHORUS 3.9 MG/DL (2.3-4.7)
[2020-02-25 05:38] LABS: MAGNESIUM 2.2 MG/DL (1.6-2.4)
[2020-02-25] MEDS: MAGNESIUM 1 GM/100 ML IVPB 100 ML IV SCH (05:44)
[2020-02-25] MEDS: metFORMIN 500 MG (GLUCOPHAGE) TAB PO SCH (06:18)
[2020-02-25] MEDS: AMIODARONE 200 MG (CORDARONE) TAB PO SCH (06:18)
[2020-02-25] MEDS: inSUlin ASPART (NovoLOG) 1 UNIT/0.01 ML (CHARGE PER UNIT) SC SCH ×2 (06:20→10:57)
[2020-02-25] MEDS: RT-ALBUTEROL INHALER HFA (VENTOLIN HFA) 18 GM IH SCH (08:46)
[2020-02-25] MEDS: CEFDINIR 300 MG (OMNICEF) CAP PO SCH (08:56)
[2020-02-25] MEDS: REMDESIVIR INJ 100 MG in NS (IVPB) 230 ML IV SCH (08:56)
[2020-02-25] MEDS: PANTOPRAZOLE 40 MG (PROTONIX) TAB PO SCH (08:56)
[2020-02-25] MEDS: APIXABAN 5 MG (ELIQUIS) TABLET PO SCH (08:56)
--- NOTE | 2020-02-25 10:58 | Cardiology Progress Note ---
Subjective Date Seen by Provider: Feb 25, 2020 Time Seen by Provider: 10:57 Subjective/Events-last exam Patient is laying down in bed, feeling better. No new complaint still having some shortness of breath Review of Systems General: No Chills, No Night Sweats, No Fatigue, No Malaise, No Appetite, No Other HEENT: No Head Aches, No Visual Changes, No Eye Pain, No Ear Pain, No Dysphasia, No Sinus Congestion, No Post Nasal Drip, No Sore Throat, No Other Pulmonary: Dyspnea; No Cough, No Pleuritic Chest Pain, No Other Cardiovascular: No: Chest Pain, Palpitations, Orthopnea, Paroxysmal Noc. Dyspnea, Edema, Lt Headedness, Other Focused Exam Time of Focused Exam: 23:30 Objective-Cardiology Exam Last Set of Vital Signs Vital Signs 02/23/20 02/25/20 02/25/20 16:03 08:00 08:47 Temp 34.3 Pulse 105 Resp 18 B/P (MAP) 139/84 Pulse Ox 90 O2 Delivery Nasal Cannula O2 Flow Rate 2.00 FiO2 98 Capillary Refill : Less Than 3 Seconds I&O Intake and Output 02/25/20 00:00 Intake Total 1820 ml Balance 1820 ml Intake Oral 1810 ml IV Total 10 ml # Voids 8 # Urine Diapers 1 # Bowel Movements 1 General: Alert, Oriented X3, Cooperative HEENT: Atraumatic, PERRLA Neck: Supple, No JVD, No Thyromegaly Lungs: Other (diminished breath sounds) Heart: Normal S1, Normal S2, Other (irregularly irregular) Abdomen: Normal Bowel Sounds, Soft Extremities: No Edema Skin: No Rashes, No Significant Lesion Neuro: Cranial Nerves 3-12 NL Psych/Mental Status: Mental Status NL, Mood NL Results Lab Laboratory Tests 02/25/20 04:05 A/P-Cardiology Admission Diagnosis Acute respiratory failure d/t COVID-19 Afib with RVR HTN DM Assessment/Plan Status post acute respiratory failure, better at this time, COVID-19 pneumonia. Managed by primary care team. Atrial fibrillation with RVR, new onset, heart rate is slightly better. Continue on current medication monitor Acute on chronic renal insufficiency, continue to monitor renal function Hyperkalemia, improving, managed by Dr. Evans HTN, continue to monitor HLP, monitor as outpatient DM Anemia, continue to monitor H/H. Clinical Quality Measures DVT/VTE Risk/Contraindication: Risk Factor Score Per Nursin RFS Level Per Nursing on Admit: 4+=Very High JENNIFER LINDSEY MD Feb 25, 2020 10:58 am
--- NOTE | 2020-02-25 12:49 | Discharge Summary ---
Discharge Summary Hospital Course Was the Problem List Reviewed?: Yes Problems/Dx: (1) Acute respiratory failure due to COVID-19 Status: Acute (2) Pneumonia due to COVID-19 virus Status: Acute (3) Acute renal failure superimposed on chronic kidney disease Status: Acute Qualifiers: Qualified Codes: N17.9 - Acute kidney failure, unspecified; N18.3 - Chronic kidney disease, stage 3 (moderate) (4) Hyponatremia Status: Acute (5) Non-insulin dependent diabetes mellitus Status: Acute (6) Obesity Status: Acute Qualifiers: (7) Atrial fibrillation with rapid ventricular response Status: Acute Hospital Course Date of Admission: Feb 20, 2020 at 00:01 Admission Diagnosis : Acute respiratory failure due to COVID-19 Family Physician/Provider: Asim Cohen MD Date of Discharge: 02/25/20 Discharge Diagnosis: Acute respiratory failure due to COVID-19 Hospital Course: Jus Lange is a 74-year-old male who was admitted with acute respiratory failure due to COVID-19. He was treated with a course of Decadron and Remdesivir. He was also given convalescent plasma. He was requiring supple mental oxygen and this improved but did not resolve prior to discharge. Respiratory therapy performed a home oxygen study and he required 2 L continuously. His course was complicated by new-onset atrial fibrillation with rapid ventricular response. Cardiology was consulted and assisted with his care. He was started on the Cardizem and amiodarone. He was also started on Eliquis for stroke prophylaxis. He will follow-up with cardiology as an outpatient. His course was also complicated by superimposed bacterial pneumonia. He was given a course of Omnicef to complete as an outpatient. He should follow-up with his primary care physician in a week or two. Labs and Pending Lab Test: Laboratory Tests 02/24/20 15:43: Glucometer 286H 02/24/20 19:51: Glucometer 294H 02/25/20 04:05: White Blood Count 9.2, Red Blood Count 4.38, Hemoglobin 12.8L, Hematocrit 40, Mean Corpuscular Volume 92, Mean Corpuscular Hemoglobin 29, Mean Corpuscular Hemoglobin Concent 32, Red Cell Distribution Width 14.2, Platelet Count 258, Mean Platelet Volume 10.7, Immature Granulocyte % (Auto) 7, Neutrophils (%) (Auto) 78H, Lymphocytes (%) (Auto) 8L, Monocytes (%) (Auto) 6, Eosinophils (%) ( Auto) 0, Basophils (%) (Auto) 1, Neutrophils # (Auto) 7.2, Lymphocytes # (Auto) 0.7L, Monocytes # (Auto) 0.6, Eosinophils # (Auto) 0.0, Basophils # (Auto) 0.1, Immature Granulocyte # (Auto) 0.7H, Sodium Level 135, Potassium Level 5.2H, Chloride Level 103, Carbon Dioxide Level 22, Anion Gap 10, Blood Urea Nitrogen 50H, Creatinine 1.98H, Estimat Glomerular Filtration Rate 33, BUN/Creatinine Ratio 25, Glucose Level 250H, Calcium Level 8.5, Corrected Calcium 9.2, Phosphorus Level 3.9, Magnesium Level 2.2, Total Bilirubin 0.5, Aspartate Amino Transf (AST/SGOT) 38H, Alanine Aminotransferase (ALT/SGPT) 41, Alkaline Phosp hatase 66, Total Protein 6.2L, Albumin 3.1L 02/25/20 10:46: Glucometer 279H Microbiology 02/20/20 MRSA Screen - Final, Complete MRSA not isolated 02/19/20 Blood Culture - Preliminary, Resulted No growth 02/19/20 Urine Culture - Final, Complete NO GROWTH Home Meds Active Diltiazem 24Hr ER (Diltiazem HCl) 240 Mg Cap.er.24h 240 Mg PO BID 30 Days Amiodarone HCl 200 Mg Tablet 200 Mg PO Q12H 30 Days Eliquis (Apixaban) 5 Mg Tablet 5 Mg PO BID 30 Days Cefdinir 300 Mg Capsule 300 Mg PO BID 5 Days Reported Glucosamine & Chondroitin Cap (Glucosa Jessica 2Kcl/Chondroitin Jessica) 1 Each Capsule 1 Each PO BID Metformin HCl 500 Mg Tablet 500 Mg PO BID Edarbyclor 40-12.5 mg Tablet (Azilsartan Med/Chlorthalidone) 1 Each Tablet 1 Each PO DAILY Vitamin D2 (Ergocalciferol (Vitamin D2)) 1,250 Mcg Capsule 1,250 Mcg PO DAILY Multivitamin 1 Each Tablet 1 Each PO DAILY Aspirin EC (Aspirin) 81 Mg Tablet.dr 81 Mg PO HS Fish Oil 1,000 mg Capsule ([place] 3 Polyunsat Fatty Acids) 1,000 Mg Cap 1,000 Mg PO BID Vitamin C (Ascorbic Acid) 1,000 Mg Tablet 1,000 Mg PO DAILY Vitamin B Complex 1 Each Tablet 1 Each PO DAILY Artificial Tears (Carboxymethylcellulose Sodium) 15 Ml Drops 2 Drops OU BID Allopurinol 100 Mg Tablet 100 Mg PO BID Victoza 3-Ismael (Liraglutide) 0.6 Mg/0.1 Ml Pen.injctr 1.8 Mg SQ DAILY Trilipix (Fenofibric Acid (Choline)) 135 Mg Capsule.dr 135 Mg PO DAILY Flomax (Tamsulosin HCl) 0.4 Mg Cap 0.4 Mg PO DAILY Vytorin 10-80 mg Tablet (Ezetimibe/Simvastatin) 1 Each Tablet 1 Tab PO DAILY Lansoprazole 30 Mg Capsule.dr 30 Mg PO DAILY Assessment/Pt Instructions Take irrigations as prescribed. Complete your course of antibiotics even if you're feeling better. Follow-up with cardiology. Follow-up with your primary care physician. Return with worsening shortness of breath, bleeding, or if you feel like you're getting worse. Discharge Planning: <30 minutes discharge planning Discharge Instructions Discharge Diet: No Restrictions Activity as Tolerated: Yes Discharge Physical Examination Vital Signs Vital Signs Date Time Temp Pulse Resp B/P (MAP) Pulse Ox O2 Delivery O2 Flow Rate FiO2 02/25/20 08:47 90 Nasal Cannula 2.00 02/25/20 08:00 34.3 105 18 139/84 02/23/20 16:03 98 General Appearance: No Apparent Distress, WD/WN Respiratory: Lungs Clear, Normal Breath Sounds, No Respiratory Distress, Other (wearing nasal cannula) Cardiovascular: Irregularly Irregular, Tachycardia Gastrointestinal: Normal Bowel Sounds, Non Tender, Soft Extremity: Normal Inspection, Non Tender, No Pedal Edema Skin: Normal Color, Warm/Dry Neurologic/Psychiatric: Alert, Oriented x3, No Motor/Sensory Deficits, Normal Mood/Affect Allergies: Coded Allergies: No Known Drug Allergies (Verified , 08/13/17) Copy Copies To 1: ASIM COHEN MD Discharge Summary Date of Admission Feb 20, 2020 at 00:01 Date of Discharge Discharge Date: Feb 25, 2020 Discharge Time: 12:45 Admission Diagnosis Acute Respiratory Failure from COVID19 Consults/Procedures Consulations Cardiology Discharge Diagnosis Acute respiratory failure due to COVID-19 (1) Acute respiratory failure due to COVID-19 Status: Acute (2) Pneumonia due to COVID-19 virus Status: Acute (3) Acute renal failure superimposed on chronic kidney disease Status: Acute Qualifiers: Qualified Codes: N17.9 - Acute kidney failure, unspecified; N18.3 - Chronic kidney disease, stage 3 (moderate) (4) Hyponatremia Status: Acute (5) Non-insulin dependent diabetes mellitus Status: Acute (6) Obesity Status: Acute Qualifiers: (7) Atrial fibrillation with rapid ventricular response Status: Acute Clinical Quality Measures DVT/VTE Risk/Contraindication: Risk Factor Score Per Nursin RFS Level Per Nursing on Admit: 4+=Very High GLYNN HOOKS MD Feb 25, 2020 12:49
== END 2020-02-25 13:50 | disposition home or self-care (01) | DRG 871 ==
LOC: EDUNIT# 22:48 → ER 22:50 → ICU 02-20 00:01 → 4TH 02-22 13:39
PROVIDERS: ADMIT Family Medicine; ATTEND Internal Medicine
PROC: XW043E5 Introduction of Remdesivir Anti-infective into Central Vein, Percutaneous Approach, New Technology Group 5 (ICD-10-PCS; principal; 2020-02-20)
PROC: XW14325 Transfusion of Convalescent Plasma (Nonautologous) into Central Vein, Percutaneous Approach, New Technology Group 5 (ICD-10-PCS; 2020-02-20)
DX: A41.9 Sepsis, unspecified organism (principal); U07.1 COVID-19; J96.01 Acute respiratory failure with hypoxia; J12.89 Other viral pneumonia; J15.9 Unspecified bacterial pneumonia; N17.9 Acute kidney failure, unspecified; E87.1 Hypo-osmolality and hyponatremia; E87.2 Acidosis; I12.9 Hypertensive chronic kidney disease with stage 1 through stage 4 chronic kidney disease, or unspecified chronic kidney disease; N18.30 Chronic kidney disease, stage 3 unspecified; I48.91 Unspecified atrial fibrillation; E78.00 Pure hypercholesterolemia, unspecified; E11.9 Type 2 diabetes mellitus without complications; E78.5 Hyperlipidemia, unspecified; G47.30 Sleep apnea, unspecified; K21.9 Gastro-esophageal reflux disease without esophagitis; M19.91 Primary osteoarthritis, unspecified site; M54.9 Dorsalgia, unspecified; E66.9 Obesity, unspecified; R35.0 Frequency of micturition; Z87.891 Personal history of nicotine dependence; Z79.84 Long term (current) use of oral hypoglycemic drugs; Z68.37 Body mass index [BMI] 37.0-37.9, adult; I87.2 Venous insufficiency (chronic) (peripheral); D64.9 Anemia, unspecified
CPT/HCPCS: 36415; 71045; 80048; 80053; 81000; 82550; 82553; 82805; 82962; 83036; 83605; 83735; 83874; 83880; 84100; 84145; 84484; 85007; 85025; 85027; 85379; 85610; 85652; 85730; 86141; 86900; 86901; 87040; 87081; 87088; 87804; 93005; 93041; 94640; 94760; 94761; 96361; 96365; 96367; 96372; 96375; 99291; 99292

== ENCOUNTER → 2020-03-04 | Outpatient (CLI) | payer MEDICARE ==
[~2020-03-04] MED LIST changes: +ALLO100T PO; +AMIO200T6 PO; +APIX5TAB PO; +ASCO100024 PO; +ASPI-1238 PO; +AZIL1TAB3 PO; +CARB-254 OU; +CEFD300C3 PO; +DILT240C91 PO; +ERGO50006 PO; +GLUC1CAP37 PO; +METF-397 PO; +MULT-1136 PO; +OMG1KC PO; +VITA1TAB17 PO
== END ==
LOC: LABNPT 06:02
PROVIDERS: ATTEND Internal Medicine Cardiovascular Disease
DX: Z01.812 Encounter for preprocedural laboratory examination (principal); Z53.9 Procedure and treatment not carried out, unspecified reason
CPT/HCPCS: 87635

== ENCOUNTER 2020-03-14 06:30 | Emergency (ER) | payer MEDICARE ==
[~2020-03-14] VITALS: Ht 167.7 cm; Wt 97.5 kg
[2020-03-14 07:12] LABS: BASOPHILS % (AUTO) 1 % (0-10); EOSINOPHILS # (AUTO) 0.2 10^3/uL (0.0-0.3); EOSINOPHILS % (AUTO) 4 % (0-10); HEMATOCRIT 39 % (40-54); HEMOGLOBIN 12.6 g/dL (13.3-17.7); LYMPHOCYTES # (AUTO) 1.2 10^3/uL (1.0-4.0); LYMPHOCYTES % (AUTO) 32 % (12-44); MEAN CORPUSCULAR HEMOGLOBIN 30 pg (25-34); MEAN CORPUSCULAR HGB CONC 33 g/dL (32-36); MEAN CORPUSCULAR VOLUME 91 fL (80-99); MEAN PLATELET VOLUME 9.6 fL (9.0-12.2); MONOCYTES # (AUTO) 0.3 10^3/uL (0.0-1.0); MONOCYTES % (AUTO) 9 % (0-12); NEUTROPHILS # (AUTO) 2.1 10^3/uL (1.8-7.8); NEUTROPHILS % (AUTO) 54 % (42-75); PLATELET COUNT 140 10^3/uL (130-400); WHITE BLOOD COUNT 3.9 10^3/uL (4.3-11.0)
[2020-03-14 07:19] LABS: ALBUMIN 3.7 GM/DL (3.2-4.5); POTASSIUM 4.1 MMOL/L (3.6-5.0)
[2020-03-14 07:21] LABS: CALCIUM 8.7 MG/DL (8.5-10.1)
[2020-03-14 07:22] LABS: TOTAL PROTEIN 6.2 GM/DL (6.4-8.2)
[2020-03-14 07:23] LABS: INR 1.3 (0.8-1.4); PROTHROMBIN TIME PATIENT 16.2 SEC (12.2-14.7)
[2020-03-14 07:24] LABS: BILIRUBIN,TOTAL 0.4 MG/DL (0.1-1.0)
[2020-03-14 07:25] LABS: CREATININE SERUM 1.82 MG/DL (0.60-1.30)
[2020-03-14 07:28] LABS: MAGNESIUM 1.6 MG/DL (1.6-2.4)
--- NOTE | 2020-03-14 07:50 | Diagnostic Imaging Report ---
EXAM: CHEST 1 VIEW, AP/PA ONLY INDICATION: Chest pain. COMPARISON: Chest radiograph 02/19/2020. FINDINGS: Normal heart size and central pulmonary vascularity. Persistent airspace opacities in both lungs. No pleural effusion or pneumothorax. No acute osseous findings. IMPRESSION: Persistent airspace opacities in both lungs. Dictated by: Dictated on workstation # [id number]
--- NOTE | 2020-03-14 08:01 | NUR ---
DR KAPLAN HERE TO SEE PATIENT
--- NOTE | 2020-03-14 08:30 | ED Cardiac General ---
History of Present Illness General Chief Complaint: Cardiac/General Problems Stated Complaint: IRREGULAR HEART BEAT Nursing Triage Note: PATIENT STATES HE WAS SUPPOSED TO COME TO ER THIS AM PER DR MACKENZIE. Source: patient Exam Limitations: no limitations History of Present Illness Date Seen by Provider: Mar 14, 2020 Time Seen by Provider: 09:30 Initial Comments Patient presents ER by private conveyance from home with chief complaint that he was told to come here by Dr. Mackenzie on Saturday. He says he has not felt well and is still requiring oxygen after being admitted to the hospital for pneumonia and Covid and discharged on . He is not having fevers or productive cough anymore. He did not require oxygen prior to this. He has new onset atrial fibrillation and is on maxed out diltiazem, as well as metoprolol and amiodarone and Eliquis. Dr. Mackenzie is his pole shaver helper. He said Dr. Jones asked us to speak to him when he arrived. The plan was to get him set up and do a cardioversion however Dr. Mackenzie reveals no beds are available so he cannot do this elective cardioversion at this time. Dr. Mackenzie did come down and visit with the patient and feels that he is looking much better than the last time he saw him and says that this represents significant clinical improvement. He does not want to change any of his medications and from a rate control standpoint he is okay with allowing the patient to discharge home. The rate is in the 90s. The patient is not having any chest pain nausea fever sweats vomiting diarrhea or constipation. Allergies and Home Medications Allergies Coded Allergies: No Known Drug Allergies (Verified , 03/14/20) Home Medications Allopurinol 100 Mg Tablet, 100 MG PO BID, (Reported) Amiodarone HCl 200 Mg Tablet, 200 MG PO Q12H Prescribed by: GLYNN HOOKS on 02/24/201713 Apixaban 5 Mg Tablet, 5 MG PO BID Prescribed by: GLYNN HOOKS on 02/24/201713 Ascorbic Acid 1,000 Mg Tablet, 1,000 MG PO DAILY, (Reported) Aspirin 81 Mg Tablet., 81 MG PO HS, (Reported) Azilsartan Med/Chlorthalidone 1 Each Tablet, 1 EACH PO DAILY, (Reported) Carboxymethylcellulose Sodium 15 Ml Drops, 2 DROPS OU BID, (Reported) Cefdinir 300 Mg Capsule, 300 MG PO BID Prescribed by: GLYNN HOOKS on 02/24/201713 Diltiazem HCl 240 Mg Cap.er.24h, 240 MG PO BID Prescribed by: GLYNN HOOKS on 02/24/201713 Ergocalciferol (Vitamin D2) 1,250 Mcg Capsule, 1,250 MCG PO DAILY, (Reported) Ezetimibe/Simvastatin 1 Each Tablet, 1 TAB PO DAILY, (Reported) Fenofibric Acid (Choline) 135 Mg Capsule.dr, 135 MG PO DAILY, (Reported) Glucosa Jessica 2Kcl/Chondroitin Jessica 1 Each Capsule, 1 EACH PO BID, (Reported) Lansoprazole 30 Mg Capsule.dr, 30 MG PO DAILY, (Reported) Liraglutide 0.6 Mg/0.1 Ml Pen.injctr, 1.8 MG SQ DAILY, (Reported) Metformin HCl 500 Mg Tablet, 500 MG PO BID, (Reported) Multivitamin 1 Each Tablet, 1 EACH PO DAILY, (Reported) [place] 3 Polyunsat Fatty Acids 1,000 Mg Cap, 1,000 MG PO BID, (Reported) Tamsulosin HCl 0.4 Mg Cap, 0.4 MG PO DAILY, (Reported) Vitamin B Complex 1 Each Tablet, 1 EACH PO DAILY, (Reported) Patient Home Medication List Home Medication List Reviewed: Yes Review of Systems Review of Systems Constitutional: No chills, No diaphoresis EENTM: No Blurred Vision, No Double Vision Respiratory: Cough (Occasional); Denies Shortness of Air; SOA With Exertion Cardiovascular: See HPI; Denies Chest Pain; Irregular Heart Rate; Denies Lightheadedness Gastrointestinal: Denies Constipated, Denies Diarrhea, Denies Difficulty Swallowing Genitourinary: Denies Burning, Denies Discharge, Denies Drainage Musculoskeletal: No back pain, No joint pain All Other Systems Reviewed Negative Unless Noted: Yes Past Dzmhitj-Eqqpwi-Nqzriy Hx Patient Social History Alcohol Use: Denies Use Recreational Drug Use: No Former Smoker, Quit: Apr 02, 1994 Recent Foreign Travel: No Contact w/Someone Who Travel: No Recent Infectious Disease Expo: No Recent Hopitalizations: No Physical Abuse: No Sexual Abuse: No Mistreated: No Fear: No Immunizations Up To Date Tetanus Booster (TDap): Unknown PED Vaccines UTD: No Date of Pneumonia Vaccine: Feb 03, 2015 Seasonal Allergies Seasonal Allergies: No Past Medical History Surgeries: Yes (ING HERNIA;BILAT KNEE SCOPES & TKR;GOITER;LIPOMAS;SKIN LESIONS;EGD/C-SCOPE ) Abdominal, Joint Replacement, Orthopedic Respiratory: Yes (USES CPAP) Sleep Apnea Currently Using CPAP: Yes Currently Using BIPAP: No Cardiac: Yes High Cholesterol, Hypertension Neurological: No Reproductive Disorders: No Sexually Transmitted Disease: No HIV/AIDS: No Genitourinary: Yes (URINARY FREQUENCY; RENAL INSUFFICIENCY) Gastrointestinal: Yes (RECTAL POLYPECTOMY; DIVERTICULAR DZ NOTED ON COLONOSCOPY;GASTRITIS) Gastroesophageal Reflux, Diverticulosis, Hemorrhoids, Polyps Musculoskeletal: Yes (OSTEOARTHRITIS;BILAT KNEE SCOPES AND BILAT TKR) Degenerate Disk Disease, Arthritis, Chronic Back Pain Endocrine: Yes (GOITER REMOVED) Diabetes, Non-Insulin dep HEENT: Yes (GLASSES, BEGINING OF CATARACTS) Cataract Loss of Vision: Bilateral Hearing Impairment: Denies Cancer: Yes (PRE-SKIN CANCER REMOVAL) Skin Did You Recieve Any Treatments: Yes What Type of Treatment Did You: Surgical Intervention Psychosocial: No Integumentary: Yes (PRECANCEROUS SKIN LESIONS; LIPOMAS) Blood Disorders: No Adverse Reaction/Blood Tranf: No Family Medical History Alcoholism 19 FATHER G8 BROTHER Drug abuse G8 BROTHER No Family History of: AIDS Alzheimer's disease Arthritis Asthma Cancer of mouth Cardiovascular disease Colon cancer Completed stroke Dementia Diabetes mellitus Hypertension Kidney disease Myocardial infarction Parkinson's disease Prostate cancer Psychosocial problem Respiratory disorder Seizure disorder Severe allergy Thyroid disease Tuberculosis Other Conditions/Hx Physical Exam Vital Signs Vital Signs - First Documented 03/14/20 03/14/20 06:35 09:00 Temp 36.6 Pulse 101 Resp 20 B/P (MAP) 156/84 (108) Pulse Ox 96 O2 Delivery Room Air Capillary Refill : Less Than 3 Seconds Height, Weight, BMI Height: 5'6.00" Weight: 233lbs. 0.0oz. 105.386714qe; 34.00 BMI Method:Stated General Appearance: No Apparent Distress, WD/WN HEENT: PERRL/EOMI, Pharynx Normal, Moist Mucous Membranes Neck: Full Range of Motion, Normal Inspection Respiratory: Lungs Clear, Normal Breath Sounds, No Accessory Muscle Use, No Respiratory Distress Cardiovascular: Regular Rate, Rhythm, No Edema, Normal Peripheral Pulses Gastrointestinal: Normal Bowel Sounds, Non Tender, Soft Extremity: Normal Capillary Refill, Normal Inspection, No Pedal Edema Neurologic/Psychiatric: Alert, Oriented x3, No Motor/Sensory Deficits Skin: Normal Color, Warm/Dry Progress/Results/Core Measures Results/Orders Lab Results Laboratory Tests Test 03/14/20 07:07 Range/Units White Blood Count 3.9 L 4.3-11.0 10^3/uL Red Blood Count 4.24 L 4.30-5.52 10^6/uL Hemoglobin 12.6 L 13.3-17.7 g/dL Hematocrit 39 L 40-54 % Mean Corpuscular Volume 91 80-99 fL Mean Corpuscular Hemoglobin 30 25-34 pg Mean Corpuscular Hemoglobin Concent 33 32-36 g/dL Red Cell Distribution Width 15.0 H 10.0-14.5 % Platelet Count 140 130-400 10^3/uL Mean Platelet Volume 9.6 9.0-12.2 fL Immature Granulocyte % (Auto) 1 % Neutrophils (%) (Auto) 54 42-75 % Lymphocytes (%) (Auto) 32 12-44 % Monocytes (%) (Auto) 9 0-12 % Eosinophils (%) (Auto) 4 0-10 % Basophils (%) (Auto) 1 0-10 % Neutrophils # (Auto) 2.1 1.8-7.8 10^3/uL Lymphocytes # (Auto) 1.2 1.0-4.0 10^3/uL Monocytes # (Auto) 0.3 0.0-1.0 10^3/uL Eosinophils # (Auto) 0.2 0.0-0.3 10^3/uL Basophils # (Auto) 0.0 0.0-0.1 10^3/uL Immature Granulocyte # (Auto) 0.0 0.0-0.1 10^3/uL Prothrombin Time 16.2 H 12.2-14.7 SEC INR Comment 1.3 0.8-1.4 Activated Partial Thromboplast Time 33 24-35 SEC Sodium Level 141 135-145 MMOL/L Potassium Level 4.1 3.6-5.0 MMOL/L Chloride Level 110 H 98-107 MMOL/L Carbon Dioxide Level 19 L 21-32 MMOL/L Anion Gap 12 5-14 MMOL/L Blood Urea Nitrogen 23 H 7-18 MG/DL Creatinine 1.82 H 0.60-1.30 MG/DL Estimat Glomerular Filtration Rate 37 BUN/Creatinine Ratio 13 Glucose Level 191 H 70-105 MG/DL Calcium Level 8.7 8.5-10.1 MG/DL Corrected Calcium 8.9 8.5-10.1 MG/DL Magnesium Level 1.6 1.6-2.4 MG/DL Total Bilirubin 0.4 0.1-1.0 MG/DL Aspartate Amino Transf (AST/SGOT) 18 5-34 U/L Alanine Aminotransferase (ALT/SGPT) 24 0-55 U/L Alkaline Phosphatase 45 40-136 U/L Myoglobin 86.1 10.0-92.0 NG/ML Troponin I < 0.028 <0.028 NG/ML Total Protein 6.2 L 6.4-8.2 GM/DL Albumin 3.7 3.2-4.5 GM/DL My Orders Orders - CARMEL ABDI Cbc With Automated Diff (03/14/20 07:04) Magnesium (03/14/20 07:04) Chest 1 View, Ap/Pa Only (03/14/20 07:04) Ekg Tracing (03/14/20 07:04) Comprehensive Metabolic Panel (03/14/20 07:04) Myoglobin Serum (03/14/20 07:04) Protime With Inr (03/14/20 07:04) Partial Thromboplastin Time (03/14/20 07:04) O2 (03/14/20 07:04) Monitor-Rhythm Ecg Trace Only (03/14/20 07:04) Ed Iv/Invasive Line Start (03/14/20 07:04) Troponin I (03/14/20 07:04) Vital Signs/I&O 03/14/20 03/14/20 03/14/20 06:35 09:00 09:32 Temp 36.6 Pulse 101 85 95 Resp 20 18 18 B/P (MAP) 156/84 (108) 112/79 (90) 121/87 Pulse Ox 96 95 95 O2 Delivery Room Air Room Air Blood Pressure Mean: 108 Progress Progress Note : Time: 09:[address] Jones has visited with the patient. We reviewed his x-ray and it is significantly improved from the previous x-ray on 02/19/2020. Patient says he feels great. His heart rate is in a controlled rate of 90-100. Dr. Sprague does not want to change any of his medications. He wants to follow him up in the clinic and eventually do cardioversion. Initial ECG Impression Date: Mar 14, 2020 Initial ECG Impression Time: 06:39 Initial ECG Rate: 104 Initial ECG Rhythm: A Fib/Flutter Initial ECG Intervals: QT (441) Initial ECG Impression: Atrial Fibrillation Initial ECG Comparisson: Unchanged Comment Atrial fibrillation Diagnostic Imaging Diagonstic Imaging: Xray Plain Films/CT/US/NM/MRI: chest Comments Improved infiltrates compared to 02/19/2020. [facility] [place], [place] NAME: TAMIKA TOLEDO [facility] REC#: [id number] PT STATUS: REG ER : 1945 PHYSICIAN: CARMEL ABDI MD ADMIT DATE: 03/14/20/ER Draft Date of Exam:03/14/20 CHEST 1 VIEW, AP/PA ONLY EXAM: CHEST 1 VIEW, AP/PA ONLY INDICATION: Chest pain. COMPARISON: Chest radiograph 02/19/2020. FINDINGS: Normal heart size and central pulmonary vascularity. Persistent airspace opacities in both lungs. No pleural effusion or pneumothorax. No acute osseous findings. IMPRESSION: Persistent airspace opacities in both lungs. Dictated on workstation # [id number] Dict: 03/14/20 0748 Trans: 03/14/[address] [facility] [phone] Interpreted by: TARIK BELL MD Electronically signed by: Reviewed: Reviewed by Me Departure Impression Primary Impression: Atrial fibrillation Qualified Codes: I48.19 - Other persistent atrial fibrillation Disposition: 01 HOME, SELF-CARE Condition: Stable Departure-Patient Inst. Decision time for Depature: 09:21 Referrals: JENNIFER MACKENZIE MD, JOHN D MD (PCP/Family) Primary Care Physician Patient Instructions: Atrial Fibrillation Add. Discharge Instructions: Plan to follow-up with Dr. Mackenzie in the clinic and eventually work towards a cardioversion. Discussed your blood pressure medications with Dr. Moeller. Continue take your medications as prescribed. Return to the ER for chest pain, worsening shortness of breath. It is okay to continue using the oxygen when you feel short of breath or to sleep at night if you want to. All discharge instructions reviewed with patient and/or family. Voiced understanding. CARMEL ABDI Mar 14, 2020 08:30
--- NOTE | 2020-03-14 09:07 | NUR ---
TO ROOM CON'T TO HAVE NO C/O
[2020-03-14 09:32] VITALS: BP 121/87
== END 2020-03-14 09:41 | disposition home or self-care (01) ==
LOC: EDUNIT# 06:30 → ER 06:33
DX: I48.91 Unspecified atrial fibrillation (principal); E78.00 Pure hypercholesterolemia, unspecified; E11.9 Type 2 diabetes mellitus without complications; K21.9 Gastro-esophageal reflux disease without esophagitis; I10 Essential (primary) hypertension; Z85.828 Personal history of other malignant neoplasm of skin; Z87.891 Personal history of nicotine dependence; Z79.84 Long term (current) use of oral hypoglycemic drugs; Z79.01 Long term (current) use of anticoagulants; Z79.82 Long term (current) use of aspirin
CPT/HCPCS: 36415; 71045; 80053; 83735; 83874; 84484; 85025; 85610; 85730; 93005; 93041

== ENCOUNTER → 2020-04-12 | Outpatient (CLI) | payer MEDICARE ==
[~2020-04-12] MED LIST changes: +RT-ALBUTEROL SULF 2.5 MG/3 ML PRE-MIX VIAL INH ONE
--- NOTE | 2020-04-12 15:22 | Diagnostic Imaging Report ---
EXAMINATION: CT Chest without contrast. TECHNIQUE: Multiple contiguous axial images were obtained through the chest without the use of intravenous contrast. All CT scans use one or more of the following dose optimizing techniques: automated exposure control, MA and/or KvP adjustment based on a patient size and exam type, or iterative reconstruction. HISTORY: Recent COVID-19. COMPARISON: None available. FINDINGS: There are scattered mild areas of groundglass throughout both lungs with a few areas of reticulation. No bronchial dilation. No consolidation. No pleural effusion. No pneumothorax. No suspicious nodules. There is no axillary or supraclavicular lymphadenopathy. There is no mediastinal lymphadenopathy. Heart size is normal. There are moderate coronary artery calcifications. No pericardial effusion. Aorta is normal in caliber. Limited views of the upper abdomen are unremarkable. There are no suspicious osseous lesions. IMPRESSION: 1. Scattered mild areas of vague groundglass throughout both lungs with areas of reticulation, consistent with resolving inflammation from COVID-19. Further follow-up will be required to determine how much remains as fibrosis. Dictated by: Dictated on workstation # [id number]
== END ==
LOC: RT 14:13
PROVIDERS: ATTEND Internal Medicine Critical Care Medicine
DX: Z13.83 Encounter for screening for respiratory disorder NEC (principal); R91.8 Other nonspecific abnormal finding of lung field; R06.00 Dyspnea, unspecified
CPT/HCPCS: 71250; 94060; 94726; 94729

== ENCOUNTER → 2020-04-20 | Day surgery (SDC) | payer MEDICARE ==
[~2020-04-20] MED LIST changes: +LIDOCAINE 2% VISCOUS 15 ML UDC ONE; +LIDOCAINE 2% VISCOUS 15 ML UDC PO ONE; +NS IV 1000 ML 0 ML ONE; +NS IV 1000 ML 1,000 ML IV SCH; -RT-ALBUTEROL SULF 2.5 MG/3 ML PRE-MIX VIAL INH ONE
--- NOTE | 2020-04-20 08:20 | NUR ---
SPOKE TO PT, EKG REVEALED SR, PROCEDURE ABORTED. AMB ON DC
--- NOTE | 2020-04-20 08:37 | Diagnostic Imaging Report ---
CHEST 1 VIEW, AP/PA ONLY Indication: Preprocedural workup for transesophageal echocardiogram Comparison: 03/14/2020 Findings: Bibasilar heterogeneous consolidations have improved. There do remain some areas of architectural distortion and scarring in the lower lung zones. No pleural effusion or pneumothorax. Normal cardiomediastinal silhouette. Impression: 1. No acute cardiopulmonary process by portable radiography. Dictated by: Dictated on workstation # [id number]
== END ==
LOC: CATH 07:19
PROVIDERS: ATTEND Internal Medicine Cardiovascular Disease
DX: I48.91 Unspecified atrial fibrillation (principal); Z53.9 Procedure and treatment not carried out, unspecified reason
CPT/HCPCS: 71045; 93005

== ENCOUNTER → 2020-05-18 | Outpatient (CLI) | payer MEDICARE ==
[~2020-05-18] VITALS: Ht 167 cm; Wt 102.0 kg
[~2020-05-18] MED LIST changes: +CATHETER FLUSH 10 ML SYR IV PRN; -LIDOCAINE 2% VISCOUS 15 ML UDC ONE; -LIDOCAINE 2% VISCOUS 15 ML UDC PO ONE; -NS IV 1000 ML 0 ML ONE; -NS IV 1000 ML 1,000 ML IV SCH; +REGADENOSON 0.4 MG/5 ML SYR (LEXISCAN) IV ONE
[2020-05-18 13:03] VITALS: BP 180/92
--- NOTE | 2020-05-19 08:41 | Cardiology Stress Test Report ---
Stress Test Report Date of Procedure/Referring: Date of Procedure: May 18, 2020 [place] Admitting Physician Brayden Moeller MD Indications: Chest pain Baseline Heart Rate: 85 Baseline Blood Pressure: Blood Pressure Systolic: 180 Blood Pressure Diastolic: 92 Baseline Vitals Vital Signs Date Time Temp Pulse Resp B/P (MAP) Pulse Ox O2 Delivery O2 Flow Rate FiO2 05/18/20 13:03 115 18 180/92 (121) 99 Room Air Baseline EKG: Baseline EKG: normal sinus rhythm Summary After explaining the procedure to the patient, he signed a consent and then brought to the stress nuclear laboratory. Patient received 0.4 mg Lexiscan for stress test, ECG, heart rate and blood pressure were monitored continuously. Resting and stress dose of radio tracer were injected, imaging was acquired and reviewed in short axis, horizontal long axis and vertical long axis views. TID: 0.97 SSS: 0 SDS: 0 EF: 54 1. Patient tolerated Lexiscan well 2. No significant ischemia or infarction on SPECT images 3. Normal left ventricular size, EF 54 percent JENNIFER LINDSEY MD May 19, 2020 08:41
== END ==
LOC: CARD 11:00
PROVIDERS: ATTEND Physician Assistant
DX: I11.9 Hypertensive heart disease without heart failure (principal); I35.8 Other nonrheumatic aortic valve disorders; I35.0 Nonrheumatic aortic (valve) stenosis
CPT/HCPCS: 78452; 93017; 93306; A9502

== ENCOUNTER → 2020-07-11 | Outpatient (CLI) | payer MEDICARE ==
[~2020-07-11] MED LIST changes: -CATHETER FLUSH 10 ML SYR IV PRN; -REGADENOSON 0.4 MG/5 ML SYR (LEXISCAN) IV ONE
--- NOTE | 2020-07-11 12:50 | Diagnostic Imaging Report ---
EXAMINATION: CT Chest without contrast. TECHNIQUE: Multiple contiguous axial images were obtained through the chest without the use of intravenous contrast. All CT scans use one or more of the following dose optimizing techniques: automated exposure control, MA and/or KvP adjustment based on a patient size and exam type, or iterative reconstruction. HISTORY: ABNORMAL FINDINGS ON DX IMAGING OF LUNG COMPARISON: Chest radiograph 04/20/2020, CT chest 04/12/2020. FINDINGS: Thyroid: The thyroid is normal. Mediastinum: Heart size is normal without significant pericardial effusion. Calcifications of the aorta and coronary vessels. Thoracic aorta is normal in caliber. No suspicious lymphadenopathy. Lungs and airways: There are minimal groundglass opacities or scarring within the anterior right middle and left upper lobes. Overall, the groundglass opacities have significantly and near completely resolved compared to 04/12/2020. There is no new consolidation, pleural effusion, or pneumothorax. No new suspicious pulmonary nodule. The airways are normal. Upper abdomen: Diffuse hypoattenuation of the liver compatible with hepatic steatosis. Musculoskeletal: Degenerative changes of the spine without suspicious osseous lesion or compression fracture. IMPRESSION: 1. Near complete resolution of the groundglass opacities seen on prior CT of 04/12/2020. There is minimal anterior groundglass scarring within the right middle and left upper lobes. 2. No new acute abnormality in the chest. 3. Hepatic steatosis. Dictated by: Dictated on workstation # [id number]
== END ==
LOC: RAD 12:45
PROVIDERS: ATTEND Nurse Practitioner Family
DX: R91.8 Other nonspecific abnormal finding of lung field (principal); K76.0 Fatty (change of) liver, not elsewhere classified
CPT/HCPCS: 71250

== ENCOUNTER → 2021-02-28 | Outpatient (CLI) | payer MEDICARE ==
[~2021-02-28] MED LIST changes: -AMIO200T6 PO; +AMIO200T65 PO; +ERGO1250 PO; -ERGO50006 PO; +GADOTERATE 0.5 MMOL/ML (CLARISCAN) 20 ML VIAL IV ONE
--- NOTE | 2021-02-28 10:55 | Diagnostic Imaging Report ---
PROCEDURE: MR imaging of the brain with and without contrast. TECHNIQUE: Multiplanar, multisequence MR imaging of the brain was performed with and without contrast. INDICATION: Possible left optic nerve swelling. COMPARISON: 08/30/2015. FINDINGS: No acute ischemia or hemorrhage. A small extra-axial area of enhancement is seen overlying the right parietal region measuring 0.5 x 0.5 cm. No associated edema is seen. The ventricles, cortical sulci, and basilar cisterns are symmetric and unremarkable. The sellar and suprasellar regions have a normal appearance. No fluid collection or mass is seen in the globes and orbits. No abnormal enhancement is seen. The extraocular muscles are symmetric and unremarkable. The globes are intact bilaterally. No abnormal enhancement is seen along the course of the optic nerves. The brainstem and posterior fossa are unremarkable. Retained secretions are seen in the bilateral maxillary sinuses, right greater than left. Small left-sided mastoid effusion is seen. The scalp and calvarium have a normal appearance. IMPRESSION: 1. Unremarkable appearance of the globes and orbits. No evidence of optic neuritis or post septal mass. Recommend continued follow-up as indicated. 2. No acute ischemia or hemorrhage. 3. Tiny meningioma overlying the right parietal region. No associated edema or mass effect. 4. Paranasal sinus disease involving the bilateral maxillary sinuses. Dictated by: Dictated on workstation # [id number]
== END ==
LOC: RAD 08:45
PROVIDERS: ATTEND Internal Medicine
DX: J32.0 Chronic maxillary sinusitis (principal)
CPT/HCPCS: 70553

== ENCOUNTER 2021-05-26 11:08 | Inpatient (IN) | payer MEDICARE ==
[~2021-05-26] VITALS: Ht 167.6 cm; Wt 108.9 kg
[2021-05-26] VITALS (9 sets, daily range): BP systolic 113–165; BP diastolic 55–68
[~2021-05-26 11:08] MED LIST changes: -AMIO200T50 PO; -C,E,1CAP PO; -CHOL10007 PO; -EMPA25TA PO; -EZET-61 PO; -LOSA100T57 PO; -METO50TA7 PO; -PANT40TA52 PO; -RIVA20TA2 PO
--- NOTE | 2021-05-26 11:14 | ED General ---
General Stated Complaint: LOW HEMOGLOBIN Source of Information: Patient Exam Limitations: No Limitations History of Present Illness Date Seen by Provider: May 26, 2021 Time Seen by Provider: 11:12 Initial Comments To ER by private vehicle from outpatient department with reports of anemia. He presented to Dr. Cohen's office where he was seen by nurse practitioner Heather POWELL with reports of shortness of breath and lightheadedness upon standing. He had an EKG done which was normal and then went for labs which showed a hemoglobin of 5.9 hematocrit 21. Platelet count 182. He has had some dark stools. He is on Xarelto for history of atrial fibrillation. Timing/Duration: 2-3 Days Severity: Moderate Associated Systoms: Weakness Allergies and Home Medications Allergies Coded Allergies: No Known Drug Allergies (Verified , 03/14/20) Patient Home Medication List Home Medication List Reviewed: Yes Allopurinol (Allopurinol) 100 Mg Tablet, 200 MG PO HS, (Reported) Entered as Reported by: HESHAM VIGIL on 02/20/20 0956 Last Action: Reviewed Amiodarone HCl (Pacerone) 200 Mg Tablet, 200 MG PO BID, (Reported) Entered as Reported by: JAZMIN ANDERSON on 05/26/211457 Last Action: Reviewed Ascorbic Acid (Vitamin C) 1,000 Mg Tablet, 1,000 MG PO DAILY, (Reported) Entered as Reported by: DAVE RECIO on 02/22/20 1141 Last Action: Reviewed C,E,Zinc,Copper 11/Nsttm5y/Lut (Ocuvite Adult 50 Plus Softgel) 1 Each Capsule, 1 EACH PO DAILY, (Reported) Entered as Reported by: JAZMIN ANDERSON on 05/26/211458 Last Action: Reviewed Cholecalciferol (Vitamin D3) (Vitamin D3) 25 Mcg Capsule, 25 MCG PO DAILY, (Reported) Entered as Reported by: JAZMIN ANDERSON on 05/26/211457 Last Action: Reviewed Diltiazem HCl (Diltiazem 24Hr ER) 240 Mg Cap.er.24h, 240 MG PO BID, (Reported) Entered as Reported by: JAZMIN ANDERSON on 05/26/211457 Last Action: Reviewed Empagliflozin (Jardiance) 25 Mg Tablet, 12.5 MG PO HS, (Reported) Entered as Reported by: JAZMIN ANDERSON on 05/26/211457 Last Action: Reviewed Ezetimibe/Simvastatin (Ezetimibe-Simvastatin 10-80 mg) 1 Each Tablet, 1 EA PO DAILY, (Reported) Entered as Reported by: JAZMIN ANDERSON on 05/26/211457 Last Action: Reviewed Fenofibric Acid (Choline) (Fenofibric Acid) 135 Mg Capsule.dr, 135 MG PO DAILY, (Reported) Entered as Reported by: JAZMIN ANDERSON on 05/26/211457 Last Action: Reviewed Lansoprazole (Lansoprazole) 30 Mg Capsule.dr, 30 MG PO DAILY, (Reported) Entered as Reported by: ADAMS MOORE on 08/30/15 1029 Last Action: Reviewed Losartan Potassium (Losartan Potassium) 100 Mg Tablet, 100 MG PO DAILY, (Reported) Entered as Reported by: JAZMIN ANDERSON on 05/26/211457 Last Action: Reviewed Metformin HCl (Metformin HCl) 500 Mg Tablet, 500 MG PO BID, (Reported) Entered as Reported by: DAVE RECIO on 02/22/20 114 Last Action: Reviewed Metoprolol Succinate (Metoprolol Succinate) 50 Mg Tab.er.24h, 50 MG PO HS, (Reported) Entered as Reported by: JAZMIN ANDERSON on 05/26/211457 Last Action: Reviewed Multivitamin (Multivitamin) 1 Each Tablet, 1 EACH PO DAILY, (Reported) Entered as Reported by: DAVE RECIO on 02/22/201140 Last Action: Reviewed Buckhorn 3 Polyunsat Fatty Acids (Fish Oil 1,000 mg Capsule) 1,000 Mg Cap, 1,000 MG PO BID, (Reported) Entered as Reported by: DAVE RECIO on 02/22/201140 Last Action: Reviewed Rivaroxaban (Xarelto Tablet) 20 Mg Tablet, 20 MG PO HS, (Reported) Entered as Reported by: JAZMIN ANDERSON on 05/26/21 1500 Last Action: Reviewed Tamsulosin HCl (Flomax) 0.4 Mg Cap, 0.4 MG PO HS, (Reported) Entered as Reported by: JAZMIN ANDERSON on 05/26/211457 Last Action: Reviewed Discontinued Medications Amiodarone HCl (Amiodarone HCl) 200 Mg Tablet, 200 MG PO Q12H Discontinued Reason: Duplicate Order Prescribed by: GLYNN HOOKS on 02/24/201713 Last Action: Discontinued Apixaban (Eliquis) 5 Mg Tablet, 5 MG PO BID Discontinued Reason: No Longer Taking Prescribed by: GLYNN HOOKS on 02/24/201713 Last Action: Discontinued Aspirin (Aspirin EC) 81 Mg Tablet., 81 MG PO HS, (Reported) Discontinued Reason: No Longer Taking Entered as Reported by: DAVE RECIO on 02/22/201140 Last Action: Discontinued Azilsartan Med/Chlorthalidone (Edarbyclor 40-12.5 mg Tablet) 1 Each Tablet, 1 EACH PO DAILY, (Reported) Discontinued Reason: No Longer Taking Entered as Reported by: DAVE RECIO on 02/22/201140 Last Action: Discontinued Carboxymethylcellulose Sodium (Artificial Tears) 15 Ml Drops, 2 DROPS OU BID, (Reported) Discontinued Reason: No Longer Taking Entered as Reported by: DAVE RECIO on 02/22/201140 Last Action: Discontinued Cefdinir (Cefdinir) 300 Mg Capsule, 300 MG PO BID Discontinued Reason: No Longer Taking Prescribed by: GLYNN HOOKS on 02/24/201713 Last Action: Discontinued Diltiazem HCl (Diltiazem 24Hr ER) 240 Mg Cap.er.24h, 240 MG PO BID Discontinued Reason: Duplicate Order Prescribed by: GLYNN HOOKS on 02/24/201713 Last Action: Discontinued Ergocalciferol (Vitamin D2) (Vitamin D2) 1,250 Mcg Capsule, 1,250 MCG PO DAILY, (Reported) Discontinued Reason: Prescription changed Entered as Reported by: DAVE RECIO on 02/22/201140 Ezetimibe/Simvastatin (Vytorin 10-80 mg Tablet) 1 Each Tablet, 1 TAB PO DAILY, (Reported) Discontinued Reason: No Longer Taking Entered as Reported by: ADAMS MOORE on 08/30/15 1029 Last Action: Discontinued Fenofibric Acid (Choline) (Trilipix) 135 Mg Capsule., 135 MG PO DAILY, (Reported) Discontinued Reason: Duplicate Order Entered as Reported by: JYOTI ADAME on 11/21/16 1014 Last Action: Discontinued Glucosa Jessica 2Kcl/Chondroitin Jessica (Glucosamine & Chondroitin Cap) 1 Each Capsule, 1 EACH PO BID, (Reported) Discontinued Reason: No Longer Taking Entered as Reported by: DAVE RECIO on 02/22/20 1147 Last Action: Discontinued Tamsulosin HCl (Flomax) 0.4 Mg Cap, 0.4 MG PO DAILY, (Reported) Discontinued Reason: Duplicate Order Entered as Reported by: JYOTI ADAME on 11/21/16 1014 Last Action: Discontinued Vitamin B Complex (Vitamin B Complex) 1 Each Tablet, 1 EACH PO DAILY, (Reported) Discontinued Reason: Duplicate Order Entered as Reported by: DAVE RECIO on 02/22/20 1141 Last Action: Discontinued Review of Systems Review of Systems Constitutional: see HPI; No chills, No fever EENTM: see HPI Respiratory: see HPI, short of breath Cardiovascular: no symptoms reported; No chest pain Gastrointestinal: melena Genitourinary: no symptoms reported Musculoskeletal: no symptoms reported Skin: no symptoms reported Psychiatric/Neurological: No Symptoms Reported Hematologic/Lymphatic: No Symptoms Reported Immunological/Allergic: no symptoms reported Past Dlcbrjp-Hsovdr-Yzqrbq Hx Immunizations Up To Date Tetanus Booster (TDap): Unknown PED Vaccines UTD: No Seasonal Allergies Seasonal Allergies: No Past Medical History Surgeries: Yes (ING HERNIA;BILAT KNEE SCOPES & TKR;GOITER;LIPOMAS;SKIN LESIONS;EGD/C-SCOPE ) Abdominal, Joint Replacement, Orthopedic Respiratory: Yes (USES CPAP) Sleep Apnea Currently Using CPAP: Yes Currently Using BIPAP: No Cardiac: Yes High Cholesterol, Hypertension Neurological: No Reproductive Disorders: No Sexually Transmitted Disease: No HIV/AIDS: No Genitourinary: Yes (URINARY FREQUENCY; RENAL INSUFFICIENCY) Gastrointestinal: Yes (RECTAL POLYPECTOMY; DIVERTICULAR DZ NOTED ON COLONOSCOPY;GASTRITIS) Gastroesophageal Reflux, Diverticulosis, Hemorrhoids, Polyps Musculoskeletal: Yes (OSTEOARTHRITIS;BILAT KNEE SCOPES AND BILAT TKR) Degenerate Disk Disease, Arthritis, Chronic Back Pain Endocrine: Yes (GOITER REMOVED) Diabetes, Non-Insulin dep HEENT: Yes (GLASSES, BEGINING OF CATARACTS) Cataract Loss of Vision: Bilateral Hearing Impairment: Denies Cancer: Yes (PRE-SKIN CANCER REMOVAL) Skin Did You Recieve Any Treatments: Yes What Type of Treatment Did You: Surgical Intervention Psychosocial: No Integumentary: Yes (PRECANCEROUS SKIN LESIONS; LIPOMAS) Blood Disorders: No Adverse Reaction/Blood Tranf: No Family Medical History Alcoholism 19 FATHER G8 BROTHER Drug abuse G8 BROTHER No Family History of: AIDS Alzheimer's disease Arthritis Asthma Cancer of mouth Cardiovascular disease Colon cancer Completed stroke Dementia Diabetes mellitus Hypertension Kidney disease Myocardial infarction Parkinson's disease Prostate cancer Psychosocial problem Respiratory disorder Seizure disorder Severe allergy Thyroid disease Tuberculosis Other Conditions/Hx Physical Exam Vital Signs Vital Signs - First Documented 05/26/21 11:12 Temp 36.0 Pulse 77 Resp 20 B/P (MAP) 155/64 (94) Pulse Ox 100 O2 Delivery Room Air Capillary Refill : Height, Weight, BMI Height: 5'6.00" Weight: 233lbs. 0.0oz. 105.023117vj; 36.57 BMI Method:Stated General Appearance: No Apparent Distress, WD/WN Eyes: Bilateral Eye Normal Inspection, Bilateral Eye PERRL, Bilateral Eye EOMI Neck: Full Range of Motion, Normal Inspection Respiratory: No Accessory Muscle Use, No Respiratory Distress Cardiovascular: Regular Rate, Rhythm, Normal Peripheral Pulses Gastrointestinal: Normal Bowel Sounds, Non Tender, Soft Extremity: Normal Capillary Refill, Normal Inspection Neurologic/Psychiatric: Alert, Oriented x3 Skin: Normal Color, Warm/Dry Progress/Results/Core Measures Suspected Sepsis SIRS Temperature: Pulse: Respiratory Rate: Blood Pressure / Mean: Results/Orders Lab Results Laboratory Tests Test 05/26/21 11:26 Range/Units My Orders Orders - DONN JUÁREZ APRN Red Cells Leukocytes Reduced (05/26/21 11:11) Chest 1 View, Ap/Pa Only (05/26/21 11:11) Ekg Tracing (05/26/21 11:11) Type And Screen (05/26/21 11:11) Vital Signs/I&O 05/26/21 11:12 Temp 36.0 Pulse 77 Resp 20 B/P (MAP) 155/64 (94) Pulse Ox 100 O2 Delivery Room Air Capillary Refill : Departure Communication (Admissions) Pale but arrives ambulatory to room 6. Alert and oriented GCS 15 hemodyn amically stable very pleasant. I notified Dr. Alvarado of the consult and Dr. Hooks of the admission. We will hold his Xarelto, clear liquids and transfuse 2 units for now. Impression Primary Impression: Symptomatic anemia Disposition: ADMITTED INPATIENT Condition: Stable Admissions Decision to Admit Reason: Admit from ER (General) Decision to Admit/Date: May 26, 2021 Time/Decision to Admit Time: 11:13 Departure-Patient Inst. Referrals: ASIM COHEN MD (PCP/Family) Primary Care Physician DONN JUÁREZ APRN May 26, 2021 11:13
--- NOTE | 2021-05-26 12:06 | Diagnostic Imaging Report ---
INDICATION: Anemia COMPARISON: 04/20/2020 FINDINGS: Single view of the chest demonstrates clear lungs bilaterally. The heart is normal. There is no pneumothorax. The osseous structures are normal. IMPRESSION: Negative chest. Dictated by: Dictated on workstation # [id number]
--- NOTE | 2021-05-26 12:19 | Consultation - Surgery ---
STEPHANIE FARRELL MED STUDENT 05/26/21 1219: History of Present Illness History of Present Illness Patient Consulted On(magalys/time) 05/26/21 12:14 Date Seen by Provider: May 26, 2021 Time Seen by Provider: 11:45 History of Present Illness General surgery consulted for symptomatic anemia with melena. Patient is a 76 year old male with a history significant for afib on xarelto, CKD stage 4, HTN, HLP, GERD, COPD, DMT2, history of diverticulosis, hemorrhoids, and colon polyps who presents with a two week history of SOB, lightheadedness, dizziness, and new onset black stool since Saturday. Patient reports that the SOB is worsened by lying flat and with exertion. Improves with rest and sitting upright. He states that he's been slowly worsening so he decided to present to his PCP's office this am and was evaluated by Amarilis Maria NP. His EKG showed NSR per patient but his Hgb was found to be 5.9, prompting him to be sent to the ED for further evaluation. Reports SOB currently at rest. Denies BRBPR. Allergies and Home Medications Allergies Coded Allergies: No Known Drug Allergies (Verified , 03/14/20) Patient Home Medication List Allopurinol (Allopurinol) 100 Mg Tablet, 200 MG PO HS, (Reported) Entered as Reported by: HESHAM VIGIL on 02/20/20 0956 Last Action: Reviewed Amiodarone HCl (Pacerone) 200 Mg Tablet, 200 MG PO BID, (Reported) Entered as Reported by: JAZMIN ANDERSON on 05/26/21 2148 Last Action: Reviewed Ascorbic Acid (Vitamin C) 1,000 Mg Tablet, 1,000 MG PO DAILY, (Reported) Entered as Reported by: DAVE RECIO on 02/22/20 1141 Last Action: Reviewed C,E,Zinc,Copper 11/Uxbju3b/Lut (Ocuvite Adult 50 Plus Softgel) 1 Each Capsule, 1 EACH PO DAILY, (Reported) Entered as Reported by: JAZMIN ANDERSON on 05/26/21 3433 Last Action: Reviewed Cholecalciferol (Vitamin D3) (Vitamin D3) 25 Mcg Capsule, 25 MCG PO DAILY, (Reported) Entered as Reported by: JAZMIN ANDERSON on 05/26/21 1088 Last Action: Reviewed Diltiazem HCl (Diltiazem 24Hr ER) 240 Mg Cap.er.24h, 240 MG PO BID, (Reported) Entered as Reported by: JAZMIN ANDERSON on 05/26/211457 Last Action: Reviewed Empagliflozin (Jardiance) 25 Mg Tablet, 12.5 MG PO HS, (Reported) Entered as Reported by: JAZMIN ANDERSON on 05/26/211457 Last Action: Reviewed Ezetimibe/Simvastatin (Ezetimibe-Simvastatin 10-80 mg) 1 Each Tablet, 1 EA PO DAILY, (Reported) Entered as Reported by: JAZMIN ANDERSON on 05/26/211457 Last Action: Reviewed Fenofibric Acid (Choline) (Fenofibric Acid) 135 Mg Capsule.dr, 135 MG PO DAILY, (Reported) Entered as Reported by: JAZMIN ANDERSON on 05/26/211457 Last Action: Reviewed Lansoprazole (Lansoprazole) 30 Mg Capsule.dr, 30 MG PO DAILY, (Reported) Entered as Reported by: ADAMS MOORE on 08/30/15 1029 Last Action: Reviewed Losartan Potassium (Losartan Potassium) 100 Mg Tablet, 100 MG PO DAILY, (Reported) Entered as Reported by: JAZMIN ANDERSON on 05/26/211457 Last Action: Reviewed Metformin HCl (Metformin HCl) 500 Mg Tablet, 500 MG PO BID, (Reported) Entered as Reported by: DAVE RECIO on 02/22/201140 Last Action: Reviewed Metoprolol Succinate (Metoprolol Succinate) 50 Mg Tab.er.24h, 50 MG PO HS, (Reported) Entered as Reported by: JAZMIN ANDERSON on 05/26/211457 Last Action: Reviewed Multivitamin (Multivitamin) 1 Each Tablet, 1 EACH PO DAILY, (Reported) Entered as Reported by: DAVE RECIO on 02/22/201140 Last Action: Reviewed Ingalls 3 Polyunsat Fatty Acids (Fish Oil 1,000 mg Capsule) 1,000 Mg Cap, 1,000 MG PO BID, (Reported) Entered as Reported by: DAVE RECIO on 02/22/201140 Last Action: Reviewed Rivaroxaban (Xarelto Tablet) 20 Mg Tablet, 20 MG PO HS, (Reported) Entered as Reported by: JAZMIN ANDERSON on 05/26/21 1500 Last Action: Reviewed Tamsulosin HCl (Flomax) 0.4 Mg Cap, 0.4 MG PO HS, (Reported) Entered as Reported by: JAZMIN ANDERSON on 05/26/21 145 Last Action: Reviewed Discontinued Medications Amiodarone HCl (Amiodarone HCl) 200 Mg Tablet, 200 MG PO Q12H Discontinued Reason: Duplicate Order Prescribed by: GLYNN HOOKS on 02/24/201713 Last Action: Discontinued Apixaban (Eliquis) 5 Mg Tablet, 5 MG PO BID Discontinued Reason: No Longer Taking Prescribed by: GLYNN HOOKS on 02/24/201713 Last Action: Discontinued Aspirin (Aspirin EC) 81 Mg Tablet.dr, 81 MG PO HS, (Reported) Discontinued Reason: No Longer Taking Entered as Reported by: DAVE RECIO on 02/22/201140 Last Action: Discontinued Azilsartan Med/Chlorthalidone (Edarbyclor 40-12.5 mg Tablet) 1 Each Tablet, 1 EACH PO DAILY, (Reported) Discontinued Reason: No Longer Taking Entered as Reported by: DAVE RECIO on 02/22/201140 Last Action: Discontinued Carboxymethylcellulose Sodium (Artificial Tears) 15 Ml Drops, 2 DROPS OU BID, (Reported) Discontinued Reason: No Longer Taking Entered as Reported by: DAVE RECIO on 02/22/201140 Last Action: Discontinued Cefdinir (Cefdinir) 300 Mg Capsule, 300 MG PO BID Discontinued Reason: No Longer Taking Prescribed by: GLYNN HOOKS on 02/24/201713 Last Action: Discontinued Diltiazem HCl (Diltiazem 24Hr ER) 240 Mg Cap.er.24h, 240 MG PO BID Discontinued Reason: Duplicate Order Prescribed by: GLYNN HOOKS on 02/24/201713 Last Action: Discontinued Ergocalciferol (Vitamin D2) (Vitamin D2) 1,250 Mcg Capsule, 1,250 MCG PO DAILY, (Reported) Discontinued Reason: Prescription changed Entered as Reported by: DAVE RECIO on 02/22/201140 Ezetimibe/Simvastatin (Vytorin 10-80 mg Tablet) 1 Each Tablet, 1 TAB PO DAILY, (Reported) Discontinued Reason: No Longer Taking Entered as Reported by: ADAMS MOORE on 08/30/15 102 Last Action: Discontinued Fenofibric Acid (Choline) (Trilipix) 135 Mg Capsule.dr, 135 MG PO DAILY, (Reported) Discontinued Reason: Duplicate Order Entered as Reported by: JYOTI ADAME on 11/21/16 1014 Last Action: Discontinued Glucosa Jessica 2Kcl/Chondroitin Jessica (Glucosamine & Chondroitin Cap) 1 Each Capsule, 1 EACH PO BID, (Reported) Discontinued Reason: No Longer Taking Entered as Reported by: DAVE RECIO on 02/22/20 1147 Last Action: Discontinued Tamsulosin HCl (Flomax) 0.4 Mg Cap, 0.4 MG PO DAILY, (Reported) Discontinued Reason: Duplicate Order Entered as Reported by: JYOTI ADAME on 11/21/16 1014 Last Action: Discontinued Vitamin B Complex (Vitamin B Complex) 1 Each Tablet, 1 EACH PO DAILY, (Reported) Discontinued Reason: Duplicate Order Entered as Reported by: DAVE RCEIO on 02/22/20 1141 Last Action: Discontinued Past Zxantly-Bmjxhc-Uvzdjx Hx Patient Social History Smoking Status: Former Smoker (Quit in 1994. 40 pack year history. ) Former Smoker, Quit: Apr 02, 1994 2nd Hand Smoke Exposure: No Recent Hopitalizations: No Physical Abuse Screen: No Sexual Abuse: No Alcohol Use?: Yes (Socially) Have you traveled recently?: No Immunizations Up To Date Tetanus Booster (TDap): Unknown PED Vaccines UTD: No Date of Pneumonia Vaccine: Feb 03, 2015 Seasonal Allergies Seasonal Allergies: No Surgeries History of Surgeries: Yes (ING HERNIA;BILAT KNEE SCOPES & TKR;GOITER;LIPOMAS;SKIN LESIONS;EGD/C-SCOPE ) Surgeries: Abdominal, Eye Surgery (Bilateral cataract surgery), Joint Replacement, Orthopedic (Bilateral total knee arthroplasties) Respiratory History of Respiratory Disorde: Yes (USES CPAP) Respiratory Disorders: Sleep Apnea (compliant with CPAP at night), COPD Cardiovascular History of Cardiac Disorders: Yes Cardiac Disorders: Atrial Fibrillation, High Cholesterol, Hypertension Neurological History of Neurological Disord: No Reproductive System Hx Reproductive Disorders: No Sexually Transmitted Disease: No HIV/AIDS: No Genitourinary History of Genitourinary Disor: Yes (URINARY FREQUENCY; RENAL INSUFFICIENCY) Genitourinary Disorders: Renal Failure (Stage 4 CKD) Gastrointestinal History of Gastrointestinal Di: Yes (RECTAL POLYPECTOMY; DIVERTICULAR DZ NOTED ON COLONOSCOPY;GASTRITIS) Gastrointestinal Disorders: Gastroesophageal Reflux, Gastrointestinal Bleed, Diverticulosis, Hemorrhoids, Polyps Musculoskeletal History of Musculoskeletal Dis: Yes (OSTEOARTHRITIS;BILAT KNEE SCOPES AND BILAT TKR) Musculoskeletal Disorders: Degenerate Disk Disease, Arthritis, Chronic Back Pain Endocrine History of Endocrine Disorders: Yes (GOITER REMOVED) Endocrine Disorders: Diabetes, Non-Insulin dep HEENT History of HEENT Disorders: Yes (GLASSES, BEGINING OF CATARACTS) HEENT Disorders: Cataract Loss of Vision: Denies Hearing Impairment: Denies Cancer History of Cancer: Yes (PRE-SKIN CANCER REMOVAL) Cancer: Skin Psychosocial History of Psychiatric Problem: No Integumentary History of Skin or Integumenta: Yes (PRECANCEROUS SKIN LESIONS; LIPOMAS) Blood Transfusions History of Blood Disorders: No Adverse Reaction to a Blood Tr: No Family Medical History Significant Family History: Heart Disease, CAD Over 55 Years Old Family Medial History: Alcoholism 19 FATHER G8 BROTHER Drug abuse G8 BROTHER No Family History of: AIDS Alzheimer's disease Arthritis Asthma Cancer of mouth Cardiovascular disease Colon cancer Completed stroke Dementia Diabetes mellitus Hypertension Kidney disease Myocardial infarction Parkinson's disease Prostate cancer Psychosocial problem Respiratory disorder Seizure disorder Severe allergy Thyroid disease Tuberculosis Review of Systems-General Constitutional: No chills, No diaphoresis; dizziness; No fever; malaise, weakness EENTM: No blurred vision, No double vision Respiratory: No cough; dyspnea on exertion; No hemoptysis; short of breath Gastrointestinal: no symptoms reported; No abdominal pain, No constipation, No diarrhea, No heartburn; melena; No nausea, No vomiting Genitourinary: No decreased output, No discharge, No dysuria, No hematuria, No incontinence Musculoskeletal: No back pain, No joint pain Skin: No change in color, No change in hair/nails, No dryness, No lesions Psychiatric/Neurological: Denies Anxiety, Denies Depressed All Other Systems Reviewed Negative Unless Noted: Yes Physical Exam-General Problems Physical Exam Vital Signs Vital Signs - First Documented 05/26/21 11:12 Temp 36.0 Pulse 77 Resp 20 B/P (MAP) 155/64 (94) Pulse Ox 100 O2 Delivery Room Air Capillary Refill : General Appearance: no apparent distress, obese Eyes: Bilateral Eye Normal Inspection, Bilateral Eye PERRL, Bilateral Eye EOMI HEENT: PERRL/EOMI, pharynx normal, pale conjunctivae (R), pale conjunctivae (L), other (Poor dentition) Neck: non-tender, full range of motion, normal inspection Respiratory: chest non-tender, lungs clear, normal breath sounds, no respiratory distress, no accessory muscle use Cardiovascular: no edema, irregularly irregular (afib per bedside monitor) Peripheral Pulses: 2+ Dorsalis Pedis (R), 2+ Left Dors-Pedis (L), 2+ Radial Pulses (R), 2+ Radial Pulses (L) Gastrointestinal: normal bowel sounds, non tender, soft; No distended, No guarding, No rebound, No tenderness Rectal: deferred Back: no CVA tenderness, no vertebral tenderness Extremities: normal range of motion, no pedal edema, no calf tenderness, normal capillary refill Neurologic/Psychiatric: no motor/sensory deficits, alert, normal mood/affect, oriented x 3 Skin: warm/dry, pallor Lymphatic: no adenopathy (Head and Neck) Data Review Radiology NAME: [facility] REC#: [id number] PT STATUS: REG ER : 1945 PHYSICIAN: DONN JUÁREZ APRN ADMIT DATE: 05/26/21/ER Draft Date of Exam:05/26/21 CHEST 1 VIEW, AP/PA ONLY INDICATION: Anemia COMPARISON: 04/20/2020 FINDINGS: Single view of the chest demonstrates clear lungs bilaterally. The heart is normal. There is no pneumothorax. The osseous structures are normal. IMPRESSION: Negative chest. Dictated on workstation # [id number] Dict: 05/26/21 1203 Trans: 05/26/21 1205 [facility] [id number] Interpreted by: JANETTE MAYES Electronically signed by: Assessment/Plan Assessment/Plan Admission Diagonsis Symptomatic Anemia Melena Assessment/Plan Symptomatic Anemia Melena Atrial fibrillation Anticoagulated CDK stage 4 NIDDM HTN COPD BRENDA H/o colon polyps Hemorrhoids Diverticulosis H/o GIB per patient 2017 Patient with acute blood loss anemia, hgb 5.9 and reported melena at home clear liquid diet Protonix Transfuse prbc PRN Trend H and H Hold anticoagulation PAVEL STONE DO 05/26/21 7941: History of Present Illness History of Present Illness History of Present Illness Patient is a 76-year-old male who has approximately 2-week history of increasing shortness of breath dizziness and lightheadedness. Patient has recently had some dark stools that began last Saturday. He notes that he is on anticoagulation. His worsening shortness of breath with lying flat and exertion/exercising. Feels better with resting. Patient had outpatient hemoglobin performed which demonstrated a hemoglobin of 5.9. Patient having no abdominal pain. He has longstanding reflux issues which he takes Prevacid for he states. He denies any other complaints at this time. He denies any nausea vomiting fever sweats chills shortness of breath or chest pain at this time. Allergies and Home Medications Allergies Coded Allergies: No Known Drug Allergies (Verified , 03/14/20) Patient Home Medication List Home Medication List Reviewed: Yes Allopurinol (Allopurinol) 100 Mg Tablet, 200 MG PO HS, (Reported) Entered as Reported by: HESHAM VIGIL on 02/20/20 0956 Last Action: Reviewed Amiodarone HCl (Pacerone) 200 Mg Tablet, 200 MG PO BID, (Reported) Entered as Reported by: JAZMIN ANDERSON on 05/26/211457 Last Action: Reviewed Ascorbic Acid (Vitamin C) 1,000 Mg Tablet, 1,000 MG PO DAILY, (Reported) Entered as Reported by: DAVE RCEIO on 02/22/20 1141 Last Action: Reviewed C,E,Zinc,Copper 11/Ngoeh2c/Lut (Ocuvite Adult 50 Plus Softgel) 1 Each Capsule, 1 EACH PO DAILY, (Reported) Entered as Reported by: JAZMIN ANDERSON on 05/26/211458 Last Action: Reviewed Cholecalciferol (Vitamin D3) (Vitamin D3) 25 Mcg Capsule, 25 MCG PO DAILY, (Reported) Entered as Reported by: JAZMIN ANDERSON on 05/26/211457 Last Action: Reviewed Diltiazem HCl (Diltiazem 24Hr ER) 240 Mg Cap.er.24h, 240 MG PO BID, (Reported) Entered as Reported by: JAZMIN ANDERSON on 05/26/211457 Last Action: Reviewed Empagliflozin (Jardiance) 25 Mg Tablet, 12.5 MG PO HS, (Reported) Entered as Reported by: JAZMIN ANDERSON on 05/26/211457 Last Action: Reviewed Ezetimibe/Simvastatin (Ezetimibe-Simvastatin 10-80 mg) 1 Each Tablet, 1 EA PO DAILY, (Reported) Entered as Reported by: JAZMIN ANDERSON on 05/26/211457 Last Action: Reviewed Fenofibric Acid (Choline) (Fenofibric Acid) 135 Mg Capsule.dr, 135 MG PO DAILY, (Reported) Entered as Reported by: JAZMIN ANDERSON on 05/26/211457 Last Action: Reviewed Lansoprazole (Lansoprazole) 30 Mg Capsule.dr, 30 MG PO DAILY, (Reported) Entered as Reported by: ADAMS MOORE on 08/30/15 1029 Last Action: Reviewed Losartan Potassium (Losartan Potassium) 100 Mg Tablet, 100 MG PO DAILY, (Reported) Entered as Reported by: JAZMIN ANDERSON on 05/26/211457 Last Action: Reviewed Metformin HCl (Metformin HCl) 500 Mg Tablet, 500 MG PO BID, (Reported) Entered as Reported by: DAVE RECIO on 02/22/20 114 Last Action: Reviewed Metoprolol Succinate (Metoprolol Succinate) 50 Mg Tab.er.24h, 50 MG PO HS, (Reported) Entered as Reported by: JAZMIN ANDERSON on 05/26/211457 Last Action: Reviewed Multivitamin (Multivitamin) 1 Each Tablet, 1 EACH PO DAILY, (Reported) Entered as Reported by: DAVE RECIO on 02/22/20 114 Last Action: Reviewed Ingalls 3 Polyunsat Fatty Acids (Fish Oil 1,000 mg Capsule) 1,000 Mg Cap, 1,000 MG PO BID, (Reported) Entered as Reported by: DAVE RECIO on 02/22/20 114 Last Action: Reviewed Rivaroxaban (Xarelto Tablet) 20 Mg Tablet, 20 MG PO HS, (Reported) Entered as Reported by: JAZMIN ANDERSON on 05/26/21 1500 Last Action: Reviewed Tamsulosin HCl (Flomax) 0.4 Mg Cap, 0.4 MG PO HS, (Reported) Entered as Reported by: JAZMIN ANDERSON on 05/26/211457 Last Action: Reviewed Discontinued Medications Amiodarone HCl (Amiodarone HCl) 200 Mg Tablet, 200 MG PO Q12H Discontinued Reason: Duplicate Order Prescribed by: GLYNN HOOKS on 02/24/20 8547 Last Action: Discontinued Apixaban (Eliquis) 5 Mg Tablet, 5 MG PO BID Discontinued Reason: No Longer Taking Prescribed by: GLYNN HOOKS on 02/24/201713 Last Action: Discontinued Aspirin (Aspirin EC) 81 Mg Tablet.dr, 81 MG PO HS, (Reported) Discontinued Reason: No Longer Taking Entered as Reported by: DAVE RECIO on 02/22/201140 Last Action: Discontinued Azilsartan Med/Chlorthalidone (Edarbyclor 40-12.5 mg Tablet) 1 Each Tablet, 1 EACH PO DAILY, (Reported) Discontinued Reason: No Longer Taking Entered as Reported by: DAVE RECIO on 02/22/201140 Last Action: Discontinued Carboxymethylcellulose Sodium (Artificial Tears) 15 Ml Drops, 2 DROPS OU BID, (Reported) Discontinued Reason: No Longer Taking Entered as Reported by: DAVE RECIO on 02/22/201140 Last Action: Discontinued Cefdinir (Cefdinir) 300 Mg Capsule, 300 MG PO BID Discontinued Reason: No Longer Taking Prescribed by: GLYNN HOOKS on 02/24/201713 Last Action: Discontinued Diltiazem HCl (Diltiazem 24Hr ER) 240 Mg Cap.er.24h, 240 MG PO BID Discontinued Reason: Duplicate Order Prescribed by: GLYNN HOOKS on 02/24/201713 Last Action: Discontinued Ergocalciferol (Vitamin D2) (Vitamin D2) 1,250 Mcg Capsule, 1,250 MCG PO DAILY, (Reported) Discontinued Reason: Prescription changed Entered as Reported by: DAVE RECIO on 02/22/201140 Ezetimibe/Simvastatin (Vytorin 10-80 mg Tablet) 1 Each Tablet, 1 TAB PO DAILY, (Reported) Discontinued Reason: No Longer Taking Entered as Reported by: ADAMS MOORE on 08/30/15 1029 Last Action: Discontinued Fenofibric Acid (Choline) (Trilipix) 135 Mg Capsule.dr, 135 MG PO DAILY, (Reported) Discontinued Reason: Duplicate Order Entered as Reported by: JYOTI ADAME on 11/21/16 1014 Last Action: Discontinued Glucosa Jessica 2Kcl/Chondroitin Jessica (Glucosamine & Chondroitin Cap) 1 Each Capsule, 1 EACH PO BID, (Reported) Discontinued Reason: No Longer Taking Entered as Reported by: DAVE RECIO on 02/22/20 1147 Last Action: Discontinued Tamsulosin HCl (Flomax) 0.4 Mg Cap, 0.4 MG PO DAILY, (Reported) Discontinued Reason: Duplicate Order Entered as Reported by: JYOTI ADAME on 11/21/16 1014 Last Action: Discontinued Vitamin B Complex (Vitamin B Complex) 1 Each Tablet, 1 EACH PO DAILY, (Reported) Discontinued Reason: Duplicate Order Entered as Reported by: DAVE RECIO on 02/22/20 1141 Last Action: Discontinued Past Btmcvfy-Tsxuaf-Cbkaho Hx Patient Social History Smoking Status: Former Smoker (Quit in 1994. 40 pack year history. ) Surgeries Surgeries: Abdominal, Eye Surgery (Bilateral cataract surgery), Joint Replacement, Orthopedic (Bilateral total knee arthroplasties) Respiratory Respiratory Disorders: Sleep Apnea (compliant with CPAP at night), COPD Cardiovascular Cardiac Disorders: Atrial Fibrillation, High Cholesterol, Hypertension Genitourinary Genitourinary Disorders: Renal Failure (Stage 4 CKD) Gastrointestinal Gastrointestinal Disorders: Gastroesophageal Reflux, Gastrointestinal Bleed, Diverticulosis, Hemorrhoids, Polyps Reviewed Nursing Assessment Reviewed/Agree w Nursing PMH: Yes Family Medical History Significant Family History: Heart Disease, CAD Over 55 Years Old Family Medial History: Alcoholism 19 FATHER G8 BROTHER Drug abuse G8 BROTHER No Family History of: AIDS Alzheimer's disease Arthritis Asthma Cancer of mouth Cardiovascular disease Colon cancer Completed stroke Dementia Diabetes mellitus Hypertension Kidney disease Myocardial infarction Parkinson's disease Prostate cancer Psychosocial problem Respiratory disorder Seizure disorder Severe allergy Thyroid disease Tuberculosis Review of Systems-General Constitutional: No chills, No diaphoresis; dizziness; No fever; malaise, weakness EENTM: No blurred vision, No double vision Respiratory: No cough; dyspnea on exertion; No hemoptysis; short of breath Gastrointestinal: No abdominal pain, No constipation, No diarrhea; melena; No nausea, No vomiting Genitourinary: No incontinence Musculoskeletal: No back pain, No joint pain Skin: No change in color, No change in hair/nails, No dryness Psychiatric/Neurological: Denies Anxiety, Denies Depressed, Denies Emotional Problems All Other Systems Reviewed Negative Unless Noted: Yes (Negative excepted noted.) Physical Exam-General Problems Physical Exam General Appearance: WD/WN, no apparent distress, obese HEENT: PERRL/EOMI; No normal ENT inspection; pale conjunctivae (R), pale conjunctivae (L) Neck: non-tender, full range of motion Respiratory: chest non-tender, no respiratory distress, no accessory muscle use Cardiovascular: no edema, no JVD, irregularly irregular (afib per bedside monitor) Gastrointestinal: non tender, soft Rectal: deferred Back: no CVA tenderness, no vertebral tenderness Extremities: non-tender, no pedal edema, no calf tenderness Neurologic/Psychiatric: no motor/sensory deficits, alert, normal mood/affect, oriented x 3 Skin: warm/dry, pallor Lymphatic: no adenopathy (Head and Neck) Assessment/Plan Assessment/Plan Assessment/Plan Symptomatic Anemia Melena Atrial fibrillation Anticoagulated GERD CDK stage 4 NIDDM HTN COPD BRENDA Patient with acute blood loss anemia, hgb 5.9 and reported melena at home clear liquid diet Protonix Transfuse prbc PRN Trend H and H Hold anticoagulation Supervisory-Addendum Brief Verification & Attestation Participated in pt care: history, MDM, physical Personally performed: exam, history, MDM, supervision of care Care discussed with: Medical Student Procedures: n/a Results interpretation: Verified all documentation Verification and Attestation of Medical Student E/M Service A medical student performed and documented this service in my presence. I reviewed and verified all information documented by the medical student and made modifications to such information, when appropriate. I personally performed the physical exam and medical decision making. Pavel Stone, May 26, 2021,17:35 STEPHANIE FARRELL MED STUDENT May 26, 2021 12:19 PAVEL STONE DO May 26, 2021 17:28
[2021-05-26] MEDS ORDERED: NS IV 500 ML 500 ML IV SCH (13:30)
[2021-05-26] MEDS ORDERED: CATHETER FLUSH 10 ML SYR IVP PRN (13:30)
[2021-05-26] MEDS: NS IV 1000 ML 1,000 ML IV SCH (13:49)
[2021-05-26] MEDS ORDERED: PANTOPRAZOLE 40 MG (PROTONIX) VIAL IV ONE (14:00)
[2021-05-26] MEDS ORDERED: TMSL.4C PO (14:58)
[2021-05-26] MEDS ORDERED: LOSA100T57 PO (14:58)
[2021-05-26] MEDS ORDERED: METO50TA7 PO (14:58)
[2021-05-26] MEDS ORDERED: AMIO200T50 PO (14:58)
[2021-05-26] MEDS ORDERED: EZET-61 PO (14:58)
[2021-05-26] MEDS ORDERED: CHOL10007 PO (14:58)
[2021-05-26] MEDS ORDERED: EMPA25TA PO (14:58)
[2021-05-26] MEDS ORDERED: DILT240C91 PO (14:58)
[2021-05-26] MEDS ORDERED: FENO135C4 PO (14:58)
[2021-05-26] MEDS ORDERED: C,E,1CAP PO (14:59)
[2021-05-26] MEDS ORDERED: RIVA20TA2 PO (15:00)
[2021-05-26] MEDS: inSUlin ASPART (NovoLOG) 1 UNIT/0.01 ML (CHARGE PER UNIT) SC SCH ×2 (15:35→20:12)
[2021-05-26] MEDS ORDERED: PANTOPRAZOLE 40 MG (PROTONIX) VIAL ONE (16:43)
[2021-05-26 18:20] LABS: HEMOGLOBIN 6.5 g/dL (13.3-17.7)
[2021-05-26] MEDS: PANTOPRAZOLE 40 MG (PROTONIX) VIAL IV SCH (21:15)
--- NOTE | 2021-05-26 21:56 | History & Physical-Hospitalist ---
History of Present Illness HPI/Chief Complaint Jus Lange is a 76 year old male with PMH HTN, HLD, T2DM, AFib, obesity, who presented with lightheadedness. He has been feeling dizzy. He also reports shortness of breath. He has had some chest tightness. He has noticed some dark stools. He denies fevers. He denies cough. He denies abdominal pain. He has not had nausea or vomiting. He is on blood thinners for AFib. He has a history of GI bleed a few years ago. Source: patient Exam Limitations: no limitations Date Seen 05/26/21 Time Seen by a Provider: 19:50 Attending Physician Glynn Hooks MD PCP Brayden Moeller MD Referring Physician Date of Admission May 26, 2021 at 11:33 Home Medications & Allergies Home Medications Reviewed patient Home Medication Reconciliation performed by pharmacy medication reconciliations energy and conservation technician and/or nursing. Patients Allergies have been reviewed. Allergies Allergies Coded Allergies No Known Drug Allergies (Emdziuvp14/14/20) Past Rbiwuqa-Hdpbto-Qqmuiy Hx Patient Social History Tobacco Use?: No Smoking Status: Former Smoker (Quit in 1994. 40 pack year history. ) Use of E-Cig and/or Vaping dev: No Substance use?: No Alcohol Use?: Yes Alcohol Frequency: Rarely Pt feels they are or have been: No Immunizations Up To Date Date of Influenza Vaccine: Jan 27, 2021 First/Initial COVID19 Vaccinat: MAY 28, 2020 Second COVID19 Vaccination Facundo: JUNE 23, 2020 Tetanus Booster (TDap): Unknown Hepatitis A: No Hepatitis B: No PED Vaccines UTD: No Date of Pneumonia Vaccine: Feb 03, 2015 Seasonal Allergies Seasonal Allergies: No Current Status Advance Directives: Yes Advance Directive Location: Home Communicates: Verbally Primary Language: Martiniquais Preferred Spoken Language: Martiniquais Is interpretation needed?: No Implanted or Applied Medical D: None Past Medical History Surgeries: Abdominal, Eye Surgery (Bilateral cataract surgery), Joint Replacement, Orthopedic (Bilateral total knee arthroplasties) Sleep Apnea (compliant with CPAP at night), COPD Currently Using CPAP: Yes Currently Using BIPAP: No Atrial Fibrillation, High Cholesterol, Hypertension Sexually Transmitted Disease: No HIV/AIDS: No Renal Failure (Stage 4 CKD) Gastroesophageal Reflux, Gastrointestinal Bleed, Diverticulosis, Hemorrhoids, Polyps Degenerate Disk Disease, Arthritis, Chronic Back Pain Diabetes, Non-Insulin dep Cataract Loss of Vision: Denies Hearing Impairment: Denies Skin Did You Recieve Any Treatments: Yes What Type of Treatment Did You: Surgical Intervention Blood Disorders: No Adverse Reaction/Blood Tranf: No Family Medical History Alcoholism 19 FATHER G8 BROTHER Drug abuse G8 BROTHER No Family History of: AIDS Alzheimer's disease Arthritis Asthma Cancer of mouth Cardiovascular disease Colon cancer Completed stroke Dementia Diabetes mellitus Hypertension Kidney disease Myocardial infarction Parkinson's disease Prostate cancer Psychosocial problem Respiratory disorder Seizure disorder Severe allergy Thyroid disease Tuberculosis Heart Disease, CAD Over 55 Years Old Review of Systems Constitutional: dizziness EENTM: no symptoms reported Respiratory: short of breath Cardiovascular: no symptoms reported Gastrointestinal: melena Genitourinary: no symptoms reported Musculoskeletal: no symptoms reported Skin: no symptoms reported Psychiatric/Neurological: No Symptoms Reported Physical Exam Physical Exam Vital Signs Vital Signs - First Documented 05/26/21 11:12 Temp 36.0 Pulse 77 Resp 20 B/P (MAP) 155/64 (94) Pulse Ox 100 O2 Delivery Room Air Capillary Refill : Height, Weight, BMI Height: 5'6.00" Weight: 233lbs. 0.0oz. [id number]; 38.76 BMI Method:Stated General Appearance: No Apparent Distress, Obese HEENT: PERRL/EOMI, Pharynx Normal Neck: Normal Inspection, Supple Respiratory: Lungs Clear, No Respiratory Distress Cardiovascular: Regular Rate, Rhythm, No Murmur Gastrointestinal: Normal Bowel Sounds, Soft Extremity: Normal Inspection, No Pedal Edema Neurologic/Psychiatric: Alert, Normal Mood/Affect Skin: Normal Color, Warm/Dry Results Results/Procedures Labs Laboratory Tests 05/26/21 18:10 05/27/21 05:40 05/27/21 14:48 05/28/21 05:53 Patient resulted labs reviewed. Imaging: Reviewed Imaging Report Assessment/Plan Admission Diagnosis Acute blood loss anemia Admission Status: Inpatient Order (span 2 midnights) Reason for Inpatient Admission: GI bleeding Assessment and Plan ABLA UGIB Melena Hgb 5.9 Transfuse to keep Hgb >7 IV PPI BID Surgery consulted Clear liquid diet IV fluids HTN HLD T2DM AFib Continue home meds Hold anticoagulation Hold Metformin Sliding scale insulin Diagnosis/Problems Diagnosis/Problems (1) ABLA (acute blood loss anemia) Status: Acute (2) UGIB (upper gastrointestinal bleed) Status: Acute (3) Melena Status: Acute (4) HTN (hypertension) Status: Chronic (5) HLD (hyperlipidemia) Status: Chronic (6) Afib Status: Chronic (7) GERD (gastroesophageal reflux disease) Status: Chronic (8) Obesity Status: Chronic GLYNN HOOKS MD May 26, 2021 21:56
[2021-05-27] VITALS (9 sets, daily range): BP systolic 116–170; BP diastolic 57–75
[2021-05-27] MEDS: NS IV 1000 ML 1,000 ML IV SCH ×2 (02:50→08:22)
[2021-05-27 06:15] LABS: BASOPHILS % (AUTO) 1 % (0-10); EOSINOPHILS # (AUTO) 0.1 10^3/uL (0.0-0.3); EOSINOPHILS % (AUTO) 1 % (0-10); HEMATOCRIT 23 % (40-54); LYMPHOCYTES # (AUTO) 1.3 10^3/uL (1.0-4.0); LYMPHOCYTES % (AUTO) 23 % (12-44); MEAN CORPUSCULAR HEMOGLOBIN 24 pg (25-34); MEAN CORPUSCULAR HGB CONC 30 g/dL (32-36); MEAN CORPUSCULAR VOLUME 82 fL (80-99); MEAN PLATELET VOLUME 10.6 fL (9.0-12.2); MONOCYTES # (AUTO) 0.6 10^3/uL (0.0-1.0); MONOCYTES % (AUTO) 10 % (0-12); NEUTROPHILS # (AUTO) 3.8 10^3/uL (1.8-7.8); NEUTROPHILS % (AUTO) 65 % (42-75); PLATELET COUNT 154 10^3/uL (130-400); WHITE BLOOD COUNT 5.9 10^3/uL (4.3-11.0)
[2021-05-27 06:20] LABS: HEMOGLOBIN 6.7 g/dL (13.3-17.7)
[2021-05-27 06:30] LABS: CALCIUM 8.1 MG/DL (8.5-10.1)
[2021-05-27 06:35] LABS: CREATININE SERUM 2.47 MG/DL (0.60-1.30)
[2021-05-27] MEDS ORDERED: NS IV 500 ML 500 ML IV SCH ×2 (06:45→08:00)
[2021-05-27] MEDS: inSUlin ASPART (NovoLOG) 1 UNIT/0.01 ML (CHARGE PER UNIT) SC SCH ×4 (06:46→21:09)
[2021-05-27] MEDS ORDERED: HYDROCORTISONE 100 MG/2 ML (Solu-CORTEF) VIAL IV PRN (08:00)
[2021-05-27] MEDS ORDERED: EPINEPHrine INJECTION 1 MG/ML AMP IM PRN (08:00)
[2021-05-27] MEDS ORDERED: diphenhydrAMINE 50 MG/ML INJ (BENADRYL) IV PRN (08:00)
[2021-05-27] MEDS ORDERED: RT-ALBUTEROL SULF 2.5 MG/3 ML PRE-MIX VIAL IH PRN ×2 (08:00→09:30)
[2021-05-27] MEDS ORDERED: IRON DEXTRAN INJECTION 25 MG in NS (IVPB) 5.75 ML IV ONE (08:15)
[2021-05-27] MEDS: AMIODARONE 200 MG (CORDARONE) TAB PO SCH ×2 (08:23→21:02)
[2021-05-27] MEDS: PANTOPRAZOLE 40 MG (PROTONIX) VIAL IV SCH ×2 (08:23→21:03)
[2021-05-27] MEDS: LOSARTAN 100 MG (COZAAR) TABLET PO SCH (08:23)
[2021-05-27] MEDS ORDERED: IRON DEXTRAN INJECTION 1,000 MG in NS (IVPB) 250 ML IV ONE (08:30)
--- NOTE | 2021-05-27 08:42 | Progress Note - Surgery ---
STEPHANIE FARRELL MED STUDENT 05/27/21 0842: Subjective Date Seen by a Provider: May 27, 2021 Time Seen by a Provider: 08:10 Subjective/Events-last exam Patient reports improvement in SOB, lightheadedness, and generalized weakness. He reports he had 1 BM overnight that appeared brown in color, no blood per patient report. Denies chest pain, fevers, headaches, nausea, vomiting, abdominal pain, and hematuria. States is tolerating po clears well. Hgb remains low and 1 unit prbc to be transfused this am. Review of Systems General: No Chills, No Night Sweats; Fatigue HEENT: No Head Aches Pulmonary: Dyspnea (improving); No Cough, No Pleuritic Chest Pain Cardiovascular: No: Chest Pain, Palpitations, Edema, Lt Headedness Gastrointestinal: No: Nausea, Vomiting, Abdominal Pain, Melena, Hematochezia Musculoskeletal: No: neck pain, back pain Neurological: No: Weakness, Numbness, Confusion Objective Exam Vital Signs Date Time Temp Pulse Resp B/P (MAP) Pulse Ox O2 Delivery O2 Flow Rate FiO2 05/27/21 07:50 36.6 80 20 125/57 (79) 98 Room Air 05/27/21 07:00 64 05/27/21 03:53 36.1 67 18 162/72 (102) 97 Room Air 05/27/21 01:00 69 05/27/21 00:00 36.0 63 18 170/65 (100) 98 Room Air 05/26/21 21:19 36.7 63 18 148/65 98 Room Air 05/26/21 20:30 Room Air 05/26/21 19:46 36.1 78 18 137/64 (88) 97 Room Air 05/26/21 19:00 62 05/26/21 18:50 36.7 61 20 127/60 97 Room Air 05/26/21 18:37 36.2 64 18 130/63 99 Room Air 05/26/21 17:00 36.0 87 18 150/65 98 Room Air 05/26/21 15:40 36.1 65 18 165/64 (97) 97 Room Air 05/26/21 14:25 36.6 63 18 155/68 98 Room Air 05/26/21 14:10 97 Room Air 05/26/21 14:07 36.6 61 22 134/64 97 Room Air 05/26/21 13:45 35.8 78 22 113/55 (74) 98 Room Air 05/26/21 12:13 96 18 143/56 99 Room Air 05/26/21 11:12 36.0 77 20 155/64 (94) 100 Room Air I & O 05/27/21 07:00 Intake Total 1060 ml Balance 1060 ml Capillary Refill : General Appearance: No Apparent Distress, Obese HEENT: PERRL/EOMI, Moist Mucous Membranes, Pale Conjunctivae (L), Pale Conjunctivae (R) Neck: Normal Inspection, Non Tender Respiratory: Chest Non Tender, Lungs Clear, Normal Breath Sounds, No Respiratory Distress Cardiovascular: Regular Rate, Rhythm, No Edema, Normal Peripheral Pulses Peripheral Pulses: 2+ Dorsalis Pedis (R), 2+ Left Dors-Pedis (L), 2+ Radial Pulses (R), 2+ Radial Pulses (L) Gastrointestinal: normal bowel sounds, non tender, soft; No guarding, No rebound, No tenderness Extremity: Normal Capillary Refill, Normal Inspection, Non Tender, No Calf Tenderness, No Pedal Edema Neurologic/Psychiatric: Alert, Oriented x3, No Motor/Sensory Deficits, Normal Mood/Affect Skin: Normal Color, Warm/Dry Lymphatic: No Adenopathy (Head and Neck) Results Lab Laboratory Tests 05/26/21 11:26: Iron Level 29L, Total Iron Binding Capacity See Est TIBC, Unsaturated Iron Binding Capacity >500, Transferrin % Saturation See Est %Sat, Ferritin 9.2L 05/26/21 15:22: Glucometer 152H 05/26/21 18:10: Hemoglobin 6.5*L, Hematocrit 22L 05/26/21 20:10: Glucometer 145H 05/27/21 05:40: White Blood Count 5.9, Red Blood Count 2.76L, Hemoglobin 6.7*L, Hematocrit 23L, Mean Corpuscular Volume 82, Mean Corpuscular Hemoglobin 24L, Mean Corpuscular Hemoglobin Concent 30L, Red Cell Distribution Width 16.5H, Platelet Count 154, Mean Platelet Volume 10.6, Immature Granulocyte % (Auto) 2, Neutrophils (%) (Auto) 65, Lymphocytes (%) (Auto) 23, Monocytes (%) (Auto) 10, Eosinophils (%) (Auto) 1, Basophils (%) (Auto) 1, Neutrophils # (Auto) 3.8, Lymphocytes # (Auto) 1.3, Monocytes # (Auto) 0.6, Eosinophils # (Auto) 0.1, Basophils # (Auto) 0.0, Immature Granulocyte # (Auto) 0.1, Sodium Level 138, Potassium Level 4.0, Chloride Level 112H, Carbon Dioxide Level 18L, Anion Gap 8, Blood Urea Nitrogen 43H, Creatinine 2.47H, Estimat Glomerular Filtration Rate 27, BUN/Creatinine Ratio 17, Glucose Level 110H, Calcium Level 8.1L Assessment/Plan Assessment/Plan Assessment/Plan Symptomatic Anemia Melena/GIB s/p blood transfusion Atrial fibrillation Anticoagulated GERD CDK stage 4 NIDDM HTN COPD BRENDA Patient with acute blood loss anemia, hgb 6.7 this am s/p 2 units prbc's yesterday, 1 unit prbc ordered this am per hospitalist service clear liquid diet Protonix Transfuse prbc PRN to keep hgb >7 Trend H and H continue hold anticoagulation EGD saturday to further evaluate source of GIB. PAVEL ALVARADO DO 05/27/21 1320: Subjective Subjective/Events-last exam Patient feeling a little better today. Not having the shortness of breath and weakness as he was. He had a bowel movement overnight which was more normal color. He denies any blood in the stools. Patient hemoglobin improved to 6.7 he received 2 units of packed red blood cells. He has no abdominal pain. He is tolerating clears. He is going to receive 1 unit packed red blood cells today. He has no other complaints. Denies nausea vomiting fever sweats chills shortness of breath or chest pain. Objective Exam General Appearance: No Apparent Distress, Obese HEENT: PERRL/EOMI, Normal ENT Inspection, Pale Conjunctivae (L), Pale Conjunctivae (R) Neck: Normal Inspection, Non Tender Respiratory: Chest Non Tender, No Accessory Muscle Use, No Respiratory Distress Cardiovascular: Regular Rate, Rhythm, No JVD Gastrointestinal: non tender, soft, no organomegaly Extremity: Normal Capillary Refill, Normal Inspection, Non Tender, No Calf Tenderness Neurologic/Psychiatric: Alert, Oriented x3, No Motor/Sensory Deficits, Normal Mood/Affect Skin: Normal Color, Warm/Dry Lymphatic: No Adenopathy (Head and Neck) Assessment/Plan Assessment/Plan Assessment/Plan Symptomatic Anemia Melena/GIB s/p blood transfusion Atrial fibrillation Anticoagulated GERD CDK stage 4 NIDDM HTN COPD BRENDA Patient with acute blood loss anemia, hgb 6.7 this am s/p 2 units prbc's yesterday, 1 unit prbc ordered this am per hospitalist service clear liquid diet Protonix Transfuse prbc PRN to keep hgb >7 Trend H and H continue hold anticoagulation EGD/colonoscopy saturday to further evaluate source of GIB. Supervisory-Addendum Brief Verification & Attestation Participated in pt care: history, MDM, physical Personally performed: exam, history, MDM, supervision of care Care discussed with: Medical Student Procedures: n/a Results interpretation: Verified all documentation Verification and Attestation of Medical Student E/M Service A medical student performed and documented this service in my presence. I reviewed and verified all information documented by the medical student and made modifications to such information, when appropriate. I personally performed the physical exam and medical decision making. Pavel Alvarado, May 27, 2021,13:20 STEPHANIE FARRELL MED STUDENT May 27, 2021 08:42 PAVEL ALVARADO DO May 27, 2021 13:20
[2021-05-27] MEDS ORDERED: PANTOPRAZOLE 40 MG (PROTONIX) TAB PO SCH (09:00)
--- NOTE | 2021-05-27 11:15 | Progress Note - Hospitalist ---
Subjective HPI/CC On Admission Date Seen by Provider: May 27, 2021 Time Seen by Provider: 09:50 Subjective/Events-last exam He denies lightheadedness and dizziness. He is not having any chest pain or shortness of breath. He has had a bowel movement without melena. Objective Exam Vital Signs Vital Signs Date Time Temp Pulse Resp B/P (MAP) Pulse Ox O2 Delivery O2 Flow Rate FiO2 05/27/21 09:57 36.3 68 146/75 97 Room Air 05/27/21 09:35 20 Capillary Refill : General Appearance: No Apparent Distress, Obese Respiratory: Lungs Clear, No Respiratory Distress Cardiovascular: Regular Rate, Rhythm, No Murmur Gastrointestinal: Normal Bowel Sounds, Soft Extremity: Normal Inspection, No Pedal Edema Neurologic/Psychiatric: Alert, Normal Mood/Affect Skin: Normal Color, Warm/Dry Results/Procedures Lab Laboratory Tests 05/26/21 18:10 05/27/21 05:40 Patient resulted labs reviewed. Imaging: Reviewed Imaging Report Assessment/Plan Assessment and Plan Assess & Plan/Chief Complaint ABLA UGIB MAIKOL Melena Hgb 6.7 Transfuse to keep Hgb >7 s/p 2 units PRBC, transfusing another unit this morning Surgery following Clear liquid diet IV fluids IV PPI BID IV Infed Likely will need EGD/colonoscopy HTN HLD T2DM AFib Continue home meds Hold anticoagulation Hold Metformin Sliding scale insulin Diagnosis/Problems Diagnosis/Problems (1) ABLA (acute blood loss anemia) Status: Acute (2) UGIB (upper gastrointestinal bleed) Status: Acute (3) Melena Status: Acute (4) HTN (hypertension) Status: Chronic (5) HLD (hyperlipidemia) Status: Chronic (6) Afib Status: Chronic (7) GERD (gastroesophageal reflux disease) Status: Chronic (8) Obesity Status: Chronic GLYNN HOOKS MD May 27, 2021 11:15
[2021-05-27 15:33] LABS: HEMOGLOBIN 8.1 g/dL (13.3-17.7)
[2021-05-27] MEDS: TAMSULOSIN 0.4 MG (FLOMAX) CAP PO SCH (21:02)
[2021-05-27] MEDS: meTOproloL SUCCINATE 50 MG (TOPROL XL) TAB PO SCH (21:02)
[2021-05-27] MEDS: ALLOPURINOL 100 MG (ZYLOPRIM) TAB PO SCH (21:03)
[2021-05-27] MEDS: eZETimibe 10 MG (ZETIA) TABLET PO SCH (21:03)
[2021-05-27] MEDS: SIMvastatin 40 MG (ZOCOR) TAB PO SCH (21:07)
[2021-05-28 00:27] VITALS: BP 159/71
[2021-05-28] MEDS: NS IV 1000 ML 1,000 ML IV SCH ×3 (03:22→22:05)
[2021-05-28 04:16] VITALS: BP 115/56
[2021-05-28 06:04] LABS: HEMOGLOBIN 7.5 g/dL (13.3-17.7)
[2021-05-28 06:37] LABS: POTASSIUM 3.9 MMOL/L (3.6-5.0)
[2021-05-28 06:38] LABS: CALCIUM 8.1 MG/DL (8.5-10.1)
[2021-05-28 06:43] LABS: CREATININE SERUM 2.01 MG/DL (0.60-1.30)
[2021-05-28] MEDS: inSUlin ASPART (NovoLOG) 1 UNIT/0.01 ML (CHARGE PER UNIT) SC SCH ×4 (06:50→20:28)
[2021-05-28 07:57] VITALS: BP 118/63
[2021-05-28] MEDS: AMIODARONE 200 MG (CORDARONE) TAB PO SCH ×2 (08:12→20:25)
[2021-05-28] MEDS: PANTOPRAZOLE 40 MG (PROTONIX) VIAL IV SCH ×2 (08:12→20:24)
[2021-05-28] MEDS: LOSARTAN 100 MG (COZAAR) TABLET PO SCH (08:12)
--- NOTE | 2021-05-28 08:18 | Progress Note - Surgery ---
STEPHANIE FARRELL MED STUDENT 05/28/21 0818: Subjective Date Seen by a Provider: May 28, 2021 Time Seen by a Provider: 07:45 Subjective/Events-last exam Patient reports feeling better today. Denies SOB, lightheadedness, nausea, vomiting, and abdominal pain. Reports having one brown colored BM overnight. Denies blood or melena in stool. Denies hematuria. Tolerating po clears well. Hgb 7.5 today from 8.1 yesterday. Review of Systems General: No Chills, No Night Sweats, No Fatigue, No Malaise HEENT: No Head Aches, No Visual Changes Pulmonary: No Dyspnea, No Cough Cardiovascular: No: Chest Pain, Palpitations Gastrointestinal: No: Nausea, Vomiting, Abdominal Pain, Melena, Hematochezia Genitourinary: No Dysuria, No Frequency Musculoskeletal: No: neck pain, back pain Neurological: No: Weakness, Numbness, Confusion Objective Exam Vital Signs Date Time Temp Pulse Resp B/P (MAP) Pulse Ox O2 Delivery O2 Flow Rate FiO2 05/28/21 07:57 36.6 68 20 118/63 (81) 96 Room Air 05/28/21 07:00 59 05/28/21 04:16 36.6 60 18 115/56 (75) 95 Room Air 05/28/21 01:00 59 05/28/21 00:27 36.4 66 22 159/71 (100) 97 Room Air 05/27/21 19:55 36.4 65 22 130/66 (87) 96 Room Air 05/27/21 19:50 Room Air 05/27/21 19:00 61 05/27/21 15:40 36.6 63 20 150/65 (93) 99 Room Air 05/27/21 13:22 36.5 65 18 116/62 (80) 96 Room Air 05/27/21 12:55 70 05/27/21 12:03 36.2 64 18 136/63 (87) 97 Room Air 05/27/21 09:57 36.3 68 146/75 97 Room Air 05/27/21 09:39 Room Air 05/27/21 09:35 36.4 66 20 122/65 97 Room Air I & O 05/28/21 07:00 Intake Total 4251.25 ml Balance 4251.25 ml Capillary Refill : General Appearance: No Apparent Distress, Obese HEENT: PERRL/EOMI, Moist Mucous Membranes, Pale Conjunctivae (L), Pale Conjunctivae (R) Neck: Normal Inspection, Non Tender Respiratory: Lungs Clear, Normal Breath Sounds, No Accessory Muscle Use, No Respiratory Distress Cardiovascular: Regular Rate, Rhythm, No Edema, Normal Peripheral Pulses Peripheral Pulses: 2+ Dorsalis Pedis (R), 2+ Left Dors-Pedis (L), 2+ Radial Pulses (R), 2+ Radial Pulses (L) Gastrointestinal: normal bowel sounds, non tender, soft Extremity: Normal Capillary Refill, Normal Inspection, Non Tender, No Calf Tenderness, No Pedal Edema Neurologic/Psychiatric: Alert, Oriented x3, No Motor/Sensory Deficits, Normal Mood/Affect Skin: Normal Color, Warm/Dry Lymphatic: No Adenopathy (Head and Neck) Results Lab Laboratory Tests 05/27/21 10:09: Glucometer 120H 05/27/21 14:48: Hemoglobin 8.1#L, Hematocrit 27L 05/27/21 15:42: Glucometer 113H 05/27/21 20:06: Glucometer 99 05/28/21 05:53: Hemoglobin 7.5L, Hematocrit 25L, Sodium Level 141, Potassium Level 3.9, Chloride Level 115H, Carbon Dioxide Level 18L, Anion Gap 8, Blood Urea Nitrogen 26H, Creatinine 2.01H, Estimat Glomerular Filtration Rate 34, BUN/Creatinine Ratio 13, Glucose Level 105, Calcium Level 8.1L 05/28/21 06:37: Glucometer 105 Assessment/Plan Assessment/Plan Assessment/Plan Symptomatic Anemia -Improving Melena/GIB s/p blood transfusion Atrial fibrillation Anticoagulated GERD CDK stage 4 NIDDM HTN COPD BRENDA Patient with acute blood loss anemia, hgb 7.5 this am from 8.1 yesterday afternoon s/p 2 units prbc's 2-25, 1 unit prbc 2- clear liquid diet, tolerating well Protonix Transfuse prbc PRN to keep hgb >7 Trend H and H continue hold anticoagulation Bowel prep today EGD/colonoscopy saturday to further evaluate source of GIB. PAVEL ALVARADO DO 05/28/21 1144: Subjective Subjective/Events-last exam Patient hemoglobin 7.5. Patient no more bloody stools or dark stools. Patient feeling well. Patient with no other complaints at this time. Denies any nausea vomiting fever sweats chills shortness of breath or chest pain. Tolerating clear liquids. Planning on endoscopy tomorrow. Objective Exam General Appearance: No Apparent Distress, Obese HEENT: Moist Mucous Membranes, Pale Conjunctivae (L), Pale Conjunctivae (R) Neck: Normal Inspection, Non Tender Respiratory: Chest Non Tender, No Accessory Muscle Use, No Respiratory Distress Cardiovascular: Regular Rate, Rhythm, No JVD Gastrointestinal: non tender, soft Extremity: Normal Capillary Refill, Normal Inspection, Non Tender Neurologic/Psychiatric: Alert, Oriented x3 Skin: Normal Color, Warm/Dry Lymphatic: No Adenopathy (Head and Neck) Assessment/Plan Assessment/Plan Assessment/Plan Symptomatic Anemia Melena/GIB s/p blood transfusion Atrial fibrillation Anticoagulated GERD CDK stage 4 NIDDM HTN COPD BRENDA Patient with acute blood loss anemia, hgb 7.5 this am from 8.1 yesterday afternoon s/p 2 units prbc's 2-25, 1 unit prbc 2-26 clear liquid diet, tolerating well Protonix Transfuse prbc PRN to keep hgb >7 Trend H and H continue hold anticoagulation Bowel prep today EGD/colonoscopy saturday to further evaluate source of GIB. Supervisory-Addendum Brief Verification & Attestation Participated in pt care: history, MDM, physical Personally performed: exam, history, MDM, supervision of care Care discussed with: Medical Student Procedures: n/a Results interpretation: Verified all documentation Verification and Attestation of Medical Student E/M Service A medical student performed and documented this service in my presence. I reviewed and verified all information documented by the medical student and made modifications to such information, when appropriate. I personally performed the physical exam and medical decision making. Pavel Alvarado, May 28, 2021,11:44 STEPHANIE FARRELL MED STUDENT May 28, 2021 08:18 PAVEL ALVARADO DO May 28, 2021 11:44
--- NOTE | 2021-05-28 10:31 | Progress Note - Hospitalist ---
Subjective HPI/CC On Admission Date Seen by Provider: May 28, 2021 Time Seen by Provider: 09:50 Subjective/Events-last exam He has been having diarrhea. He has not seen any blood in his stools. He denies abdominal pain. He has been having some gas. He denies nausea and vomiting. Objective Exam Vital Signs Vital Signs Date Time Temp Pulse Resp B/P (MAP) Pulse Ox O2 Delivery O2 Flow Rate FiO2 05/28/21 08:00 Room Air 05/28/21 07:57 36.6 68 20 118/63 (81) 96 Capillary Refill : General Appearance: No Apparent Distress, Obese Respiratory: Lungs Clear, No Respiratory Distress Cardiovascular: Regular Rate, Rhythm, No Murmur Gastrointestinal: Normal Bowel Sounds, Soft Extremity: Normal Inspection, No Pedal Edema Neurologic/Psychiatric: Alert, Normal Mood/Affect Skin: Normal Color, Warm/Dry Results/Procedures Lab Laboratory Tests 05/27/21 14:48 05/28/21 05:53 Patient resulted labs reviewed. Imaging: Reviewed Imaging Report Assessment/Plan Assessment and Plan Assess & Plan/Chief Complaint ABLA UGIB MAIKOL Melena Hgb 7.5 Transfuse to keep Hgb >7 s/p 3 units PRBC Surgery following Clear liquid diet IV fluids IV PPI BID s/p IV Infed Prepping today for EGD/colonoscopy tomorrow HTN HLD T2DM AFib Continue home meds Hold anticoagulation Hold Metformin Sliding scale insulin Diagnosis/Problems Diagnosis/Problems (1) ABLA (acute blood loss anemia) Status: Acute (2) UGIB (upper gastrointestinal bleed) Status: Acute (3) Melena Status: Acute (4) HTN (hypertension) Status: Chronic (5) HLD (hyperlipidemia) Status: Chronic (6) Afib Status: Chronic (7) GERD (gastroesophageal reflux disease) Status: Chronic (8) Obesity Status: Chronic GLYNN HOOKS MD May 28, 2021 10:31
[2021-05-28] MEDS ORDERED: GOLYTELY POWDER 4000 ML BTL PO NR (11:45)
[2021-05-28 11:52] VITALS: BP 131/68
[2021-05-28 16:02] VITALS: BP 155/75
[2021-05-28 19:32] VITALS: BP 138/60
[2021-05-28] MEDS: meTOproloL SUCCINATE 50 MG (TOPROL XL) TAB PO SCH (20:25)
[2021-05-28] MEDS: ALLOPURINOL 100 MG (ZYLOPRIM) TAB PO SCH (20:25)
[2021-05-28] MEDS: eZETimibe 10 MG (ZETIA) TABLET PO SCH (20:25)
[2021-05-28] MEDS: SIMvastatin 40 MG (ZOCOR) TAB PO SCH (20:25)
[2021-05-28] MEDS: TAMSULOSIN 0.4 MG (FLOMAX) CAP PO SCH (20:25)
[2021-05-29] VITALS (8 sets, daily range): BP systolic 68–179; BP diastolic 30–74
[2021-05-29] MEDS: inSUlin ASPART (NovoLOG) 1 UNIT/0.01 ML (CHARGE PER UNIT) SC SCH ×3 (06:00→16:02)
[2021-05-29 07:29] LABS: POTASSIUM 3.8 MMOL/L (3.6-5.0)
[2021-05-29 07:30] LABS: CALCIUM 8.4 MG/DL (8.5-10.1)
[2021-05-29 07:34] LABS: CREATININE SERUM 1.82 MG/DL (0.60-1.30)
--- NOTE | 2021-05-29 07:56 | Progress Note - Surgery ---
STEPHANIE FARRELL MED STUDENT 05/29/21 0756: Subjective Date Seen by a Provider: May 29, 2021 Time Seen by a Provider: 07:30 Subjective/Events-last exam Patient reports feeling good today. No nausea, vomiting, abdominal pain, SOB, chest pain, or dizziness. Tolerated bowel prep well. Reports slept well overnight. Hgb stable at 8.0 this am. Plan for EGD/Colonoscopy later today. Review of Systems General: No Chills, No Night Sweats HEENT: No Head Aches, No Visual Changes Pulmonary: No Dyspnea, No Cough Cardiovascular: No: Chest Pain, Palpitations, Edema Gastrointestinal: No: Nausea, Vomiting, Abdominal Pain, Melena, Hematochezia Genitourinary: No Dysuria, No Frequency Musculoskeletal: No: neck pain, back pain Neurological: No: Weakness, Numbness, Confusion Objective Exam Vital Signs Date Time Temp Pulse Resp B/P (MAP) Pulse Ox O2 Delivery O2 Flow Rate FiO2 05/29/21 04:00 36.9 67 20 171/68 (102) 97 Room Air 05/29/21 00:57 64 05/29/21 00:00 36.8 68 22 149/64 (92) 97 Room Air 05/28/21 20:00 Room Air 05/28/21 19:32 36.4 65 22 138/60 (86) 95 Room Air 05/28/21 19:00 65 05/28/21 16:02 36.3 56 18 155/75 (101) 99 Room Air 05/28/21 12:41 61 05/28/21 11:52 36.3 65 18 131/68 (89) 98 Room Air 05/28/21 08:00 Room Air 05/28/21 07:57 36.6 68 20 118/63 (81) 96 Room Air I & O 05/29/21 07:00 Intake Total 3530 ml Balance 3530 ml Capillary Refill : General Appearance: No Apparent Distress, Obese HEENT: PERRL/EOMI, Moist Mucous Membranes Neck: Normal Inspection, Non Tender Respiratory: Lungs Clear, Normal Breath Sounds, No Accessory Muscle Use, No Respiratory Distress Cardiovascular: Regular Rate, Rhythm, No Edema, Normal Peripheral Pulses Peripheral Pulses: 2+ Dorsalis Pedis (R), 2+ Left Dors-Pedis (L), 2+ Radial Pulses (R), 2+ Radial Pulses (L) Gastrointestinal: normal bowel sounds, non tender, soft Extremity: Normal Inspection, Non Tender, No Calf Tenderness, No Pedal Edema Neurologic/Psychiatric: Alert, Oriented x3, No Motor/Sensory Deficits, Normal Mood/Affect Skin: Normal Color, Warm/Dry Lymphatic: No Adenopathy (Head and Neck) Results Lab Laboratory Tests 05/28/21 10:11: Glucometer 105 05/28/21 12:17: SARS-CoV-2 RNA (RT-PCR) Not Detected 05/28/21 16:04: Glucometer 120H 05/28/21 20:12: Glucometer 100 05/29/21 05:33: Hemoglobin 8.0L, Hematocrit 27L, Sodium Level 142, Potassium Level 3.8, Chloride Level 116H, Carbon Dioxide Level 18L, Anion Gap 8, Blood Urea Nitrogen 15, Creatinine 1.82H, Estimat Glomerular Filtration Rate 38, BUN/Creatinine Ratio 8, Glucose Level 82, Calcium Level 8.4L 05/29/21 06:18: Glucometer 90 Microbiology 05/28/21 MRSA Screen - Final, Complete MRSA not isolated Assessment/Plan Assessment/Plan Assessment/Plan Symptomatic Anemia- Improving Melena/GIB s/p blood transfusion Atrial fibrillation Anticoagulated GERD CDK stage 4 NIDDM HTN COPD BRENDA Hgb 8.0 today from 7.5 yesterday Denies further melena or hematochezia s/p 2 units prbc's 2-25, 1 unit prbc 2-26 NPO today Protonix Transfuse prbc PRN to keep hgb >7 Trend H and H continue hold anticoagulation EGD/colonoscopy today to further evaluate source of GIB. PAVEL ALVARADO DO 05/29/21 1428: Subjective Subjective/Events-last exam Feeling good. Tolerated prep. NPO currently. Hgb stable. No new complaints. Denies n/v fever sweats chills shortness of breath or chest pain. Objective Exam General Appearance: No Apparent Distress, Obese HEENT: PERRL/EOMI, Moist Mucous Membranes Neck: Normal Inspection, Non Tender, Supple Respiratory: Chest Non Tender, No Accessory Muscle Use, No Respiratory Distress Cardiovascular: Regular Rate, Rhythm, No JVD Gastrointestinal: non tender, soft Extremity: Normal Inspection, Non Tender Neurologic/Psychiatric: Alert, Oriented x3 Skin: Warm/Dry, Pallor (minimal) Lymphatic: No Adenopathy (Head and Neck) Assessment/Plan Assessment/Plan Assessment/Plan Symptomatic Anemia- Improving Melena/GIB s/p blood transfusion Atrial fibrillation Anticoagulated GERD CDK stage 4 NIDDM HTN COPD BRENDA Hgb 8.0 today from 7.5 yesterday Denies further melena or hematochezia s/p 2 units prbc's 2-25, 1 unit prbc 2-26 NPO today Protonix Transfuse prbc PRN to keep hgb >7 Trend H and H continue hold anticoagulation EGD/colonoscopy today to further evaluate source of GIB. Supervisory-Addendum Brief Verification & Attestation Participated in pt care: history, MDM, physical Personally performed: exam, history, MDM, supervision of care Care discussed with: Medical Student Procedures: n/a Results interpretation: Verified all documentation Verification and Attestation of Medical Student E/M Service A medical student performed and documented this service in my presence. I reviewed and verified all information documented by the medical student and made modifications to such information, when appropriate. I personally performed the physical exam and medical decision making. Pavel Alvarado, May 29, 2021,11:28 STEPHANIE FARRELL MED STUDENT May 29, 2021 07:56 PAVEL ALVARADO DO May 29, 2021 14:28
[2021-05-29] MEDS: AMIODARONE 200 MG (CORDARONE) TAB PO SCH (08:11)
[2021-05-29] MEDS: LOSARTAN 100 MG (COZAAR) TABLET PO SCH (08:11)
[2021-05-29] MEDS: PANTOPRAZOLE 40 MG (PROTONIX) VIAL IV SCH (08:13)
[2021-05-29] MEDS: NS IV 1000 ML 1,000 ML IV SCH (11:14)
--- NOTE | 2021-05-29 11:14 | Progress Note - Hospitalist ---
Subjective HPI/CC On Admission Date Seen by Provider: May 29, 2021 Time Seen by Provider: 09:55 Jus Lange is a 76 year old male with PMH HTN, HLD, T2DM, AFib, obesity, who presented with lightheadedness. He has been feeling dizzy. He also reports shortness of breath. He has had some chest tightness. He has noticed some dark stools. He denies fevers. He denies cough. He denies abdominal pain. He has not had nausea or vomiting. He is on blood thinners for AFib. He has a history of GI bleed a few years ago. Subjective/Events-last exam He completed his prep yesterday. He did not see any blood in his stools. He denies pain. Objective Exam Vital Signs Vital Signs Date Time Temp Pulse Resp B/P (MAP) Pulse Ox O2 Delivery O2 Flow Rate FiO2 05/29/21 08:10 36.7 62 20 179/74 (109) 97 Room Air Capillary Refill : General Appearance: No Apparent Distress, Obese Respiratory: Lungs Clear, No Respiratory Distress Cardiovascular: Regular Rate, Rhythm, No Murmur Gastrointestinal: Normal Bowel Sounds, Non Tender, Soft Extremity: Normal Inspection, No Pedal Edema Neurologic/Psychiatric: Alert, Normal Mood/Affect Skin: Normal Color, Warm/Dry Results/Procedures Lab Laboratory Tests 05/29/21 05:33 Patient resulted labs reviewed. Imaging: Reviewed Imaging Report Assessment/Plan Assessment and Plan Assess & Plan/Chief Complaint ABLA UGIB Hgb 8, stable s/p 3 units PRBC Surgery following NPO Continue PPI EGD/colonoscopy today MAIKLO s/p IV Infed HTN HLD T2DM AFib Continue home meds Hold anticoagulation Hold Metformin Sliding scale insulin Melena, resolved Diagnosis/Problems Diagnosis/Problems (1) ABLA (acute blood loss anemia) Status: Acute (2) UGIB (upper gastrointestinal bleed) Status: Acute (3) Melena Status: Resolved Resolution Date/Time: 05/29/21 @ 11:14 (4) HTN (hypertension) Status: Chronic (5) HLD (hyperlipidemia) Status: Chronic (6) Afib Status: Chronic (7) GERD (gastroesophageal reflux disease) Status: Chronic (8) Obesity Status: Chronic GLYNN HOOKS MD May 29, 2021 11:14
[2021-05-29] MEDS ORDERED: LACTATED RINGERS 1,000 ML IV ONE (12:01)
[2021-05-29] MEDS ORDERED: HURRICAINE EXT TUBE (BENZOCAINE) ONE (12:08)
[2021-05-29] MEDS ORDERED: LACTATED RINGERS 1,000 ML IV STA (12:09)
[2021-05-29] MEDS ORDERED: PROPOFOL INJECTION 50 ML IV ONE (12:13)
[2021-05-29] MEDS ORDERED: HURRICAINE EXT TUBE (BENZOCAINE) XX PRN (12:15)
--- NOTE | 2021-05-29 12:59 | Anesthesia-General Post-Op ---
MAC Patient Condition Mental Status/LOC: Same as Preop Cardiovascular: Satisfactory Nausea/Vomiting: Absent Respiratory: Satisfactory Pain: Controlled Complications: Absent Post Op Complications Complications None Follow Up Care/Instructions Patient Instructions None needed. Anesthesiology Discharge Order Discharge Order Patient is doing well, no complaints, stable vital signs, no apparent adverse anesthesia problems. No complications reported per nursing. SANDRA BANUELOS CRNA May 29, 2021 12:59
[2021-05-29] MEDS ORDERED: PANT40TA52 PO (14:00)
--- NOTE | 2021-05-30 05:32 | OPERATIVE REPORT ---
DATE OF SERVICE: 05/29/2021 PREOPERATIVE DIAGNOSES: Symptomatic anemia, melena, gastrointestinal bleed. POSTOPERATIVE DIAGNOSES: Slight duodenitis, gastritis, diverticulosis. PROCEDURE: EGD with biopsies, colonoscopy. SURGEON: Pavel Alvarado DO ANESTHESIA: Per [employer] SUPERVISOR. ESTIMATED BLOOD LOSS: None. COMPLICATIONS: None. INDICATIONS: The patient is a 76-year-old male, who is symptomatic anemia. He was on anticoagulation and his hemoglobin was found to be below 6. He has been transfused. He has not had any further dark stools since admission. His hemoglobin has stabilized. He understands risks and benefits of procedures and wishes to proceed. Consent was signed in the chart. DESCRIPTION OF PROCEDURE: The patient was taken to the endoscopy suite, placed in left lateral recumbent position. Timeout was performed. Scope was inserted in mouth, down the esophagus, stomach and into the duodenum without difficulty. No polyps, masses or ulcerations within the duodenum. Some erythematous changes present though where possibly had some small leaking prior to treatment. Scope was then continuously retracted back into stomach, where it was further insufflated. No polyps, masses or ulcerations visualized. In the antrum and the body, small patch of inflammation present as well. Generalized maybe a little bit of slight gastritis. Biopsy of the antrum was obtained. Scope was retroflexed noting no other pathology. Scope was returned to its normal position, slowly withdrawn to the distal esophagus. No polyps, masses or ulcerations. Biopsy of GE junction was obtained. Scope was slowly retracted back until completely removed. Digital rectal exam was performed. No palpable polyps, masses or ulcerations. Scope was inserted in the rectum and advanced all the way to cecum with minimal difficulty. Prep was adequate with irrigation and suction. Scope was then slowly retracted back. No polyps, masses or ulcerations within the cecum, ascending, transverse, descending colon and sigmoid colon, some diverticulosis present. No other pathology noted. Scope was continuously retracted back into the rectum where scope was also retroflexed just noting some internal hemorrhoids. No other pathology. Scope was returned to its normal position, slowly withdrawn until completely removed. The patient tolerated the procedure well without complications and was taken to recovery room in stable condition. RECOMMENDATIONS: The patient will continue on Protonix. If continues to have a drop in hemoglobin, would consider capsule endoscopy for evaluation of the small bowel. The patient recommended high fiber diet due to the diverticulosis. The patient will need repeat colonoscopy on as needed basis. The patient will follow up to discuss pathology results of biopsies obtained. CC: Patricia Moeller -- requested, unable to deliver. Job ID: [id number] DocumentID: [id number] Dictated Date: 05/29/2021 14:32:12 Cut Order Hand Date: 05/30/2021 01:17:26 Dictated By: PAVEL ALVARADO DO
== END 2021-05-29 16:14 | disposition home or self-care (01) | DRG 378 ==
LOC: EDUNIT# 11:08 → ER 11:09 → 4TH 11:33
PROVIDERS: ADMIT Internal Medicine; ATTEND Internal Medicine
PROC: 0DJD8ZZ Inspection of Lower Intestinal Tract, Via Natural or Artificial Opening Endoscopic (ICD-10-PCS; 2021-05-29)
PROC: 0DB98ZX Excision of Duodenum, Via Natural or Artificial Opening Endoscopic, Diagnostic (ICD-10-PCS; principal; 2021-05-29 12:05)
PROC: 0DB48ZX Excision of Esophagogastric Junction, Via Natural or Artificial Opening Endoscopic, Diagnostic (ICD-10-PCS; 2021-05-29 12:05)
DX: K29.81 Duodenitis with bleeding (principal); N18.4 Chronic kidney disease, stage 4 (severe); D62 Acute posthemorrhagic anemia; E78.00 Pure hypercholesterolemia, unspecified; K57.31 Diverticulosis of large intestine without perforation or abscess with bleeding; K29.71 Gastritis, unspecified, with bleeding; K21.9 Gastro-esophageal reflux disease without esophagitis; M19.90 Unspecified osteoarthritis, unspecified site; G89.29 Other chronic pain; M54.9 Dorsalgia, unspecified; I48.91 Unspecified atrial fibrillation; Z87.891 Personal history of nicotine dependence; J44.9 Chronic obstructive pulmonary disease, unspecified; I12.9 Hypertensive chronic kidney disease with stage 1 through stage 4 chronic kidney disease, or unspecified chronic kidney disease; E66.9 Obesity, unspecified; E11.22 Type 2 diabetes mellitus with diabetic chronic kidney disease; Z96.653 Presence of artificial knee joint, bilateral; G47.33 Obstructive sleep apnea (adult) (pediatric); K64.9 Unspecified hemorrhoids; Z20.822 Contact with and (suspected) exposure to COVID-19; Z68.38 Body mass index [BMI] 38.0-38.9, adult
CPT/HCPCS: 36415; 71045; 80048; 82728; 82947; 83540; 83550; 85014; 85018; 85025; 86850; 86900; 86901; 86920; 87081; 87636

== ENCOUNTER → 2021-05-26 | Outpatient (CLI) | payer MEDICARE ==
[~2021-05-26] MED LIST changes: +AMIO200T50 PO; +C,E,1CAP PO; +CHOL10007 PO; +EMPA25TA PO; +EZET-61 PO; -GADOTERATE 0.5 MMOL/ML (CLARISCAN) 20 ML VIAL IV ONE; +LOSA100T57 PO; +METO50TA7 PO; +PANT40TA52 PO; +RIVA20TA2 PO
[2021-05-26 10:48] LABS: BASOPHILS % (AUTO) 0 % (0-10); EOSINOPHILS % (AUTO) 0 % (0-10); HEMATOCRIT 21 % (40-54); LYMPHOCYTES # (AUTO) 1.1 10^3/uL (1.0-4.0); LYMPHOCYTES % (AUTO) 15 % (12-44); MEAN CORPUSCULAR HEMOGLOBIN 23 pg (25-34); MEAN CORPUSCULAR HGB CONC 29 g/dL (32-36); MEAN CORPUSCULAR VOLUME 81 fL (80-99); MEAN PLATELET VOLUME 10.1 fL (9.0-12.2); MONOCYTES # (AUTO) 0.5 10^3/uL (0.0-1.0); MONOCYTES % (AUTO) 7 % (0-12); NEUTROPHILS # (AUTO) 5.5 10^3/uL (1.8-7.8); NEUTROPHILS % (AUTO) 76 % (42-75); PLATELET COUNT 182 10^3/uL (130-400); WHITE BLOOD COUNT 7.3 10^3/uL (4.3-11.0)
[2021-05-26 10:58] LABS: HEMOGLOBIN 5.9 g/dL (13.3-17.7)
[2021-05-26 11:07] LABS: ALANINE AMINOTRANSFERASE 24 U/L (0-55); ALBUMIN 3.8 GM/DL (3.2-4.5); ALKALINE PHOSPHATASE 34 U/L (40-136); BILIRUBIN,TOTAL 0.3 MG/DL (0.1-1.0); BUN/CREATININE RATIO 20; CALCIUM 8.5 MG/DL (8.5-10.1); CARBON DIOXIDE 16 MMOL/L (21-32); CHLORIDE 109 MMOL/L (98-107); CREATININE SERUM 2.85 MG/DL (0.60-1.30); GFR ESTIMATED 22; GLUCOSE 206 MG/DL (70-105); POTASSIUM 4.2 MMOL/L (3.6-5.0); SODIUM 137 MMOL/L (135-145); TOTAL PROTEIN 6.1 GM/DL (6.4-8.2)
== END ==
LOC: CARD 10:30
PROVIDERS: ATTEND Nurse Practitioner Family
DX: R42 Dizziness and giddiness (principal); R53.1 Weakness; R06.00 Dyspnea, unspecified
CPT/HCPCS: 36415; 80053; 84484; 85025

== ENCOUNTER → 2022-01-22 | Outpatient (CLI) | payer MEDICARE ==
[~2022-01-22] MED LIST changes: +AMIO200T50 PO; +C,E,1CAP PO; +CHOL10007 PO; +EMPA25TA PO; +EZET-61 PO; -GLUC1TAB20 PO; +GLUC1TAB21 PO; +LOSA100T57 PO; +METO50TA7 PO; +PANT40TA52 PO; +RIVA20TA2 PO
--- NOTE | 2022-01-22 17:34 | Diagnostic Imaging Report ---
PROCEDURE: MR imaging cervical spine without contrast. TECHNIQUE: Multiplanar, multisequence MR imaging of the cervical spine was performed without contrast. DATE: January 22, 2022. COMPARISON: Cervical spine radiographs January 22, 2022. INDICATION: 76-year-old male, neck pain. FINDINGS: There is a cervical levocurvature. There is no evidence of a diffuse marrow infiltrating or replacing process. There is no identified compression deformity or fracture. There are Modic endplate degenerative related changes adjacent to the C3-C4 disc space. There is moderate to severe disc height loss at this level as well as at C3-C4. There is severe disc height loss at C5-C6 and moderate to severe disc height loss at C6-C7. There are additional endplate degenerative related changes at these levels. There is no identified abnormal signal in the cervical spinal cord. C2-C3: There is a small posterior disc osteophyte complex. There are left facet degenerative changes. The uncovertebral and facet joints are unremarkable. There is no foraminal narrowing. There is no spinal canal stenosis. C3-C4: There is a posterior disc osteophyte complex. There are left facet degenerative changes. There is mild right and severe left foraminal narrowing. There is moderate spinal canal stenosis. C4-C5: There is a posterior disc osteophyte complex. There are right greater than left uncovertebral degenerative changes. There is severe right and moderate left foraminal narrowing. There is severe spinal canal stenosis. C5-C6: There is a posterior disc osteophyte complex. There are bilateral uncovertebral degenerative changes. There is severe bilateral foraminal narrowing. There is severe spinal canal stenosis. C6-C7: There is a posterior disc osteophyte complex. The uncovertebral and facet joints are unremarkable. There is severe bilateral foraminal narrowing. There is moderate spinal canal stenosis. C7-T1: There is no disc bulge. The uncovertebral and facet joints are unremarkable. There is no foraminal narrowing. There is no spinal canal stenosis. There is a T2 hyperintense lesion in the right neck musculature measuring 3.4 x 2.1 cm in axial extent. This is not in the included [id number] on the sagittal images. This has a craniocaudal extent of 4.9 cm. This may relate to a lipoma but is difficult to definitively classify as fat given presence only on a single sequence. IMPRESSION: 1. Multilevel, predominantly disc and uncovertebral degenerative changes of the cervical spine as described level by level above. 2. No identified abnormal cord signal. 3. Probable lipoma in the right neck musculature measuring 3.4 x 2.1 x 4.9 cm in size although difficult to definitively characterize. Dictated by: Dictated on workstation # [id number]
--- NOTE | 2022-01-22 17:43 | Diagnostic Imaging Report ---
INDICATION: Neck pain EXAM: Cervical spine FINDINGS: AP and lateral views of the cervical spine shows normal vertebral body height and alignment. There is disc space narrowing at C4-C5, C5-C6 and C6-C7. There is no fracture or prevertebral soft tissue swelling. There is calcified atherosclerotic plaque at both carotid bifurcations. IMPRESSION: Degenerative disc changes at C4-C5, C5-C6 and C6-C7. Dictated by: Dictated on workstation # [id number]
== END ==
LOC: RAD 14:45
PROVIDERS: ATTEND Pain Medicine Interventional Pain Medicine
DX: M47.812 Spondylosis without myelopathy or radiculopathy, cervical region (principal); M48.02 Spinal stenosis, cervical region; M50.31 Other cervical disc degeneration, high cervical region
CPT/HCPCS: 72040; 72141

== ENCOUNTER → 2022-03-27 | Outpatient (CLI) | payer MEDICARE | LOC: CARD 11:29 | PROVIDERS: ATTEND Physician Assistant | DX: I11.9 Hypertensive heart disease without heart failure (principal); I34.0 Nonrheumatic mitral (valve) insufficiency | CPT/HCPCS: 93306 ==

== ENCOUNTER → 2022-04-04 | Outpatient (CLI) | payer MEDICARE ==
[~2022-04-04] VITALS: Ht 167 cm; Wt 95.0 kg
[~2022-04-04] MED LIST changes: +CATHETER FLUSH 10 ML SYR IVP PRN; +REGADENOSON 0.4 MG/5 ML SYR (LEXISCAN) IV ONE
[2022-04-04 09:02] VITALS: BP 159/76
[2022-04-04 09:14] VITALS: BP 142/69
--- NOTE | 2022-04-04 11:29 | Cardiology Stress Test Report ---
Stress Test Report Date of Procedure/Referring: Date of Procedure: Apr 04, 2022 PCP Asim Cohen MD Admitting Physician Admitting Physician: Attending Physician: Spring Frausto Indications: PAF Baseline Heart Rate: 60 Baseline Blood Pressure: Blood Pressure Systolic: 142 Blood Pressure Diastolic: 69 Baseline Vitals Vital Signs Date Time Temp Pulse Resp B/P (MAP) Pulse Ox O2 Delivery O2 Flow Rate FiO2 04/04/22 09:02 55 16 159/76 (103) 99 Room Air Baseline EKG: Baseline EKG: NSR Summary After explaining the procedure to the patient, he signed a consent and then brought to the stress nuclear laboratory. Patient received 0.4 mg Lexiscan for stress test, ECG, heart rate and blood pressure were monitored continuously. Resting and stress dose of radio tracer were injected, imaging was acquired and reviewed in short axis, horizontal long axis and vertical long axis views. TID: 1.19 SSS: 2 SDS: 2 EF: 53 1. Patient tolerated test well 2. Patient was in sinus rhythm during test 3. Appropriate heart rate and blood pressure response to Lexiscan injection 4. No significant ischemia or infarction noted on SPECT images 5. Normal left ventricular size, ejection fraction 53% Copy Copies To 1: ASIM COHEN MD, BASHAR J MD Apr 04, 2022 11:29
== END ==
LOC: CARD 08:00
PROVIDERS: ATTEND Physician Assistant
DX: I48.0 Paroxysmal atrial fibrillation (principal)
CPT/HCPCS: 78452; 93017; A9502

== ENCOUNTER → 2023-02-05 | Outpatient (CLI) | payer MEDICARE ==
[~2023-02-05] MED LIST changes: -CATHETER FLUSH 10 ML SYR IVP PRN; +EZET-83 PO; -EZET1TAB26 PO; -LOSA100T57 PO; +LOSA100T58 PO; -REGADENOSON 0.4 MG/5 ML SYR (LEXISCAN) IV ONE
[2023-02-05 16:23] LABS: HEMOGLOBIN 10.6 g/dL (13.3-17.7)
[2023-02-05 16:25] LABS: ABSOLUTE RETIC # 138 10e9/uL (24-90); BASOPHILS % (AUTO) 1 % (0-10); EOSINOPHILS % (AUTO) 0 % (0-10); HEMATOCRIT 36 % (40-54); LYMPHOCYTES % (AUTO) 13 % (12-44); MEAN CORPUSCULAR HEMOGLOBIN 24 pg (25-34); MEAN CORPUSCULAR HGB CONC 29 g/dL (32-36); MEAN CORPUSCULAR VOLUME 80 fL (80-99); MEAN PLATELET VOLUME 10.8 fL (9.0-12.2); MONOCYTES # (AUTO) 0.2 10^3/uL (0.0-1.0); MONOCYTES % (AUTO) 3 % (0-12); NEUTROPHILS # (AUTO) 6.4 10^3/uL (1.8-7.8); NEUTROPHILS % (AUTO) 81 % (42-75); PLATELET COUNT 160 10^3/uL (130-400); RETICULOCYTE % 3.05 % (0.50-2.40); WHITE BLOOD COUNT 7.9 10^3/uL (4.3-11.0)
[2023-02-05 16:37] LABS: ANISOCYTOSIS SLIGHT; BAND NEUTROPHILS 0 %; BASOPHILS % (MANUAL) 0 %; EOSINOPHILS % (MANUAL) 0 %; LYMPHOCYTES % (MANUAL) 13 %; MONOCYTES % (MANUAL) 2 %; NEUTROPHILS % (MANUAL) 85 %; POLYCHROMASIA SLIGHT
== END ==
LOC: LAB 15:11
PROVIDERS: ATTEND Internal Medicine
DX: D64.9 Anemia, unspecified (principal)
CPT/HCPCS: 36415; 85007; 85027; 85045; 85055

== ENCOUNTER 2023-02-22 10:53 | Outpatient (RCR) | payer MEDICARE ==
[2023-02-15 13:05] VITALS: BP 143/62
[2023-02-15] MEDS: FERRIC CARBOXYMALTOSE INJ 750 MG in NS (IVPB) 250 ML 250 ML IV SCH (13:42)
[2023-02-22 10:57] VITALS: BP 168/68
[2023-02-22] MEDS: FERRIC CARBOXYMALTOSE INJ 750 MG in NS (IVPB) 250 ML 250 ML IV SCH (11:25)
== END 2023-02-22 11:55 | disposition home or self-care (01) ==
LOC: SDC 10:53
PROVIDERS: ATTEND Internal Medicine
DX: D50.9 Iron deficiency anemia, unspecified (principal)
CPT/HCPCS: 96365